=== PATIENT | female | born 1940 | race Caucasian/White ===

== ENCOUNTER 2018-01-18 12:41 | Inpatient (IN) | payer MEDICARE ==
[2018-01-18] MEDS ORDERED: ASPIRIN 81 MG TABLET, CHEWABLE PO ONE (13:02)
[2018-01-18] MEDS ORDERED: DILTIAZEM HCL/D5W 125 MG/125 ML RTUINJ IV PRN ×2 (13:19→15:35)
[2018-01-18] MEDS ORDERED: DILTIAZEM HCL INJ 25 MG/5 ML VIAL IV ONE (13:19)
[2018-01-18 13:27] LABS: ABSOLUTE BASOPHILS # (AUTO) 0.1 10^3/uL (0.0-0.2); ABSOLUTE LYMPHOCYTES (AUTO) 1.1 10^3/uL (0.5-4.7); ABSOLUTE MONOCYTES (AUTO) 0.9 10^3/uL (0.1-1.4); BASOPHILS % (AUTO) 0.6 % (0-2); EOSINOPHILS % (AUTO) 0.2 % (0-6); HEMATOCRIT 45.3 % (36.0-47.0); HEMOGLOBIN 15.2 g/dL (12.0-15.5); LYMPHOCYTES % (AUTO) 10.2 % (13-45); MEAN CORPUSCULAR HEMOGLOBIN 30.9 pg (27.0-33.4); MEAN CORPUSCULAR HGB CONC 33.4 g/dL (32.0-36.0); MEAN CORPUSCULAR VOLUME 93 fl (80-97); MONOCYTES % (AUTO) 7.9 % (3-13); PLATELET COUNT 303 10^3/uL (150-450); RED CELL DISTRIBUTION WIDTH 13.5 % (11.5-14.0); SEGMENTED NEUTROPHILS % (AUTO) 81.1 % (42-78); TOTAL CELLS COUNTED % (AUTO) 100 %; WHITE BLOOD COUNT 11.2 10^3/uL (4.0-10.5)
--- NOTE | 2018-01-18 13:43 | EKG REPORT ---
SEVERITY:- ABNORMAL ECG - A FLUTTER WITH RVR. MINIMAL ST DEPRESSION, INFERIOR LEADS NONSPECIFIC T ABNORMALITIES, LATERAL LEADS : Confirmed by: Wayne Herrera MD 18-Jan-2018 13:43:21
[2018-01-18 13:47] LABS: ALANINE AMINOTRANSFERASE 36 U/L (9-52); ALKALINE PHOSPHATASE 80 U/L (38-126); ANION GAP 9 (5-19); ASPARTATE AMINO TRANSFERASE 29 U/L (14-36); BILIRUBIN,DIRECT 0.2 mg/dL (0.0-0.4); BILIRUBIN,TOTAL 0.9 mg/dL (0.2-1.3); BLOOD UREA NITROGEN 24 mg/dL (7-20); CALCIUM 9.6 mg/dL (8.4-10.2); CARBON DIOXIDE 30 mmol/L (22-30); CHLORIDE 103 mmol/L (98-107); CREATINE KINASE 24 U/L (30-135); GLUCOSE 133 mg/dL (75-110); POTASSIUM 4.4 mmol/L (3.6-5.0); SODIUM 142.4 mmol/L (137-145); TOTAL PROTEIN 7.4 g/dL (6.3-8.2)
--- NOTE | 2018-01-18 13:56 | RADIOLOGY REPORT (SQ) ---
EXAM DESCRIPTION: CHEST SINGLE VIEW COMPLETED DATE/TIME: 01/18/2018 1:41 pm REASON FOR STUDY: afib new onset COMPARISON: None. EXAM PARAMETERS: NUMBER OF VIEWS: One view. TECHNIQUE: Single frontal radiographic view of the chest acquired. RADIATION DOSE: NA LIMITATIONS: None. FINDINGS: LUNGS AND PLEURA: The lungs are hyperexpanded. There is ill-defined opacification in the lung bases, possible chronic interstitial change. MEDIASTINUM AND HILAR STRUCTURES: No masses. Contour normal. HEART AND VASCULAR STRUCTURES: Cardiac silhouette is enlarged. Mild pulmonary vascular congestion. BONES: No acute findings. HARDWARE: None in the chest. OTHER: No other significant finding. IMPRESSION: 1. Borderline cardiomegaly with mild pulmonary vascular congestion but no mateo pulmona ry edema. 2. What appear to be chronic interstitial changes in the lung bases. Cannot entirely rule out a pne umonia in the left lower lobe or right lower lobe. TECHNICAL DOCUMENTATION: JOB ID: [id number] [employer]- All Rights Reserved Reading location - IP/workstation name: [email or web address]
[2018-01-18 13:58] LABS: CREATINE KINASE MB 0.92 ng/mL (<4.55); TROPONIN I 0.032 ng/mL
[2018-01-18 14:02] LABS: INTERNATIONAL RATION (INR) 1.02; PARTIAL THROMBOPLASTIN TIME 34.3 SEC (23.5-35.8); PROTHROMBIN TIME 14.1 SEC (11.4-15.4)
[2018-01-18] MEDS ORDERED: HEPARIN SOD (PORCINE) 1,000 UNIT/ML 10 ML VIAL IV ONE (14:09)
[2018-01-18] MEDS ORDERED: HEPARIN SODIUM,PORCINE/D5W 25,000 UNIT/250 ML RTUINJ IV PRN (14:09)
--- NOTE | 2018-01-18 14:45 | ER Document Report ---
ED General - General Chief Complaint: Shortness Of Breath Stated Complaint: SHORTNESS OF BREATH Time Seen by Provider: 01/18/18 13:17 TRAVEL OUTSIDE OF THE [place] IN LAST 30 DAYS: No - HPI Patient complains to provider of: Shortness of breath Notes: Patient coming in for shortness of breath was seen in local urgent care and was found to have tachycardia plus A. fib RVR therefore was referred to the ER for further evaluation. Patient upon my evaluation an EKG performed showing A. fib RVR with a heart rate between 150 on the monitor patient is mass between 150- 160. Patient denies any chest pain at this time. Patient states she has been short of breath for 1 week. Patient states her on past medical history significant for COPD due to smoking. Patient states she does continue to smoke. Patient denies any allergy denies any recent travel. Denies any fevers chills nausea vomiting diarrhea. - Related Data Allergies/Adverse Reactions: No Known Allergies Allergy (Unverified 01/18/18 12:50) Past Medical History - Social History Smoking Status: Current Every Day Smoker Family History: Reviewed & Not Pertinent Review of Systems - Review of Systems Constitutional: No symptoms reported EENT: No symptoms reported Cardiovascular: Dyspnea Respiratory: No symptoms reported Gastrointestinal: No symptoms reported Genitourinary: No symptoms reported Female Genitourinary: No symptoms reported Musculoskeletal: No symptoms reported Skin: No symptoms reported Hematologic/Lymphatic: No symptoms reported Neurological/Psychological: No symptoms reported -: Yes All other systems reviewed and negative Physical Exam - Vital signs Vitals: Temp Pulse Resp BP Pulse Ox 97.4 F 51 L 18 138/93 H 94 01/18/18 12:53 01/18/18 12:53 01/18/18 12:53 01/18/18 12:53 01/18/18 12:53 Interpretation: Tachycardic - General General appearance: Appears well, Alert - HEENT Head: Normocephalic, Atraumatic Eyes: Normal Pupils: PERRL - Respiratory Respiratory status: No respiratory distress Chest status: Nontender Breath sounds: Normal Chest palpation: Normal - Cardiovascular Rhythm: Irregularly irregular, Tachycardia Heart sounds: Normal auscultation Murmur: No - Abdominal Inspection: Normal Distension: No distension Bowel sounds: Normal Tenderness: Nontender Organomegaly: No organomegaly - Back Back: Normal, Nontender - Extremities General upper extremity: Normal inspection, Nontender, Normal color, Normal ROM , Normal temperature General lower extremity: Normal inspection, Nontender, Normal color, Normal ROM , Normal temperature, Normal weight bearing. No: Marla's sign - Neurological Neuro grossly intact: Yes Cognition: Normal Orientation: AAOx4 Viola Coma Scale Eye Opening: Spontaneous Viola Coma Scale Verbal: Oriented Zayda Coma Scale Motor: Obeys Commands Viola Coma Scale Total: 15 Speech: Normal Motor strength normal: LUE, RUE, LLE, RLE Sensory: Normal - Psychological Associated symptoms: Normal affect, Normal mood - Skin Skin Temperature: Warm Skin Moisture: Dry Skin Color: Normal Course - Re-evaluation Re-evalutation: 01/18/18 16:15 Patient coming in for evaluation of shortness of breath and tachycardia. Patient was found to be in A. fib RVR. Patient was given a dose of Cardizem and also started on heparin drip. Patient did obtain rate control. Laboratory studies that show signs of congestive heart failure. Patient otherwise feeling much better at the rate control. Chest x-ray shows fluid overload otherwise laboratory results not reveal any critical pathology. Discussed with hospitalist will admit the patient to IM for further evaluation if you are your new onset CHF. - Vital Signs Vital signs: Temp Pulse Resp BP Pulse Ox 97.4 F 51 L 22 H 128/98 H 91 L 01/18/18 12:53 01/18/18 12:53 01/18/18 16:01 01/18/18 16:01 01/18/18 16:01 - Laboratory Result Diagrams: 01/18/18 13:15 01/18/18 13:15 Laboratory results interpreted by me: 01/18/18 01/18/18 01/18/18 13:15 13:15 13:15 WBC 11.2 H Seg Neutrophils % 81.1 H Lymphocytes % 10.2 L Absolute Neutrophils 9.0 H BUN 24 H Glucose 133 H Creatine Kinase 24 L NT-Pro-B Natriuret Pep 9390 H Urine Protein Urine Ketones Urine Nitrite Urine Bilirubin Urine Urobilinogen Ur Leukocyte Esterase 01/18/18 14:30 WBC Seg Neutrophils % Lymphocytes % Absolute Neutrophils BUN Glucose Creatine Kinase NT-Pro-B Natriuret Pep Urine Protein 100 H Urine Ketones 25 H Urine Nitrite POSITIVE H Urine Bilirubin MODERATE H Urine Urobilinogen 2.0 H Ur Leukocyte Esterase LARGE H Critical Care Note - Critical Care Note Total time excluding time spent on procedures (mins): 35 Comments: Multiple evaluation for patient with A. fib RVR new-onset CHF new-onset A. fib Discharge - Discharge Clinical Impression: Atrial fibrillation with RVR Congestive heart failure Qualifiers: Heart failure type: unspecified Heart failure chronicity: unspecified Qualified Code(s): I50.9 - Heart failure, unspecified Condition: Good Disposition: ADMITTED INPATIENT Admitting Provider: Jermainist [facility] [place] [facility] Admitted: [facility]
[2018-01-18 15:06] LABS: APPEARANCE,URINE CLOUDY; BILIRUBIN,URINE MODERATE (NEGATIVE); COLOR,URINE DARK YELLOW; GLUCOSE, URINE NEGATIVE (NEGATIVE); KETONES,URINE 25 mg/dL (NEGATIVE); LEUKOCYTE ESTERASE,URINE LARGE (NEGATIVE); NITRITE,URINE POSITIVE (NEGATIVE); PROTEIN,URINE 100 mg/dL (NEGATIVE)
[2018-01-18 15:15] LABS: URINE AMPHETAMINES SCREEN NEGATIVE; URINE BARBITURATES SCREEN NEGATIVE; URINE BENZODIAZEPINES SCREEN NEGATIVE; URINE COCAINE SCREEN NEGATIVE; URINE MARIJUANA (THC) SCREEN NEGATIVE; URINE METHADONE SCREEN NEGATIVE; URINE PHENCYCLIDINE SCREEN NEGATIVE
[2018-01-18] MEDS ORDERED: ONDANSETRON HCL INJ/PF 4 MG/2 ML SDV IV PRN (15:16)
[2018-01-18] MEDS ORDERED: OXYCODONE-ACETAMINOPHEN 5-325 MG TABLET PO PRN (15:16)
[2018-01-18] MEDS ORDERED: LEVALBUTEROL HCL NEB 0.63 MG/3 ML AMPUL NEB PRN (15:16)
[2018-01-18] MEDS ORDERED: FUROSEMIDE 20 MG TABLET PO ONE (15:46)
[2018-01-18] MEDS ORDERED: HEPARIN SOD (PORCINE) 1,000 UNIT/ML 10 ML VIAL IV PRN (17:09)
[2018-01-18] MEDS: LEVOFLOXACIN 750 MG/D5W RTU 750 MG/150 ML RTUPB IV SCH (18:11)
[2018-01-18] MEDS: DILTIAZEM HCL 30 MG TABLET PO SCH ×2 (18:11→23:28)
--- NOTE | 2018-01-18 18:33 | PDOC CONSULTATION ---
Consultation Consult Date: 01/18/18 Attending physician:: KOMAL NAZARIO Consult reason:: Atrial flutter fibrillation History of Present Illness Admission Date/PCP: 01/18/18 15:48 Patient complains of: Shortness of breath and palpitations History of Present Illness: JAMES BRINK is a 77 year old female coming in for shortness of breath was seen in local urgent care and was found to have tachycardia plus A. fib RVR therefore was referred to the ER for further evaluation. Patient upon my evaluation an EKG performed showing A. fib RVR with a heart rate between 150 on the monitor patient is mass between 150-160. Patient denies any chest pain at this time. Patient states she has been short of breath for 1 week. Patient states her on past medical history significant for COPD due to smoking. Patient states she does continue to smoke. Patient denies any allergy denies any recent travel. Denies any fevers chills nausea vomiting diarrhea. This history obtained by the ER physician was reviewed and confirmed. In addition patient told me that she had noted cough and cold symptoms about 2 weeks ago. Since then she has also noted intermittent palpitations. The symptoms got worse today with increased shortness of breath and therefore see sought medical attention. Patient claims that prior to this episode of illness she was walking about 1-1 and half miles a day. She does however smokes on a regular basis. Patient denied any prior history of myocardial infarction, angina, congestive heart failure. Past Medical History Cardiac Medical History: Reports: Hyperlipidema Social History Information Source: Patient Smoking Status: Current Every Day Smoker - Advance Directive Resuscitation Status: Full Code Surrogate healthcare decision maker:: Patient's grandson with whom she lives with Family History Family History: Reviewed & Not Pertinent Parental Family History Reviewed: Yes Children Family History Reviewed: Yes Sibling(s) Family History Reviewed.: Yes - No significant family history Medication/Allergy Home Medications: Atorvastatin Calcium [Lipitor 20 mg Tablet] 20 mg PO QHS 01/18/18 Gabapentin [Neurontin 300 mg Capsule] 300 mg PO DAILY 01/18/18 Allergies/Adverse Reactions: No Known Allergies Allergy (Unverified 01/18/18 12:50) Review of Systems Review of Systems: Please see history of present illness and past medical history as wall. Constitutional: No fever or chills reported. Recent cough and cold symptoms reported Head : No recent chronic headaches, recent head injury. Eyes: No recent eye pain, diplopia, redness, discharge, acute visual changes. Ears: No recent chronic ear pain, acute hearing loss, ear discharge. Oral cavity: No recent ulcerations, bleeding, oral cavity discomfort. Neck: No recent acute neck pain reported. Hematologic: No recent easy bruising or bleeding or hematologic malignancy reported. Lymphatic: No recent lymphatic malignancy, chronic lymphadenopathy reported yet Cardiovascular system review: See history of present illness. Respiratory system review: No recent chronic cough, hemoptysis, blood clots in the lungs reported. Mild Shortness of breath on exertion Gastrointestinal system review: Negative for any recent acute or chronic abdominal pain, hematemesis, melena, recent change in bowel habits. Genitourinary system review: No recent acute or chronic hematuria, flank pain, UTI etc. reported. Skin system review: Negative for any recent abnormal bruising, no rash, no pruritus reported. Neurologic: No prior history of strokes, mini strokes, seizure disorder. Psychologic: No history of major psychosis or major depression reported. Musculoskeletal: Minor aches and pains reported. No acute joint swelling reported. Endocrine: No recent polyuria, polydipsia, recent heat or cold intolerance. Physical Exam Vital Signs: Temp Pulse Resp BP Pulse Ox 97.4 F 51 L 22 H 128/98 H 91 L 01/18/18 12:53 01/18/18 12:53 01/18/18 16:01 01/18/18 16:01 01/18/18 16:01 Exam: GENERAL: well-nourished and in no acute distress. Alert and oriented x3 HEAD: Atraumatic, normocephalic. EYES: Pupils equal round and reactive to light, extraocular movements intact, sclera anicteric, conjunctiva are normal. ENT: TMs normal, nares patent, oropharynx clear without exudates. Moist mucous membranes. No oral ulcerations or bleeding gums noted NECK: supple without lymphadenopathy. Trachea is central. No cervical or axillary lymphadenopathy noted. Carotids are 2+, JVD WNL LUNGS: Respiration seems mildly labored with significant scattered bilateral wheezes rales or rhonchi noted. No significant dullness noted on percussion. CHEST: Palpation of the chest wall shows no significant chest wall tenderness. No other significant abnormalities noted. HEART: [place] [employer], No PSH, 1/6 DAYANNA aortic area, 1/6 muir systolic murmur mitral area, no rubs, no gallops. ABDOMEN: Soft, no significant tenderness appreciated, normoactive bowel sounds. No guarding, no rebound. No rigidity noted . No masses appreciated. EXTREMITIES: Pedal pulses are 1-2+, no calf tenderness noted. No clubbing or cyanosis. Negative pedal edema noted NEUROLOGICAL: Focused neurological exam showed no significant neurologic deficit. Normal speech, no focal weakness appreciated. PSYCH: Normal mood, normal affect. Judgment and insight within normal limits. SKIN: No significant ecchymosis, skin is noted to be warm. MUSCULOSKELETAL EXAM: No significant acute joint swelling noted. Results Laboratory Results: 01/18/18 16:55 Troponin I 0.031 EKG Comments: Atrial flutter with variable conduction. No acute ST segment changes noted. Impressions: Chest X-Ray 01/18/18 13:02 IMPRESSION: 1. Borderline cardiomegaly with mild pulmonary vascular congestion but no mateo pulmonary edema. 2. What appear to be chronic interstitial changes in the lung bases. Cannot entirely rule out a pneumonia in the left lower lobe or right lower lobe. Assessment & Plan - Diagnosis (1) Atrial fibrillation with RVR Is this a current diagnosis for this admission?: Yes (2) Congestive heart failure Qualifiers: Heart failure type: unspecified Heart failure chronicity: unspecified Qualified Code(s): I50.9 - Heart failure, unspecified Is this a current diagnosis for this admission?: Yes (3) COPD exacerbation Is this a current diagnosis for this admission?: Yes (4) Tobacco abuse Is this a current diagnosis for this admission?: Yes (5) Dyslipidemia Is this a current diagnosis for this admission?: Yes - Notes Notes: Atrial fibrillation with rapid ventricular response: At this point recommend rate control and chronic anticoagulation. Agree with rate control attempts with IV diltiazem and drip. Exact duration not clear but could have been paroxysmal and ongoing for last 2 weeks. CHF: This is based on BNP level. Patient may have slight volume overload. Will recommend low-dose diuretics. COPD exacerbation: Recommend aggressive therapy with steroids, bronchodilator therapy. Recommend a Xopenex. Tobacco abuse: Patient has been advised to quit smoking. Dyslipidemia: Continue statin therapy. Have ordered a 2D echocardiogram. Agree with obtaining cardiac enzymes. - Time Time Spent: 30 to 50 Minutes - CODE STATUS was discussed, patient remains full code. Surrogate decision-maker patient's grandson. Multiple medical problems were addressed. More than 50% of the time spent coordinating care, discussing management plans with involved caregivers. Management plans discussed with involved personnels. Medical decision making was of moderate to high complexity , patient's has multiple comorbidities. Medications reviewed and adjusted accordingly: Yes
--- NOTE | 2018-01-18 18:38 | EKG REPORT ---
SEVERITY:- ABNORMAL ECG - ATRIAL FIBRILLATION, V-RATE 61-108 BORDERLINE T ABNORMALITIES, INFERIOR LEADS : Confirmed by: Wayne Herrera MD 18-Jan-2018 18:38:17
[2018-01-18] MEDS: APIXABAN 5 MG TABLET PO SCH (19:51)
--- NOTE | 2018-01-18 20:29 | PDOC H&P ---
History of Present Illness Admission Date/PCP: 01/18/18 15:48 Patient complains of: Feeling poorly with shortness of breath. History of Present Illness: 77-year-old female with a past medical history of hyperlipidemia and facial nerve pain described. Patient states that a couple weeks ago she did started feeling poorly with upper respiratory complaints. States that she may have had the flu, but was not tested. States that she has exposure to a grandchild in the home who was sick recently. Describes coughing up productive yellow sputum. Describes subjective fever and chills, unmeasured temperature. She described nausea without vomiting. Described 2 episodes of diarrhea. States that she does not have a primary care provider and attempted to receive care from an urgent care facility. On presentation to the emergency department patient has noted atrial flutter with RVR, new onset. She was placed on a diltiazem infusion improvement in her rate control. Patient denies a prior history of cardiac disease. Does describe a heart murmur at and a cardiac echo approximately 10 years ago in which she was told she had a leaky valve. Past Medical History Cardiac Medical History: Reports: Hyperlipidema, Heart Murmur - Story of heart murmur, told that she had a leaky valve. Neurological Medical History: Reports: Other - facial nerve pain described, unclear if this was trigeminal neuralgia Past Surgical History Past Surgical History: Reports: Hysterectomy Social History Smoking Status: Current Every Day Smoker - Advance Directive Resuscitation Status: Full Code Family History Family History: CVA, Hypertension, Malignancy - Colon cancer Parental Family History Reviewed: Yes Children Family History Reviewed: Yes Sibling(s) Family History Reviewed.: Yes Medication/Allergy Home Medications: Atorvastatin Calcium [Lipitor 20 mg Tablet] 20 mg PO QHS 01/18/18 Gabapentin [Neurontin 300 mg Capsule] 300 mg PO DAILY 01/18/18 Allergies/Adverse Reactions: No Known Allergies Allergy (Unverified 01/18/18 12:50) Review of Systems Constitutional: PRESENT: chills, fever(s) Eyes: PRESENT: as per HPI. ABSENT: visual disturbances Ears: PRESENT: as per HPI. ABSENT: hearing changes Nose, Mouth, and Throat: PRESENT: as per HPI. ABSENT: mouth pain Cardiovascular: PRESENT: chest pain Respiratory: PRESENT: dyspnea Gastrointestinal: PRESENT: diarrhea, nausea. ABSENT: abdominal pain, vomiting Genitourinary: ABSENT: dysuria, hematuria Musculoskeletal: ABSENT: deformity, joint swelling Neurological: ABSENT: abnormal speech, focal weakness, frequent falls Psychiatric: ABSENT: anxiety, depression, hallucinations Hematologic/Lymphatic: ABSENT: as per HPI, easy bruising Physical Exam Vital Signs: Temp Pulse Resp BP Pulse Ox 97.4 F 51 L 19 131/79 H 96 01/18/18 12:53 01/18/18 12:53 01/18/18 18:24 01/18/18 18:52 01/18/18 18:52 General appearance: PRESENT: no acute distress, cooperative, thin Head exam: PRESENT: atraumatic, normocephalic Eye exam: PRESENT: EOMI, PERRLA Ear exam: PRESENT: normal external ear exam. ABSENT: bleeding Mouth exam: PRESENT: moist, neck supple Neck exam: PRESENT: full ROM. ABSENT: JVD, tenderness Respiratory exam: PRESENT: crackles, wheezes. ABSENT: accessory muscle use, rhonchi Cardiovascular exam: PRESENT: +S1, +S2, tachycardia. ABSENT: bradycardia, diastolic murmur Pulses: PRESENT: normal radial pulses, normal dorsalis pedis pul Vascular exam: PRESENT: normal capillary refill. ABSENT: pallor GI/Abdominal exam: ABSENT: ascites, distended, mass Extremities exam: ABSENT: calf tenderness, joint swelling Musculoskeletal exam: PRESENT: ambulatory, full ROM Neurological exam: PRESENT: alert, oriented to person, oriented to place, oriented to time, oriented to situation, CN II-XII grossly intact Psychiatric exam: ABSENT: agitated, anxious Focused psych exam: ABSENT: catatonic, paranoid Skin exam: ABSENT: abrasion, cyanosis, mottled Results Laboratory Results: 01/18/18 16:55 Troponin I 0.031 EKG Comments: Atrial flutter with RVR with a rate of 104 Impressions: Chest X-Ray 01/18/18 13:02 IMPRESSION: 1. Borderline cardiomegaly with mild pulmonary vascular congestion but no mateo pulmonary edema. 2. What appear to be chronic interstitial changes in the lung bases. Cannot entirely rule out a pneumonia in the left lower lobe or right lower lobe. Assessment & Plan - Diagnosis (1) Atrial flutter with rapid ventricular response Is this a current diagnosis for this admission?: Yes Plan: EKG shows atrial flutter with RVR. We will continue IV diltiazem infusion. Will start 30 mg every 6 hours p.o. diltiazem. Attempt to transition off the IV drip, monitor patient on the [facility] floor. Cardiology is consulted given this is the patient's new onset of atrial flutter diagnosis. (2) COPD exacerbation Is this a current diagnosis for this admission?: Yes Plan: Shortness of breath with mild wheezing on examination. Possible COPD given patient's significant smoking history. Provide access to as needed napped medicines. Suspect an underlying respiratory infection. Will start Levaquin IV coverage. X-ray with pulmonary edema and the possibility of a lower lobe pneumonia (3) Dyslipidemia Is this a current diagnosis for this admission?: Yes Plan: Continue home medications. (4) Tobacco abuse Is this a current diagnosis for this admission?: Yes Plan: Nicotine patch. (5) Pneumonia Is this a current diagnosis for this admission?: Yes Plan: Possible gram-negative pneumonia, chest x-ray shows possible lower lobe pneumonia. Empiric Levaquin coverage. (6) Cardiomegaly Is this a current diagnosis for this admission?: Yes Plan: Check transthoracic echo Doing dose of Lasix now, given pulmonary congestion on exam.
[2018-01-18] MEDS ORDERED: NICOTINE 14 MG/24 HR PATCH.TD24 TD ONE (21:30)
[2018-01-18] MEDS: GABAPENTIN 300 MG CAPSULE PO SCH (21:36)
[2018-01-18] MEDS: ATORVASTATIN CALCIUM 20 MG TABLET PO SCH (21:38)
[2018-01-19] MEDS: DILTIAZEM HCL 30 MG TABLET PO SCH ×3 (05:32→19:22)
[2018-01-19 06:14] LABS: ABSOLUTE BASOPHILS # (AUTO) 0.1 10^3/uL (0.0-0.2); ABSOLUTE LYMPHOCYTES (AUTO) 0.9 10^3/uL (0.5-4.7); ABSOLUTE MONOCYTES (AUTO) 0.9 10^3/uL (0.1-1.4); ABSOLUTE NEUT (AUTO) 6.3 10^3/uL (1.7-8.2); BASOPHILS % (AUTO) 1.1 % (0-2); EOSINOPHILS % (AUTO) 0.5 % (0-6); HEMATOCRIT 40.3 % (36.0-47.0); HEMOGLOBIN 13.4 g/dL (12.0-15.5); LYMPHOCYTES % (AUTO) 11.4 % (13-45); MEAN CORPUSCULAR HEMOGLOBIN 30.8 pg (27.0-33.4); MEAN CORPUSCULAR HGB CONC 33.3 g/dL (32.0-36.0); MEAN CORPUSCULAR VOLUME 92 fl (80-97); MONOCYTES % (AUTO) 10.8 % (3-13); PLATELET COUNT 270 10^3/uL (150-450); RED BLOOD COUNT 4.36 10^6/uL (3.72-5.28); RED CELL DISTRIBUTION WIDTH 13.5 % (11.5-14.0); SEGMENTED NEUTROPHILS % (AUTO) 76.2 % (42-78); TOTAL CELLS COUNTED % (AUTO) 100 %; WHITE BLOOD COUNT 8.3 10^3/uL (4.0-10.5)
[2018-01-19 06:42] LABS: ANION GAP 8 (5-19); BLOOD UREA NITROGEN 22 mg/dL (7-20); CALCIUM 8.8 mg/dL (8.4-10.2); CARBON DIOXIDE 27 mmol/L (22-30); CHLORIDE 102 mmol/L (98-107); GLUCOSE 110 mg/dL (75-110); POTASSIUM 4.5 mmol/L (3.6-5.0); SODIUM 136.6 mmol/L (137-145); TRIGLYCERIDES 92 mg/dL (<150)
[2018-01-19 06:53] LABS: DIRECT LDL 75 mg/dL (<100)
[2018-01-19] MEDS ORDERED: GABAPENTIN 300 MG CAPSULE PO SCH (10:00)
[2018-01-19] MEDS: ASPIRIN 81 MG TABLET, CHEWABLE PO SCH (10:41)
[2018-01-19] MEDS: APIXABAN 5 MG TABLET PO SCH ×2 (10:41→19:20)
[2018-01-19] MEDS: NICOTINE 14 MG/24 HR PATCH.TD24 TD SCH (10:44)
[2018-01-19] MEDS ORDERED: FUROSEMIDE 20 MG TABLET PO ONE (11:00)
--- NOTE | 2018-01-19 13:32 | PDOC PROGRESS REPORT ---
Subjective Progress Note for:: 01/19/18 Subjective:: Patient seems to be doing significantly better with significant improvement. Pt is denying any chest arm or neck discomfort. Patient denying any PND, orthopnea. Patient denied any sustained palpitations, dizziness, syncope, near syncope. Patient denying any fever chills. Patient denying any other significant discomfort. Patient is maintaining sinus rhythm. Patient was noted to be earlier in atrial fibrillation on admission and subsequently had a run of paroxysmal atrial tachycardia. Review of systems: Rest review of systems negative. Medications: Medications have been reviewed. Reason For Visit: AFLUTTER WITH RVR Physical Exam Vital Signs: Temp Pulse Resp BP Pulse Ox 97.9 F 64 18 123/75 100 01/19/18 11:56 01/19/18 12:37 01/19/18 11:56 01/19/18 11:56 01/19/18 11:56 Intake & Output 01/18/18 01/19/18 01/20/18 06:59 06:59 06:59 Intake Total 882 475 Balance 882 475 Weight 52 kg Exam: GENERAL: well-nourished and in no acute distress. Alert and oriented x3 HEAD: Atraumatic, normocephalic. EYES: Pupils equal round and reactive to light, extraocular movements intact, sclera anicteric, conjunctiva are normal. ENT: TMs normal, nares patent, oropharynx clear without exudates. Moist mucous membranes. No oral ulcerations or bleeding gums noted NECK: supple without lymphadenopathy. Trachea is central. No cervical or axillary lymphadenopathy noted. Carotids are 2+, JVD WNL LUNGS: Respiration seems nonlabored, no significant accessory muscle action noted. Bilateral wheezes rales or rhonchi noted. No significant dullness noted on percussion. CHEST: Palpation of the chest wall shows no significant chest wall tenderness. No other significant abnormalities noted. HEART: [place] [employer], No PSH, 1/6 DAYANNA aortic area, 1/6 muir systolic murmur mitral area, no rubs, no gallops. ABDOMEN: Soft, no significant tenderness appreciated, normoactive bowel sounds. No guarding, no rebound. No rigidity noted . No masses appreciated. EXTREMITIES: Pedal pulses are 1-2+, no calf tenderness noted. No clubbing or cyanosis.trace pedal edema noted NEUROLOGICAL: Focused neurological exam showed no significant neurologic deficit. Normal speech, no focal weakness appreciated. PSYCH: Normal mood, normal affect. Judgment and insight within normal limits. SKIN: No significant ecchymosis, skin is noted to be warm. MUSCULOSKELETAL EXAM: No significant acute joint swelling noted. Results Laboratory Results: 01/19/18 05:54 01/19/18 05:54 01/19/18 01/19/18 05:54 05:54 WBC 8.3 RBC 4.36 Hgb 13.4 Hct 40.3 MCV 92 MCH 30.8 MCHC 33.3 RDW 13.5 Plt Count 270 Seg Neutrophils % 76.2 Lymphocytes % 11.4 L Monocytes % 10.8 Eosinophils % 0.5 Basophils % 1.1 Absolute Neutrophils 6.3 Absolute Lymphocytes 0.9 Absolute Monocytes 0.9 Absolute Eosinophils 0.0 Absolute Basophils 0.1 Sodium 136.6 L Potassium 4.5 Chloride 102 Carbon Dioxide 27 Anion Gap 8 BUN 22 H Creatinine 0.82 Est GFR ( Amer) > 60 Est GFR (Non-Af Amer) > 60 Glucose 110 Calcium 8.8 Magnesium 1.8 Triglycerides 92 Cholesterol 124.30 LDL Cholesterol Direct 75 VLDL Cholesterol 18.0 HDL Cholesterol 31 L 01/18/18 01/19/18 16:55 05:54 Troponin I 0.031 NT-Pro-B Natriuret Pep 5110 H EKG Comments: Twelve-lead EKG shows reviewed. Telemetry strips shows sinus rhythm. Patientnoted to have atrial fibrillation and short run of paroxysmal atrial tachycardia. Impressions: Chest X-Ray 01/18/18 13:02 IMPRESSION: 1. Borderline cardiomegaly with mild pulmonary vascular congestion but no mateo pulmonary edema. 2. What appear to be chronic interstitial changes in the lung bases. Cannot entirely rule out a pneumonia in the left lower lobe or right lower lobe. Assessment & Plan - Diagnosis (1) Atrial fibrillation with RVR Is this a current diagnosis for this admission?: Yes (2) Congestive heart failure Qualifiers: Heart failure type: unspecified Heart failure chronicity: unspecified Qualified Code(s): I50.9 - Heart failure, unspecified Is this a current diagnosis for this admission?: Yes (3) COPD exacerbation Is this a current diagnosis for this admission?: Yes (4) Tobacco abuse Is this a current diagnosis for this admission?: Yes (5) Dyslipidemia Is this a current diagnosis for this admission?: Yes - Notes Notes: Atrial fibrillation with rapid ventricular response: Currently today in sinus rhythm. At this point recommend rate control and chronic anticoagulation. Agree with rate control attempts with diltiazem. Exact duration not clear but could have been paroxysmal and ongoing for last 2 weeks. Paroxysmal atrial tachycardia: Possibly related to COPD and this is a common disorder associated with COPD. Cardizem is well-suited for this arrhythmia. CHF: This is based on BNP level. Patient may have slight volume overload. Will recommend low-dose diuretics. Possibly right-sided. 2D echo is pending. COPD exacerbation: Recommend aggressive therapy with steroids, bronchodilator therapy. Recommend a Xopenex. Tobacco abuse: Patient has been advised to quit smoking. Dyslipidemia: Continue statin therapy. Have ordered a 2D echocardiogram. - Time Time with patient: Greater than 35 minutes - CODE STATUS was discussed, patient remains full code. Surrogate decision-maker patient's grandson. Multiple medical problems were addressed. More than 50% of the time spent coordinating care, discussing management plans with involved caregivers. Management plans discussed with involved personnels. Medical decision making was of moderate to high complexity, patient's has multiple comorbidities. Medications reviewed and adjusted accordingly: Yes
[2018-01-19] MEDS: LEVOFLOXACIN 750 MG/D5W RTU 750 MG/150 ML RTUPB IV SCH (19:21)
--- NOTE | 2018-01-19 21:43 | PDOC PROGRESS REPORT ---
Subjective Progress Note for:: 01/19/18 Subjective:: 77-year-old presenting with COPD exacerbation, possible left-sided pneumonia, new onset atrial fibrillation with RVR. Was initially placed on IV diltiazem infusion and transition to p.o. diltiazem, this morning she converted to normal sinus rhythm. Cardiology is following the case. Continue her on Levaquin support for possible pneumonia, continue on nebulized medicines for COPD exacerbation. Patient's wheezing is improving on exam this morning. TTE test pending at present. Reason For Visit: AFLUTTER WITH RVR Physical Exam Vital Signs: Temp Pulse Resp BP Pulse Ox 97.8 F 63 22 H 116/56 L 100 01/19/18 15:39 01/19/18 15:39 01/19/18 15:39 01/19/18 15:39 01/19/18 15:39 Intake & Output 01/18/18 01/19/18 01/20/18 06:59 06:59 06:59 Intake Total 882 925 Balance 882 925 Weight 52 kg General appearance: PRESENT: no acute distress, cooperative, thin Head exam: PRESENT: atraumatic, normocephalic Eye exam: PRESENT: EOMI, PERRLA Ear exam: PRESENT: normal external ear exam. ABSENT: bleeding Mouth exam: PRESENT: moist, neck supple Neck exam: PRESENT: full ROM. ABSENT: JVD, tenderness Respiratory exam: PRESENT: improved crackles in lower lungs bilaterally, decreased wheezing. ABSENT: accessory muscle use, rhonchi Cardiovascular exam: PRESENT: +S1, +S2, tachycardia. ABSENT: bradycardia, diastolic murmur Pulses: PRESENT: normal radial pulses, normal dorsalis pedis pul Vascular exam: PRESENT: normal capillary refill. ABSENT: pallor GI/Abdominal exam: ABSENT: ascites, distended, mass Extremities exam: ABSENT: calf tenderness, joint swelling Musculoskeletal exam: PRESENT: ambulatory, full ROM Neurological exam: PRESENT: alert, oriented to person, oriented to place, oriented to time, oriented to situation, CN II-XII grossly intact Psychiatric exam: ABSENT: agitated, anxious Focused psych exam: ABSENT: catatonic, paranoid Skin exam: ABSENT: abrasion, cyanosis, mottled Results Laboratory Results: 01/19/18 05:54 01/19/18 05:54 01/19/18 01/19/18 05:54 05:54 WBC 8.3 RBC 4.36 Hgb 13.4 Hct 40.3 MCV 92 MCH 30.8 MCHC 33.3 RDW 13.5 Plt Count 270 Seg Neutrophils % 76.2 Lymphocytes % 11.4 L Monocytes % 10.8 Eosinophils % 0.5 Basophils % 1.1 Absolute Neutrophils 6.3 Absolute Lymphocytes 0.9 Absolute Monocytes 0.9 Absolute Eosinophils 0.0 Absolute Basophils 0.1 Sodium 136.6 L Potassium 4.5 Chloride 102 Carbon Dioxide 27 Anion Gap 8 BUN 22 H Creatinine 0.82 Est GFR ( Amer) > 60 Est GFR (Non-Af Amer) > 60 Glucose 110 Calcium 8.8 Magnesium 1.8 Triglycerides 92 Cholesterol 124.30 LDL Cholesterol Direct 75 VLDL Cholesterol 18.0 HDL Cholesterol 31 L 01/18/18 01/19/18 16:55 05:54 Troponin I 0.031 NT-Pro-B Natriuret Pep 5110 H Impressions: Chest X-Ray 01/18/18 13:02 IMPRESSION: 1. Borderline cardiomegaly with mild pulmonary vascular congestion but no mateo pulmonary edema. 2. What appear to be chronic interstitial changes in the lung bases. Cannot entirely rule out a pneumonia in the left lower lobe or right lower lobe. Assessment & Plan - Diagnosis (1) Atrial flutter with rapid ventricular response Is this a current diagnosis for this admission?: Yes (2) COPD exacerbation Is this a current diagnosis for this admission?: Yes (3) Dyslipidemia Is this a current diagnosis for this admission?: Yes (4) Tobacco abuse Is this a current diagnosis for this admission?: Yes (5) Pneumonia Is this a current diagnosis for this admission?: Yes (6) Cardiomegaly Is this a current diagnosis for this admission?: Yes - Plan Summary Plan Summary: (1) Atrial flutter with rapid ventricular response Is this a current diagnosis for this admission?: Yes Plan: Admission EKG shows atrial flutter with RVR. Now on PO Diltiazem, hold for HR <70. patient appears to have paroxysmal afib, and now back in NSR cardiology following (2) COPD exacerbation Is this a current diagnosis for this admission?: Yes Plan: Shortness of breath with mild wheezing on examination. Possible COPD given patient's significant smoking history. Provide access to as needed pulm medicines. continue Levaquin IV coverage for suspected underlying pulm infection. X-ray with pulmonary edema and the possibility of a lower lobe pneumonia continued on low dose lasix daily (3) Dyslipidemia Is this a current diagnosis for this admission?: Yes Plan: Continue home medications. (4) Tobacco abuse Is this a current diagnosis for this admission?: Yes Plan: Nicotine patch. (5) Pneumonia Is this a current diagnosis for this admission?: Yes Plan: Possible gram-negative pneumonia, chest x-ray shows possible lower lobe pneumonia. Empiric Levaquin coverage. (6) Cardiomegaly Is this a current diagnosis for this admission?: Yes Plan: Check transthoracic echo Doing dose of Lasix now, given pulmonary congestion on exam.
[2018-01-19] MEDS: ATORVASTATIN CALCIUM 20 MG TABLET PO SCH (22:53)
[2018-01-19] MEDS: GABAPENTIN 300 MG CAPSULE PO SCH (22:53)
[2018-01-20] MEDS: DILTIAZEM HCL 30 MG TABLET PO SCH ×4 (01:29→23:57)
[2018-01-20 07:30] LABS: HEMATOCRIT 40.7 % (36.0-47.0); HEMOGLOBIN 13.6 g/dL (12.0-15.5); MEAN CORPUSCULAR HEMOGLOBIN 30.7 pg (27.0-33.4); MEAN CORPUSCULAR HGB CONC 33.3 g/dL (32.0-36.0); MEAN CORPUSCULAR VOLUME 92 fl (80-97); PLATELET COUNT 321 10^3/uL (150-450); RED BLOOD COUNT 4.42 10^6/uL (3.72-5.28); RED CELL DISTRIBUTION WIDTH 13.3 % (11.5-14.0); WHITE BLOOD COUNT 7.3 10^3/uL (4.0-10.5)
[2018-01-20 08:05] LABS: ALBUMIN 3.1 g/dL (3.5-5.0); ANION GAP 8 (5-19); BLOOD UREA NITROGEN 20 mg/dL (7-20); CALCIUM 9.1 mg/dL (8.4-10.2); CARBON DIOXIDE 29 mmol/L (22-30); CHLORIDE 102 mmol/L (98-107); GLUCOSE 93 mg/dL (75-110); PHOSPHORUS 3.9 mg/dL (2.5-4.5); POTASSIUM 4.9 mmol/L (3.6-5.0); SODIUM 138.6 mmol/L (137-145)
[2018-01-20] MEDS ORDERED: METOPROLOL TARTRATE PF/INJ 5 MG/5 ML SDV IV ONE (08:49)
[2018-01-20] MEDS ORDERED: DRONEDARONE HYDROCHLORIDE 400 MG TABLET PO ONE (11:00)
[2018-01-20] MEDS: NICOTINE 14 MG/24 HR PATCH.TD24 TD SCH (11:04)
[2018-01-20] MEDS: FUROSEMIDE 20 MG TABLET PO SCH (11:05)
[2018-01-20] MEDS: APIXABAN 5 MG TABLET PO SCH ×2 (11:05→17:36)
[2018-01-20] MEDS ORDERED: ACETAMINOPHEN 325 MG TABLET ONE (11:05)
[2018-01-20] MEDS: ASPIRIN 81 MG TABLET, CHEWABLE PO SCH (11:06)
[2018-01-20] MEDS ORDERED: DILTIAZEM HCL 30 MG TABLET PO SCH (12:00)
[2018-01-20] MEDS ORDERED: TRAZODONE HCL 50 MG TABLET PO ONE (12:00)
--- NOTE | 2018-01-20 14:29 | PDOC PROGRESS REPORT ---
Subjective Progress Note for:: 01/20/18 Subjective:: Thinks she is doing better overall. Notes that she is having some difficulty with sleeping and feeling anxious at time. Heart rate was better controlled over last 24 hours however this AM was increased to 120-130s. Received 1 * dose of 5mg IV Lopressor with improvement in BPs. Denies chest pain, abdominal pain, NV. Admits that she is a daily smoker however has been refusing nicotene patch. Willing to try. No other complaints. Reason For Visit: AFLUTTER WITH RVR Physical Exam Vital Signs: Temp Pulse Resp BP Pulse Ox 97.6 F 132 H 18 89/67 L 96 01/20/18 12:27 01/20/18 12:27 01/20/18 12:27 01/20/18 12:27 01/20/18 12:27 Intake & Output 01/19/18 01/20/18 01/21/18 06:59 06:59 06:59 Intake Total 882 1543 Balance 882 1543 Weight 52 kg 51.1 kg General appearance: PRESENT: no acute distress, cooperative, thin Mouth exam: PRESENT: moist Respiratory exam: PRESENT: crackles, unlabored, wheezes - Scattered Cardiovascular exam: PRESENT: irregular rhythm, tachycardia GI/Abdominal exam: PRESENT: soft. ABSENT: tenderness Neurological exam: PRESENT: alert, awake, CN II-XII grossly intact Psychiatric exam: PRESENT: anxious Results Laboratory Results: 01/20/18 06:47 01/20/18 06:47 01/20/18 01/20/18 06:47 06:47 WBC 7.3 RBC 4.42 Hgb 13.6 Hct 40.7 MCV 92 MCH 30.7 MCHC 33.3 RDW 13.3 Plt Count 321 Sodium 138.6 Potassium 4.9 Chloride 102 Carbon Dioxide 29 Anion Gap 8 BUN 20 Creatinine 0.93 Est GFR ( Amer) > 60 Est GFR (Non-Af Amer) 58 L Glucose 93 Calcium 9.1 Phosphorus 3.9 Albumin 3.1 L 01/18/18 01/19/18 16:55 05:54 Troponin I 0.031 NT-Pro-B Natriuret Pep 5110 H Impressions: Chest X-Ray 01/18/18 13:02 IMPRESSION: 1. Borderline cardiomegaly with mild pulmonary vascular congestion but no mateo pulmonary edema. 2. What appear to be chronic interstitial changes in the lung bases. Cannot entirely rule out a pneumonia in the left lower lobe or right lower lobe. Assessment & Plan - Diagnosis (1) Atrial fibrillation with RVR Is this a current diagnosis for this admission?: Yes Plan: Admission EKG shows atrial flutter with RVR. - Has been on PO Diltiazem, with good HR control. This AM went back into RVR - Seen by cardiology who wrote from Multaq 400mg daily - Continue Cardizem 30mg q6 hour, hold for HR<60 or SBP<90 - Continue Eliquis 5mg BID daily - TTE ordered - Cardiology following, appreciate recs (2) COPD exacerbation Is this a current diagnosis for this admission?: Yes Plan: Presented with SOB with mild wheezing on examination. DD: Afib with RVR vs. concomitant COPD exacerbation - Has been on Levaquin IV coverage; consider stopping on 01/21 with continued improvement - Encouraged to use nicotene patches (3) Pneumonia Is this a current diagnosis for this admission?: Yes Plan: Unclear based on CXR - Has been on Levaquin, low threshold to dc on 01/21 if continues to improve clinically. (4) Tobacco abuse Is this a current diagnosis for this admission?: Yes Plan: Agreeable to use nicotene patches (5) Insomnia Qualifiers: Insomnia type: due to medical condition Qualified Code(s): G47.01 - Insomnia due to medical condition Is this a current diagnosis for this admission?: Yes Plan: Trial of Trazodone 25mg qhs PRN, ordered 01/20 - Time Time Spent with patient: 15-24 minutes Medications reviewed and adjusted accordingly: Yes Anticipated discharge: Home Within: within 48 hours
--- NOTE | 2018-01-20 16:40 | PDOC PROGRESS REPORT ---
Subjective Progress Note for:: 01/20/18 Subjective:: Patient seems to be doing significantly better this morning but had significant problems with heart rhythm overnight. Patient was noted to have paroxysmal atrial fibrillation and also bradycardia. Patient did receive some Cardizem but this was held because of relative bradycardia.. Pt is denying any chest arm or neck discomfort. Patient denying any PND, orthopnea. Patient denied any sustained palpitations, dizziness, syncope, near syncope. Patient denying any fever chills. Patient denying any other significant discomfort. Patient is maintaining sinus rhythm. Patient was noted to be earlier in atrial fibrillation on admission and subsequently had a run of paroxysmal atrial tachycardia. Patient previously also noted to be bradycardic. Review of systems: Rest review of systems negative. Medications: Medications have been reviewed. Reason For Visit: AFLUTTER WITH RVR Physical Exam Vital Signs: Temp Pulse Resp BP Pulse Ox 97.6 F 87 18 125/98 H 96 01/20/18 15:41 01/20/18 15:41 01/20/18 15:41 01/20/18 15:41 01/20/18 15:41 Intake & Output 01/19/18 01/20/18 01/21/18 06:59 06:59 06:59 Intake Total 882 1543 Balance 882 1543 Weight 52 kg 51.1 kg Exam: GENERAL: well-nourished and in no acute distress. Alert and oriented x3 HEAD: Atraumatic, normocephalic. EYES: Pupils equal round and reactive to light, extraocular movements intact, sclera anicteric, conjunctiva are normal. ENT: TMs normal, nares patent, oropharynx clear without exudates. Moist mucous membranes. No oral ulcerations or bleeding gums noted NECK: supple without lymphadenopathy. Trachea is central. No cervical or axillary lymphadenopathy noted. Carotids are 2+, JVD WNL LUNGS: Respiration seems nonlabored, no significant accessory muscle action noted. Mild bilateral wheezes rales or rhonchi noted. No significant dullness noted on percussion. Diminished breath sounds noted both lungs most likely related to emphysema CHEST: Palpation of the chest wall shows no significant chest wall tenderness. No other significant abnormalities noted. HEART: [place] [employer], No PSH, 1/6 DAYANNA aortic area, 1/6 muir systolic murmur mitral area, no rubs, no gallops. ABDOMEN: Soft, no significant tenderness appreciated, normoactive bowel sounds. No guarding, no rebound. No rigidity noted . No masses appreciated. EXTREMITIES: Pedal pulses are 1-2+, no calf tenderness noted. No clubbing or cyanosis.trace pedal edema noted NEUROLOGICAL: Focused neurological exam showed no significant neurologic deficit. Normal speech, no focal weakness appreciated. PSYCH: Normal mood, normal affect. Judgment and insight within normal limits. SKIN: No significant ecchymosis, skin is noted to be warm. MUSCULOSKELETAL EXAM: No significant acute joint swelling noted. Results Laboratory Results: 01/20/18 06:47 01/20/18 06:47 01/20/18 01/20/18 06:47 06:47 WBC 7.3 RBC 4.42 Hgb 13.6 Hct 40.7 MCV 92 MCH 30.7 MCHC 33.3 RDW 13.3 Plt Count 321 Sodium 138.6 Potassium 4.9 Chloride 102 Carbon Dioxide 29 Anion Gap 8 BUN 20 Creatinine 0.93 Est GFR ( Amer) > 60 Est GFR (Non-Af Amer) 58 L Glucose 93 Calcium 9.1 Phosphorus 3.9 Albumin 3.1 L 01/18/18 01/19/18 16:55 05:54 Troponin I 0.031 NT-Pro-B Natriuret Pep 5110 H EKG Comments: Telemetry strips were reviewed. Shows sinus bradycardia, paroxysmal atrial fibrillation, paroxysmal atrial tachycardia. Impressions: Chest X-Ray 01/18/18 13:02 IMPRESSION: 1. Borderline cardiomegaly with mild pulmonary vascular congestion but no mateo pulmonary edema. 2. What appear to be chronic interstitial changes in the lung bases. Cannot entirely rule out a pneumonia in the left lower lobe or right lower lobe. Assessment & Plan - Diagnosis (1) Atrial fibrillation with RVR Is this a current diagnosis for this admission?: Yes (2) Congestive heart failure Qualifiers: Heart failure type: unspecified Heart failure chronicity: unspecified Qualified Code(s): I50.9 - Heart failure, unspecified Is this a current diagnosis for this admission?: Yes (3) COPD exacerbation Is this a current diagnosis for this admission?: Yes (4) Tobacco abuse Is this a current diagnosis for this admission?: Yes (5) Dyslipidemia Is this a current diagnosis for this admission?: Yes (6) Bradycardia Is this a current diagnosis for this admission?: Yes - Notes Notes: Atrial fibrillation with rapid ventricular response: Started patient on multaq therapy at 400 p.o. twice daily to see if patient can be maintained in sinus rhythm. At this point recommend rate control and chronic anticoagulation. Agree with rate control attempts with diltiazem. Exact duration not clear but could have been paroxysmal and ongoing for last 2 weeks. Patient already on chronic anticoagulation started during this admission. Paroxysmal atrial tachycardia: Possibly related to COPD and this is a common disorder associated with COPD. Cardizem is well-suited for this arrhythmia. Recommend starting back Cardizem at 30 mg p.o. every 6 but hold if heart rate below 60 bpm CHF: This is based on BNP level. Patient may have slight volume overload. Will recommend low-dose diuretics. Possibly right-sided. 2D echo is pending. COPD exacerbation: Recommend aggressive therapy with steroids, bronchodilator therapy. Recommend a Xopenex. Tobacco abuse: Patient has been advised to quit smoking. Patient has symptoms indicative of tobacco withdrawal but does not want nicotine patch. Dyslipidemia: Continue statin therapy. Bradycardia: Patient noted to have mild sinus bradycardia. Possibly related to sinus node suppression secondary to atrial fibrillation. However if patient becomes symptomatic may need pacemaker placement. This was explained to the patient. Patient may end up needing prolonged monitoring as an outpatient. Have ordered a 2D echocardiogram. This is still pending. - Time Time with patient: Greater than 35 minutes - CODE STATUS was discussed, patient remains full code. Surrogate decision-maker unchanged. Multiple medical problems were addressed. More than 50% of the time spent coordinating care, discussing management plans with involved caregivers. Management plans discussed with involved personnels. Medical decision making was of moderate to high complexity, patient's has multiple comorbidities. Medications reviewed and adjusted accordingly: Yes
[2018-01-20] MEDS: LEVOFLOXACIN 750 MG/D5W RTU 750 MG/150 ML RTUPB IV SCH (17:36)
[2018-01-20] MEDS: METOPROLOL TARTRATE PF/INJ 5 MG/5 ML SDV IV PRN (17:37)
[2018-01-20] MEDS: ATORVASTATIN CALCIUM 20 MG TABLET PO SCH (21:38)
[2018-01-20] MEDS: DRONEDARONE HYDROCHLORIDE 400 MG TABLET PO SCH (21:38)
[2018-01-20] MEDS: GABAPENTIN 300 MG CAPSULE PO SCH (21:38)
[2018-01-21] MEDS: DILTIAZEM HCL 30 MG TABLET PO SCH ×3 (05:51→17:46)
[2018-01-21] MEDS: APIXABAN 5 MG TABLET PO SCH ×2 (09:20→17:46)
[2018-01-21] MEDS: ASPIRIN 81 MG TABLET, CHEWABLE PO SCH (09:20)
[2018-01-21] MEDS: NICOTINE 14 MG/24 HR PATCH.TD24 TD SCH (09:21)
[2018-01-21] MEDS: DRONEDARONE HYDROCHLORIDE 400 MG TABLET PO SCH ×2 (09:21→22:26)
[2018-01-21] MEDS: FUROSEMIDE 20 MG TABLET PO SCH (09:21)
--- NOTE | 2018-01-21 09:39 | EKG REPORT ---
SEVERITY:- ABNORMAL ECG - ATRIAL FIBRILLATION : Confirmed by: Melchor Moore 21-Jan-2018 09:38:57
--- NOTE | 2018-01-21 14:02 | XCELERA REPORT ---
[address] [address] Transthoracic Echocardiogram Report Name: JAMES BRINK Age: 77 yrs Gender: Female : 1940 Patient Status: Inpatient Patient Location: [address] [place] [address] Study Date: 01/21/2018 10:35 AM Height: 59 in Weight: 108 lb BSA: 1.4 m2 Procedure: A complete two-dimensional transthoracic echocardiogram was performed (2D, M-mode, spectral and color flow Doppler). The study was technically adequate with some images being suboptimal in quality. Reason For Study: heart failure, new onset aflutter rvr Ordering Physician: EMILY OROZCO Performed By: Laura Diaz Interpretation Summary The left ventricular ejection fraction is normal. The left ventricle is grossly normal size. There is borderline concentric left ventricular hypertrophy. LV diastolic function could not be adequately assessed due to significant valve regurgitation and/or stenosis. Wall motion cannot be accurately commented on, but no definite regional wall motion abnormalities noted. The right ventricle appears to be hypertrophied The right ventricle is normal in size, thickness and function The right ventricular systolic function is normal. The left atrium is moderately dilated. The right atrium is normal in size There is severe mitral annular calcification. There is severe mitral leaflet calcification. There is moderate mitral stenosis. However could not asses this properly. A severe MS can be missed. There is a mild to moderate amount of mitral regurgitation There is no aortic valve stenosis No aortic regurgitation is present. The pulmonic valve is not well visualized. The aortic root is not well visualized but is probably normal size. The inferior vena cava appeared normal and decreased > 50% with respiration (RAP 5-10 mmHg) There is no pericardial effusion. MMode/2D Measurements & Calculations RVDd: 2.5 cm LVIDd: 4.1 cm FS: 38.4 % Ao root diam: 3.2 cm IVSd: 0.91 cm LVIDs: 2.6 cm EDV(Teich): 76.3 ml LVPWd: 0.88 cmESV(Teich): 23.6 ml Ao root area: 8.0 cm2 EF(Teich): 69.1 % LA dimension: 4.6 cm LVOT diam: 1.9 cm LVOT area: 3.0 cm2 Doppler Measurements & Calculations MV E max daniel: MV V2 max: MV P1/2t max daniel: Ao V2 max: 258.6 cm/sec 244.3 cm/sec 257.7 cm/sec 99.9 cm/sec MV max PG: MV P1/2t: 127.6 msec Ao max P.9 mmHg MVA(P1/2t): 1.7 cm2 4.0 mmHg MV V2 mean: MV dec slope: Ao V2 mean: 143.7 cm/sec 591.3 cm/sec2 69.8 cm/sec MV mean PG: Ao mean P.9 mmHg 2.3 mmHg MV V2 VTI: Ao V2 VTI: 63.8 cm 17.5 cm MVA(VTI): JULIAN(I,D): 2.7 cm2 0.74 cm2 JULIAN(V,D): 2.6 cm2 LV V1 max PG: SV(LVOT): 47.3 mlPA V2 max: TR max daniel: 3.1 mmHg 58.2 cm/sec 331.2 cm/sec LV V1 mean PG: PA max P.4 mmHg TR max P.4 mmHg 43.9 mmHg LV V1 max: 87.5 cm/sec LV V1 mean: 53.2 cm/sec LV V1 VTI: 15.9 cm Left Ventricle The left ventricle is grossly normal size. There is borderline concentric left ventricular hypertrophy. The left ventricular ejection fraction is normal. LV diastolic function could not be adequately assessed due to significant valve regurgitation and/or stenosis. Wall motion cannot be accurately commented on, but no definite regional wall motion abnormalities noted. Right Ventricle The right ventricle is normal in size, thickness and function. The right ventricle appears to be hypertrophied. The right ventricular systolic function is normal. Atria The right atrium is normal in size. The left atrium is moderately dilated. Interarterial septum not well visualized and not well dopplered. Cannot comment on ASD/PFO presence. Mitral Valve There is severe mitral annular calcification. There is severe mitral leaflet calcification. There is moderate mitral stenosis. There is a mild to moderate amount of mitral regurgitation. Aortic Valve The aortic valve is grossly normal. There is no aortic valve stenosis. No aortic regurgitation is present. Tricuspid Valve The tricuspid valve is not well visualized, but is grossly normal. There is no tricuspid stenosis. There is a mild amount of tricuspid regurgitation. Right ventricular systolic pressure is estimated to be elevated at 40- 50mmHg. There is mild to moderate pulmonary hypertension by echo. Pulmonic Valve The pulmonic valve is not well visualized. Great Vessels The aortic root is not well visualized but is probably normal size. The inferior vena cava appeared normal and decreased > 50% with respiration (RAP 5-10 mmHg). Effusions There is no pericardial effusion. : EMILY OROZCO > Melchor Moore
[2018-01-21] MEDS: LEVOFLOXACIN 750 MG/D5W RTU 750 MG/150 ML RTUPB IV SCH (17:46)
--- NOTE | 2018-01-21 17:56 | PDOC PROGRESS REPORT ---
Subjective Progress Note for:: 01/21/18 Subjective:: No complaints Review of systems All organ systems evaluated and negative except as in subjective All significant laboratories and diagnostics have been reviewed Reason For Visit: AFLUTTER WITH RVR Physical Exam Vital Signs: Temp Pulse Resp BP Pulse Ox 97.6 F 89 20 102/71 95 01/21/18 03:42 01/21/18 07:00 01/21/18 03:42 01/21/18 03:42 01/21/18 03:42 Intake & Output 01/20/18 01/21/18 01/22/18 06:59 06:59 06:59 Intake Total 1543 990 Balance 1543 990 Weight 51.1 kg 52.9 kg General appearance: PRESENT: cooperative, thin Head exam: PRESENT: atraumatic, normocephalic Eye exam: PRESENT: EOMI, PERRLA Ear exam: PRESENT: normal external ear exam Neck exam: PRESENT: full ROM. ABSENT: JVD, lymphadenopathy, tenderness Respiratory exam: PRESENT: clear to auscultation tato Cardiovascular exam: PRESENT: irregular rhythm. ABSENT: diastolic murmur, systolic murmur Vascular exam: PRESENT: normal capillary refill GI/Abdominal exam: ABSENT: normal bowel sounds, soft, tenderness Extremities exam: PRESENT: full ROM Musculoskeletal exam: PRESENT: ambulatory Neurological exam: PRESENT: alert, awake, oriented to person, oriented to place , oriented to time, oriented to situation, CN II-XII grossly intact Psychiatric exam: PRESENT: appropriate affect, normal mood Skin exam: PRESENT: intact, normal color Results Laboratory Results: 01/20/18 06:47 01/20/18 06:47 01/20/18 06:47 Sodium 138.6 Potassium 4.9 Chloride 102 Carbon Dioxide 29 Anion Gap 8 BUN 20 Creatinine 0.93 Est GFR ( Amer) > 60 Est GFR (Non-Af Amer) 58 L Glucose 93 Calcium 9.1 Phosphorus 3.9 Albumin 3.1 L 01/18/18 01/19/18 16:55 05:54 Troponin I 0.031 NT-Pro-B Natriuret Pep 5110 H Impressions: Chest X-Ray 01/18/18 13:02 IMPRESSION: 1. Borderline cardiomegaly with mild pulmonary vascular congestion but no mateo pulmonary edema. 2. What appear to be chronic interstitial changes in the lung bases. Cannot entirely rule out a pneumonia in the left lower lobe or right lower lobe. Assessment & Plan - Diagnosis (1) Atrial flutter with rapid ventricular response Is this a current diagnosis for this admission?: Yes Plan: Continue current management. Awaiting echocardiogram - Time Time Spent with patient: 15-24 minutes Medications reviewed and adjusted accordingly: Yes Anticipated discharge: Home with Homehealth Within: within 24 hours - Inpatient Certification Based on my medical assessment, after consideration of the patient's comorbidities, presenting symptoms, or acuity I expect that the services needed warrant INPATIENT care.: Yes I certify that my determination is in accordance with my understanding of Medicare's requirements for reasonable and necessary INPATIENT services [42 CFR 412.3e].: Yes Medical Necessity: Need Close Monitoring Due to Risk of Patient Decompensation
[2018-01-21] MEDS: METOPROLOL TARTRATE PF/INJ 5 MG/5 ML SDV IV PRN (20:27)
[2018-01-21] MEDS ORDERED: FUROSEMIDE 40 MG TABLET PO SCH (20:30)
--- NOTE | 2018-01-21 20:32 | PDOC PROGRESS REPORT ---
Subjective Progress Note for:: 01/21/18 Subjective:: Patient seems to be doing significantly better this morning. Patient remains in atrial fibrillation but heart rate is better controlled. Pt is denying any chest arm or neck discomfort. Patient denying any PND, orthopnea. Patient denied any sustained palpitations, dizziness, syncope, near syncope. Patient denying any fever chills. Patient denying any other significant discomfort. Review of systems: Rest review of systems negative. Medications: Medications have been reviewed. Reason For Visit: AFLUTTER WITH RVR Physical Exam Vital Signs: Temp Pulse Resp BP Pulse Ox 97.9 F 62 18 95/69 L 95 01/21/18 19:35 01/21/18 19:35 01/21/18 19:35 01/21/18 19:35 01/21/18 19:35 Intake & Output 01/20/18 01/21/18 01/22/18 06:59 06:59 06:59 Intake Total 1543 990 700 Balance 1543 990 700 Weight 51.1 kg 52.9 kg Exam: GENERAL: well-nourished and in no acute distress. Alert and oriented x3 HEAD: Atraumatic, normocephalic. EYES: Pupils equal round and reactive to light, extraocular movements intact, sclera anicteric, conjunctiva are normal. ENT: TMs normal, nares patent, oropharynx clear without exudates. Moist mucous membranes. No oral ulcerations or bleeding gums noted NECK: supple without lymphadenopathy. Trachea is central. No cervical or axillary lymphadenopathy noted. Carotids are 2+, JVD WNL LUNGS: Respiration seems nonlabored, no significant accessory muscle action noted. Few a scattered wheezes rales or rhonchi noted. No significant dullness noted on percussion. CHEST: Palpation of the chest wall shows no significant chest wall tenderness. No other significant abnormalities noted. HEART: [place] [employer], No PSH, 1/6 DAYANNA aortic area, 1/6 muir systolic murmur mitral area, no rubs, no gallops. ABDOMEN: Soft, no significant tenderness appreciated, normoactive bowel sounds. No guarding, no rebound. No rigidity noted . No masses appreciated. EXTREMITIES: Pedal pulses are 1-2+, no calf tenderness noted. No clubbing or cyanosis.trace pedal edema noted NEUROLOGICAL: Focused neurological exam showed no significant neurologic deficit. Normal speech, no focal weakness appreciated. PSYCH: Normal mood, normal affect. Judgment and insight within normal limits. SKIN: No significant ecchymosis, skin is noted to be warm. MUSCULOSKELETAL EXAM: No significant acute joint swelling noted. Results Laboratory Results: 01/20/18 06:47 01/20/18 06:47 01/18/18 01/19/18 01/21/18 16:55 05:54 15:01 Troponin I 0.031 NT-Pro-B Natriuret Pep 5110 H 5230 H Impressions: Chest X-Ray 01/18/18 13:02 IMPRESSION: 1. Borderline cardiomegaly with mild pulmonary vascular congestion but no mateo pulmonary edema. 2. What appear to be chronic interstitial changes in the lung bases. Cannot entirely rule out a pneumonia in the left lower lobe or right lower lobe. Assessment & Plan - Diagnosis (1) Atrial fibrillation with RVR Is this a current diagnosis for this admission?: Yes (2) Congestive heart failure Qualifiers: Heart failure type: right-sided Heart failure chronicity: acute on chronic Qualified Code(s): I50.813 - Acute on chronic right heart failure Is this a current diagnosis for this admission?: Yes (3) COPD exacerbation Is this a current diagnosis for this admission?: Yes (4) Tobacco abuse Is this a current diagnosis for this admission?: Yes (5) Dyslipidemia Is this a current diagnosis for this admission?: Yes (6) Bradycardia Is this a current diagnosis for this admission?: Yes (7) Mitral stenosis Qualifiers: Cardiac valve disease etiology: etiology unspecified Qualified Code(s): I05.0 - Rheumatic mitral stenosis Is this a current diagnosis for this admission?: Yes (8) Mitral regurgitation Qualifiers: Cardiac valve disease etiology: etiology unspecified Qualified Code(s): I34.0 - Nonrheumatic mitral (valve) insufficiency Is this a current diagnosis for this admission?: Yes - Notes Notes: 2D echocardiogram was technically difficult but does suggest at least moderate mitral stenosis. Patient also noted to have moderate mitral regurgitation. BNP level came back still elevated. Have increased Lasix to 20 mg p.o. twice daily. Continue multaq therapy and Cardizem therapy. Currently patient receiving approximately total of 180 mg of Cardizem daily therefore could be placed on either Cardizem CD 180 mg p.o. daily or 120 mg p.o. twice daily on discharge. Patient will also benefit from a transesophageal echocardiogram or a cardiac MRI /CTA to evaluate mitral stenosis further. Patient will also benefit from a formal pulmonary function test to look at her lung function asked to decide adequacy of her candidacy to address any open heart surgery. Atrial fibrillation with rapid ventricular response: Started patient on multaq therapy at 400 p.o. twice daily to see if patient can be maintained in sinus rhythm. At this point recommend rate control and chronic anticoagulation. Agree with rate control attempts with diltiazem. Exact duration not clear but could have been paroxysmal and ongoing for last 2 weeks. Patient already on chronic anticoagulation started during this admission. Paroxysmal atrial tachycardia: Possibly related to COPD and this is a common disorder associated with COPD. Cardizem is well-suited for this arrhythmia. Recommend starting back Cardizem at 30 mg p.o. every 6 but hold if heart rate below 60 bpm CHF: This is based on BNP level. Patient may have slight volume overload. Will recommend low-dose diuretics. Possibly right-sided. Possibly also related to valvular heart disease. Mitral regurgitation: Overall felt to be moderate. Mitral stenosis: [place] to be clinically moderate. COPD exacerbation: Recommend aggressive therapy with steroids, bronchodilator therapy. Recommend a Xopenex. Tobacco abuse: Patient has been advised to quit smoking. Patient has symptoms indicative of tobacco withdrawal but does not want nicotine patch. Dyslipidemia: Continue statin therapy. Bradycardia: This was noted to be transient. Possibly related to sinus node suppression secondary to atrial fibrillation. However if patient becomes symptomatic may need pacemaker placement. This was explained to the patient. Patient may end up needing prolonged monitoring as an outpatient. 2D echocardiogram results reviewed.. - Time Time with patient: Greater than 35 minutes - CODE STATUS was discussed, patient remains full code. Surrogate decision-maker unchanged. Multiple medical problems were addressed. More than 50% of the time spent coordinating care, discussing management plans with involved caregivers. Management plans discussed with involved personnels. Medical decision making was of moderate to high complexity, patient's has multiple comorbidities. Medications reviewed and adjusted accordingly: Yes
[2018-01-21] MEDS ORDERED: FUROSEMIDE 20 MG TABLET PO ONE (21:30)
[2018-01-21] MEDS ORDERED: TRAZODONE HCL 50 MG TABLET PO SCH (22:00)
[2018-01-21] MEDS: ATORVASTATIN CALCIUM 20 MG TABLET PO SCH (22:26)
[2018-01-21] MEDS: GABAPENTIN 300 MG CAPSULE PO SCH (22:26)
[2018-01-22] MEDS: DILTIAZEM HCL 30 MG TABLET PO SCH ×2 (00:14→06:26)
[2018-01-22] MEDS: NICOTINE 14 MG/24 HR PATCH.TD24 TD SCH (09:11)
[2018-01-22] MEDS: ASPIRIN 81 MG TABLET, CHEWABLE PO SCH (09:11)
[2018-01-22] MEDS: APIXABAN 5 MG TABLET PO SCH ×2 (09:11→17:49)
[2018-01-22] MEDS: DRONEDARONE HYDROCHLORIDE 400 MG TABLET PO SCH ×2 (09:11→21:09)
[2018-01-22] MEDS: FUROSEMIDE 20 MG TABLET PO SCH ×2 (09:11→17:49)
--- NOTE | 2018-01-22 10:39 | EKG REPORT ---
SEVERITY:- ABNORMAL ECG - ATRIAL FIBRILLATION, V-RATE 52-82 : Confirmed by: Melchor Moore 22-Jan-2018 10:38:24
--- NOTE | 2018-01-22 13:13 | PDOC PROGRESS REPORT ---
Subjective Progress Note for:: 01/22/18 Subjective:: Patient seems to be doing better this morning. Patient was noted to convert to sinus rhythm yesterday afternoon but later on at night went back into atrial fibrillation with rapid ventricular response. It seems patient needed IV medication to help control heart rate. Pt is denying any chest arm or neck discomfort. Patient denying any PND, orthopnea. Patient denied any sustained palpitations, dizziness, syncope, near syncope. Patient denying any fever chills. Patient denying any other significant discomfort. 2D echocardiogram results were discussed in detail with the patient and also patient's grandson who is making medical decisions for the patient. Review of systems: Rest review of systems negative. Medications: Medications have been reviewed. Reason For Visit: AFLUTTER WITH RVR Physical Exam Vital Signs: Temp Pulse Resp BP Pulse Ox 97.6 F 36 L 17 120/73 98 01/22/18 11:56 01/22/18 11:56 01/22/18 11:56 01/22/18 11:56 01/22/18 11:56 Intake & Output 01/21/18 01/22/18 01/23/18 06:59 06:59 06:59 Intake Total 990 700 236 Balance 990 700 236 Weight 52.9 kg 52.8 kg Exam: GENERAL: well-nourished and in no acute distress. Alert and oriented x3 HEAD: Atraumatic, normocephalic. EYES: Pupils equal round and reactive to light, extraocular movements intact, sclera anicteric, conjunctiva are normal. ENT: TMs normal, nares patent, oropharynx clear without exudates. Moist mucous membranes. No oral ulcerations or bleeding gums noted NECK: supple without lymphadenopathy. Trachea is central. No cervical or axillary lymphadenopathy noted. Carotids are 2+, JVD WNL LUNGS: Respiration seems nonlabored, no significant accessory muscle action noted. Few a scattered wheezes rales or rhonchi noted. No significant dullness noted on percussion. CHEST: Palpation of the chest wall shows no significant chest wall tenderness. No other significant abnormalities noted. HEART: [place] [employer], No PSH, 1/6 DAYANNA aortic area, 1/6 muir systolic murmur mitral area, no rubs, no gallops. No significant diastolic murmur noted. ABDOMEN: Soft, no significant tenderness appreciated, normoactive bowel sounds. No guarding, no rebound. No rigidity noted . No masses appreciated. EXTREMITIES: Pedal pulses are 1-2+, no calf tenderness noted. No clubbing or cyanosis. negative pedal edema noted NEUROLOGICAL: Focused neurological exam showed no significant neurologic deficit. Normal speech, no focal weakness appreciated. PSYCH: Normal mood, normal affect. Judgment and insight within normal limits. SKIN: No significant ecchymosis, skin is noted to be warm. MUSCULOSKELETAL EXAM: No significant acute joint swelling noted. Results Laboratory Results: 01/20/18 06:47 01/20/18 06:47 01/18/18 01/19/18 01/21/18 16:55 05:54 15:01 Troponin I 0.031 NT-Pro-B Natriuret Pep 5110 H 5230 H EKG Comments: Shows atrial fibrillation with controlled ventricular response with intermittent high rates Impressions: Chest X-Ray 01/18/18 13:02 IMPRESSION: 1. Borderline cardiomegaly with mild pulmonary vascular congestion but no mateo pulmonary edema. 2. What appear to be chronic interstitial changes in the lung bases. Cannot entirely rule out a pneumonia in the left lower lobe or right lower lobe. Assessment & Plan - Diagnosis (1) Atrial fibrillation with RVR Is this a current diagnosis for this admission?: Yes (2) Congestive heart failure Qualifiers: Heart failure type: unspecified Heart failure chronicity: unspecified Qualified Code(s): I50.9 - Heart failure, unspecified Is this a current diagnosis for this admission?: Yes (3) COPD exacerbation Is this a current diagnosis for this admission?: Yes (4) Tobacco abuse Is this a current diagnosis for this admission?: Yes (5) Dyslipidemia Is this a current diagnosis for this admission?: Yes (6) Bradycardia Is this a current diagnosis for this admission?: Yes (7) Mitral stenosis Qualifiers: Cardiac valve disease etiology: etiology unspecified Qualified Code(s): I05.0 - Rheumatic mitral stenosis Is this a current diagnosis for this admission?: Yes (8) Mitral regurgitation Qualifiers: Cardiac valve disease etiology: etiology unspecified Qualified Code(s): I34.0 - Nonrheumatic mitral (valve) insufficiency Is this a current diagnosis for this admission?: Yes - Notes Notes: Atrial fibrillation with rapid ventricular response: Started patient on multaq therapy at 400 p.o. twice daily to see if patient can be maintained in sinus rhythm. However patient had reverted back to atrial fibrillation therefore have added Ranexa at 500 mg p.o. twice daily. There is good literature available that Ranexa along with multaq may actually maintains sinus rhythm more efficiently. Also recommend, at this point recommend rate control and chronic anticoagulation. Have also stopped Levaquin, since it does cause QTC prolongation and since patient is on antiarrhythmics. May consider switching to another antibiotic such as doxycycline or penicillins as they do not seem to interfere with QTC. Also agree with rate control attempts with diltiazem. Exact duration of atrial fibrillation not clear but could have been paroxysmal and ongoing for last 2 weeks. Patient already on chronic anticoagulation started during this admission. Paroxysmal atrial tachycardia: Possibly related to COPD and this is a common disorder associated with COPD. Cardizem is well-suited for this arrhythmia. Could switch to Cardizem CD 120 mg p.o. daily. Patient will benefit from a event monitor as an outpatient. CHF: This is based on BNP level. Patient may have slight volume overload. Will recommend low-dose diuretics. Possibly right-sided. 2D echo results reviewed. COPD exacerbation: Recommend aggressive therapy with steroids, bronchodilator therapy. Recommend a Xopenex. Tobacco abuse: Patient has been advised to quit smoking. Patient has symptoms indicative of tobacco withdrawal but does not want nicotine patch. Dyslipidemia: Continue statin therapy. Bradycardia: This was noted to be transient. Possibly related to sinus node suppression secondary to atrial fibrillation. However if patient becomes symptomatic may need pacemaker placement. This was explained to the patient. Patient may end up needing prolonged monitoring as an outpatient. 2D echocardiogram results reviewed. - Time Time with patient: Greater than 35 minutes - Significant time spent discussing management plans with patient and her grandson. Also discussed with hospitalist. Also wrote orders for patient to be evaluated at tertiary care center especially CT surgery department at either [facility] or [facility] for follow-up appointment. In the meantime, patient can follow-up with me. I will be happy to arrange a event monitor/ mobile cardiac telemetry monitoring and also other evaluations as an outpatient. Any further evaluation such as transesophageal echocardiogram, possible cardiac cath etc. could be scheduled by the tertiary care center when they see the patient in follow-up. Medications reviewed and adjusted accordingly: Yes
[2018-01-22] MEDS ORDERED: ZOLPIDEM TARTRATE 5 MG TABLET PO PRN (13:40)
--- NOTE | 2018-01-22 14:50 | RADIOLOGY REPORT (SQ) ---
EXAM DESCRIPTION: CHEST 2 VIEWS COMPLETED DATE/TIME: 01/22/2018 2:29 pm REASON FOR STUDY: follow up infiltrate COMPARISON: 01/18/2018 EXAM PARAMETERS: NUMBER OF VIEWS: two views TECHNIQUE: Digital Frontal and Lateral radiographic views of the chest acquired. RADIATION DOSE: NA LIMITATIONS: none FINDINGS: LUNGS AND PLEURA: The lungs are hyperexpanded. No acute infiltrate or effusion. No mass. MEDIASTINUM AND HILAR STRUCTURES: No masses or contour abnormalities. HEART AND VASCULAR STRUCTURES: Heart size is borderline. There is no failure. BONES: No acute findings. HARDWARE: None in the chest. OTHER: No other significant finding. IMPRESSION: Borderline cardiomegaly without failure. Chronic lung changes with no acute pulmonary d isease. TECHNICAL DOCUMENTATION: JOB ID: [id number] [employer]- All Rights Reserved Reading location - IP/workstation name: [email or web address]
[2018-01-22] MEDS: RANOLAZINE 500 MG TAB.SR.12H PO SCH (17:49)
[2018-01-22] MEDS: GABAPENTIN 300 MG CAPSULE PO SCH (21:09)
[2018-01-22] MEDS: ATORVASTATIN CALCIUM 20 MG TABLET PO SCH (21:10)
[2018-01-22] MEDS ORDERED: DILTIAZEM HCL 120 MG CAP.SR.24H PO SCH (22:00)
--- NOTE | 2018-01-23 02:21 | PDOC PROGRESS REPORT ---
Subjective Progress Note for:: 01/22/18 Subjective:: No complaints. Ugo had multiple concerns when was told that had been advised by supervisor [employer] to discahrge patient with follow up with him and cardiothoracic surgeon. Patient had an uneventful episode over night when she reverted to atrial fibrillation with rapid ventricular response. Ugo became increasingly disrespectful and was not allowing for the author to step out of the room to talk both the nurse and supervisor [employer]. He followed up the author to the nurse's station. Nurse was advised to contact patient advocate to talk with ugo but was not immediately available. Talked to Dr Moore at length regarding patient's current regimen and adjustment was made on cardiazem dosing. Patient wasmade aware that she was to stay overnight to follow up response. Review of systems All organ systems evaluated and negative except as in subjective All significant laboratories and diagnostics have been reviewed Reason For Visit: AFLUTTER WITH RVR Physical Exam Vital Signs: Temp Pulse Resp BP Pulse Ox 97.6 F 101 H 15 92/53 L 93 01/23/18 00:02 01/23/18 00:02 01/23/18 00:02 01/23/18 00:02 01/23/18 00:02 Intake & Output 01/21/18 01/22/18 01/23/18 06:59 06:59 06:59 Intake Total 990 700 858 Balance 990 700 858 Weight 52.9 kg 52.8 kg General appearance: PRESENT: cooperative, thin Head exam: PRESENT: atraumatic, normocephalic Eye exam: PRESENT: conjunctiva pink, EOMI, PERRLA Mouth exam: PRESENT: neck supple Neck exam: PRESENT: full ROM. ABSENT: JVD, lymphadenopathy, tenderness Respiratory exam: PRESENT: clear to auscultation tato Cardiovascular exam: PRESENT: irregular rhythm. ABSENT: diastolic murmur, systolic murmur GI/Abdominal exam: PRESENT: normal bowel sounds, soft. ABSENT: tenderness Neurological exam: PRESENT: alert, awake, oriented to person, oriented to place , oriented to time, oriented to situation, CN II-XII grossly intact Psychiatric exam: PRESENT: appropriate affect, normal mood Skin exam: PRESENT: intact, normal color Results Laboratory Results: 01/20/18 06:47 01/20/18 06:47 01/18/18 01/19/18 01/21/18 16:55 05:54 15:01 Troponin I 0.031 NT-Pro-B Natriuret Pep 5110 H 5230 H Impressions: Chest X-Ray 01/22/18 00:00 IMPRESSION: Borderline cardiomegaly without failure. Chronic lung changes with no acute pulmonary disease. Assessment & Plan - Diagnosis (1) Atrial flutter with rapid ventricular response Is this a current diagnosis for this admission?: Yes Plan: To change to longacting cardiazem as per cardiology advise. Also to continue ranexa and to continue multaq. Patient to follow up with [facility] on discharge (2) COPD exacerbation Is this a current diagnosis for this admission?: Yes (3) Congestive heart failure Qualifiers: Heart failure type: right-sided Heart failure chronicity: acute on chronic Qualified Code(s): I50.813 - Acute on chronic right heart failure Is this a current diagnosis for this admission?: Yes Plan: Continue current management (4) Mitral stenosis Qualifiers: Cardiac valve disease etiology: etiology unspecified Qualified Code(s): I05.0 - Rheumatic mitral stenosis Is this a current diagnosis for this admission?: Yes Plan: To be followe d up by cardiothoracic surgeon on discharge (5) Tobacco abuse Is this a current diagnosis for this admission?: Yes Plan: Educated about quitting (6) Pneumonia Is this a current diagnosis for this admission?: No Plan: Consistant with chronic changes (7) Bradycardia Is this a current diagnosis for this admission?: Yes Plan: Will require close follow up by supervisor [employer] - Time Time Spent with patient: 25-34 minutes Anticipated discharge: Home with Homehealth Within: within 24 hours - Inpatient Certification Based on my medical assessment, after consideration of the patient's comorbidities, presenting symptoms, or acuity I expect that the services needed warrant INPATIENT care.: Yes I certify that my determination is in accordance with my understanding of Medicare's requirements for reasonable and necessary INPATIENT services [42 CFR 412.3e].: Yes Medical Necessity: Need Close Monitoring Due to Risk of Patient Decompensation, Need For Continuous Telemetry Monitoring
[2018-01-23] MEDS: RANOLAZINE 500 MG TAB.SR.12H PO SCH ×2 (05:04→17:33)
[2018-01-23] MEDS ORDERED: FLUTICASONE/SALMETEROL DISKUS 500-50 MCG/DOSE IH SCH (10:00)
[2018-01-23] MEDS: DRONEDARONE HYDROCHLORIDE 400 MG TABLET PO SCH (10:08)
[2018-01-23] MEDS: NICOTINE 14 MG/24 HR PATCH.TD24 TD SCH (10:08)
[2018-01-23] MEDS: APIXABAN 5 MG TABLET PO SCH ×2 (10:08→17:32)
[2018-01-23] MEDS: FUROSEMIDE 20 MG TABLET PO SCH ×2 (10:09→17:33)
[2018-01-23] MEDS: ASPIRIN 81 MG TABLET, CHEWABLE PO SCH (10:09)
[2018-01-23 16:40] VITALS: BP 116/68
--- NOTE | 2018-01-23 20:05 | PDOC PROGRESS REPORT ---
Subjective Progress Note for:: 01/23/18 Subjective:: Patient seems to be doing significantly better this morning. Patient noted to be in sinus rhythm. Pt is denying any chest arm or neck discomfort. Patient denying any PND, orthopnea. Patient denied any sustained palpitations, dizziness, syncope, near syncope. Patient denying any fever chills. Patient denying any other significant discomfort. Review of systems: Rest review of systems negative. Telemetry strips reviewed shows intermittent paroxysmal atrial flutter fibrillation. Medications: Medications have been reviewed. Reason For Visit: AFLUTTER WITH RVR Physical Exam Vital Signs: Temp Pulse Resp BP Pulse Ox 97.8 F 71 12 116/68 95 01/23/18 16:37 01/23/18 16:37 01/23/18 16:37 01/23/18 16:37 01/23/18 16:37 Intake & Output 01/22/18 01/23/18 01/24/18 06:59 06:59 06:59 Intake Total 700 1088 118 Balance 700 1088 118 Weight 52.8 kg 52.4 kg Exam: GENERAL: well-nourished and in no acute distress. Alert and oriented x3 HEAD: Atraumatic, normocephalic. EYES: Pupils equal round and reactive to light, extraocular movements intact, sclera anicteric, conjunctiva are normal. ENT: TMs normal, nares patent, oropharynx clear without exudates. Moist mucous membranes. No oral ulcerations or bleeding gums noted NECK: supple without lymphadenopathy. Trachea is central. No cervical or axillary lymphadenopathy noted. Carotids are 2+, JVD WNL LUNGS: Respiration seems nonlabored, no significant accessory muscle action noted. Breath sounds clear to auscultation bilaterally and equal noted. Few scattered wheezes rales or rhonchi noted. No significant dullness noted on percussion. CHEST: Palpation of the chest wall shows no significant chest wall tenderness. No other significant abnormalities noted. HEART: [place] [employer], No PSH, 1/6 DAYANNA aortic area, 1/6 muir systolic murmur mitral area, no rubs, no gallops. ABDOMEN: Soft, no significant tenderness appreciated, normoactive bowel sounds. No guarding, no rebound. No rigidity noted . No masses appreciated. EXTREMITIES: Pedal pulses are 1-2+, no calf tenderness noted. No clubbing or cyanosis. negative pedal edema noted NEUROLOGICAL: Focused neurological exam showed no significant neurologic deficit. Normal speech, no focal weakness appreciated. PSYCH: Normal mood, normal affect. Judgment and insight within normal limits. SKIN: No significant ecchymosis, skin is noted to be warm. MUSCULOSKELETAL EXAM: No significant acute joint swelling noted. Results Laboratory Results: 01/20/18 06:47 01/20/18 06:47 01/18/18 01/19/18 01/21/18 16:55 05:54 15:01 Troponin I 0.031 NT-Pro-B Natriuret Pep 5110 H 5230 H EKG Comments: EKG this morning showed sinus rhythm, normal QTC. Impressions: Chest X-Ray 01/22/18 00:00 IMPRESSION: Borderline cardiomegaly without failure. Chronic lung changes with no acute pulmonary disease. Assessment & Plan - Diagnosis (1) Atrial fibrillation with RVR Is this a current diagnosis for this admission?: Yes (2) Congestive heart failure Qualifiers: Heart failure type: right-sided Heart failure chronicity: acute on chronic Qualified Code(s): I50.813 - Acute on chronic right heart failure Is this a current diagnosis for this admission?: Yes (3) COPD exacerbation Is this a current diagnosis for this admission?: Yes (4) Tobacco abuse Is this a current diagnosis for this admission?: Yes (5) Dyslipidemia Is this a current diagnosis for this admission?: Yes - Notes Notes: Atrial fibrillation with rapid ventricular response: This morning in sinus rhythm. Continue patient on multaq therapy at 400 p.o. twice daily no aily. There is good literature available that Ranexa along with multaq may actually maintains sinus rhythm more efficiently. Also recommend, at this point recommend rate control and chronic anticoagulation. Also continue Ranexa and Cardizem CD at 120 mg p.o. daily. This may need to be increased as tolerated. Paroxysmal atrial tachycardia: Possibly related to COPD and this is a common disorder associated with COPD. Cardizem is well-suited for this arrhythmia. Continue Cardizem CD 120 mg p.o. daily. Patient will benefit from a event monitor as an outpatient. CHF: This is based on BNP level. Continue Lasix at 20 mg p.o. twice daily. COPD exacerbation: Recommend aggressive therapy with steroids, bronchodilator therapy. Recommend a Xopenex. Tobacco abuse: Patient has been advised to quit smoking. Patient has symptoms indicative of tobacco withdrawal but does not want nicotine patch. Dyslipidemia: Continue statin therapy. Bradycardia: This was noted to be transient. Possibly related to sinus node suppression secondary to atrial fibrillation. However if patient becomes symptomatic may need pacemaker placement. This was explained to the patient. Patient patient advised prolonged monitoring as an outpatient. 2D echocardiogram results reviewed. Patient to keep appointment with CT surgery department at [facility]. Will attempt to get electrophysiology consultation at the same time at [facility]. Patient can follow-up with me for general cardiology. - Time Critical Time spent with patient: Greater than 35 minutes - CODE STATUS was discussed, patient remains full code. Surrogate decision-maker unchanged. Multiple medical problems were addressed. More than 50% of the time spent coordinating care, discussing management plans with involved caregivers. Management plans discussed with involved personnels. Medical decision making was of moderate to high complexity, patient's has multiple comorbidities. Medications reviewed and adjusted accordingly: Yes
--- NOTE | 2018-01-23 23:01 | EKG REPORT ---
SEVERITY:- ABNORMAL ECG - SINUS RHYTHM LEFT ATRIAL ABNORMALITY : Confirmed by: Melchor Moore 23-Jan-2018 23:01:10
--- NOTE | 2018-02-18 18:13 | PDOC DISCHARGE SUMMARY ---
General - Admit/Disc Date/PCP Admission Date/Primary Care Provider: 01/18/18 15:48 Discharge Date: 01/24/18 - Discharge Diagnosis (1) Atrial flutter with rapid ventricular response Is this a current diagnosis for this admission?: Yes Summary: Long-acting cardiazem as per cardiology, will need to continue post-discharge. Continue ranexa and to continue multaq post discharge. Patient to follow up with Dr. Moore within 24 hrs of discharge from [facility] (2) Mitral stenosis Is this a current diagnosis for this admission?: Yes Summary: 2D echocardiogram was technically difficult but does suggest at least moderate mitral stenosis. Patient also noted to have moderate mitral regurgitation. The patient will require follow up with a cardiothoracic surgeon post discharge (3) Bradycardia Is this a current diagnosis for this admission?: Yes Summary: Plan to follow up with Dr. Moore post-discharge for continuous heart monitor (4) COPD (chronic obstructive pulmonary disease) Is this a current diagnosis for this admission?: Yes Summary: Patient has a long history of smoking She was educated on the importance of quitting Declined nicotine patch Discharged with a prescription for Advair (5) Congestive heart failure Is this a current diagnosis for this admission?: Yes Summary: As evidence by elevated BNP Continue Lasix 20mg PO BID post discharge (6) Dyslipidemia Is this a current diagnosis for this admission?: Yes Summary: Placed on statin therapy, will continue post discharge (7) Tobacco abuse Is this a current diagnosis for this admission?: Yes Summary: Educated about the importance of quitting. Declined nictoine patch - Additional Information Resuscitation Status: Full Code Discharge Diet: Cardiac Discharge Activity: Activity As Tolerated, Balance Activity w/Rest, Weigh Daily Prescriptions: Apixaban [Eliquis 5 mg Tablet] 5 mg PO BID #60 tablet Aspirin [Aspirin 81 mg Chewable Tablet] 81 mg PO DAILY #30 tab.chew Diltiazem HCl [Cardizem Cd 120 mg Capsule] 120 mg PO QHS #30 cap.sr.24h Dronedarone Hydrochloride [Multaq 400 mg Tablet] 400 mg PO Q12 #60 tablet Fluticasone/Salmeterol [Advair 500-50 Diskus 28 Dose] 1 inh IH Q12H #1 inhaler Home Medications: Atorvastatin Calcium [Lipitor 20 mg Tablet] 20 mg PO QHS 01/18/18 Gabapentin [Neurontin 300 mg Capsule] 300 mg PO DAILY 01/18/18 Apixaban [Eliquis 5 mg Tablet] 5 mg PO BID #60 tablet 01/23/18 Aspirin [Aspirin 81 mg Chewable Tablet] 81 mg PO DAILY #30 tab.chew 01/23/18 Diltiazem HCl [Cardizem Cd 120 mg Capsule] 120 mg PO QHS #30 cap.sr.24h Dronedarone Hydrochloride [Multaq 400 mg Tablet] 400 mg PO Q12 #60 tablet Fluticasone/Salmeterol [Advair 500-50 Diskus 28 Dose] 1 inh IH Q12H #1 inhaler 01/23/18 Furosemide [Lasix 20 mg Tablet] 20 mg PO BID tablet 01/23/18 Ranolazine [Ranexa 500 mg Tab.sr] 500 mg PO Q12 01/31/18 History of Present Illness History of Present Illness: 77-year-old female with a past medical history of hyperlipidemia and facial nerve pain described. Patient states that a couple weeks ago she did started feeling poorly with upper respiratory complaints. States that she may have had the flu, but was not tested. States that she has exposure to a grandchild in the home who was sick recently. Describes coughing up productive yellow sputum. Describes subjective fever and chills, unmeasured temperature. She described nausea without vomiting. Described 2 episodes of diarrhea. States that she does not have a primary care provider and attempted to receive care from an urgent care facility. On presentation to the emergency department patient has noted atrial flutter with RVR, new onset. She was placed on a diltiazem infusion improvement in her rate control. Patient denies a prior history of cardiac disease. Does describe a heart murmur at and a cardiac echo approximately 10 years ago in which she was told she had a leaky valve. Hospital Course Hospital Course: The patient was discharged home with Elinaheed, Meghantaq, ASA, and Gilma. She was instructed to f/u with Dr. Moore for a continuous heart monitor, additionally, she was scheduled to see a cardiothorasic surgeon Physical Exam Vital Signs: Temp Pulse Resp BP Pulse Ox 97.8 F 71 12 116/68 95 01/23/18 16:37 01/23/18 16:37 01/23/18 16:37 01/23/18 16:37 01/23/18 16:37 Results Laboratory Results: 01/20/18 06:47 01/20/18 06:47 01/18/18 01/19/18 01/21/18 16:55 05:54 15:01 Troponin I 0.031 NT-Pro-B Natriuret Pep 5110 H 5230 H Impressions: Chest X-Ray 01/22/18 00:00 IMPRESSION: Borderline cardiomegaly without failure. Chronic lung changes with no acute pulmonary disease. Status: Imported from PACS Qualifiers - * PATIENT BEING DISCHARGED WITH ANY OF THE FOLLOWING DIAGNOSIS: No, Heart Failure HF Pt being discharged on ACEI for LVEF less than 40%?: No Reason(s) for not prescribing ACEI:: Not indicated - per cardiology HF Pt being discharged on ARBS for LVEF less than 40%?: No Reason(s) for not prescribing ARBS:: Not indicated - per cardiology. LVEF > 40% HF Pt with Afib discharged with Warfarin?: No Reason(s) for not prescribing Warfarin:: Not indicated - discharged home on eliquis HF Pt discharged on evidence-based Beta Yair:: No Reason(s) for not prescribing evidence-based Beta Yair:: Medical Contraindication - Patient has history of bradycardia, not recommended per cardiology Plan Time Spent: Less than 30 Minutes
== END 2018-01-23 17:48 | disposition home or self-care (01) | DRG 308 ==
LOC: ER 12:41 → EH 15:48 → 3S 18:39
PROVIDERS: ADMIT Internal Medicine; ATTEND Internal Medicine
PROC: 3E0F73Z Introduction of Anti-inflammatory into Respiratory Tract, Via Natural or Artificial Opening (ICD-10-PCS; principal; 2018-01-19)
DX: I48.0 Paroxysmal atrial fibrillation (principal); J15.6 Pneumonia due to other Gram-negative bacteria; J44.1 Chronic obstructive pulmonary disease with (acute) exacerbation; J44.0 Chronic obstructive pulmonary disease with (acute) lower respiratory infection; I50.813 Acute on chronic right heart failure; I05.0 Rheumatic mitral stenosis; F17.210 Nicotine dependence, cigarettes, uncomplicated; J44.9 Chronic obstructive pulmonary disease, unspecified; E78.5 Hyperlipidemia, unspecified; I51.7 Cardiomegaly; G47.01 Insomnia due to medical condition; R00.1 Bradycardia, unspecified; I34.0 Nonrheumatic mitral (valve) insufficiency; Z90.710 Acquired absence of both cervix and uterus; Z82.3 Family history of stroke; Z82.49 Family history of ischemic heart disease and other diseases of the circulatory system; Z80.0 Family history of malignant neoplasm of digestive organs; Z79.02 Long term (current) use of antithrombotics/antiplatelets
CPT/HCPCS: 36415; 71045; 71046; 80048; 80053; 80061; 80069; 80307; 81001; 82550; 82553; 83036; 83690; 83735; 83880; 84443; 84484; 85025; 85027; 85610; 85730; 93005; 93010; 93306; 96365; 96366; 96375; 96376; 99291; J1644; J1956; J3490

== ENCOUNTER 2018-01-31 08:36 | Inpatient (IN) | payer MEDICARE ==
[2018-01-31] MEDS ORDERED: ASPIRIN 81 MG TABLET, CHEWABLE PO ONE (09:26)
[2018-01-31 09:48] LABS: ABSOLUTE BASOPHILS # (AUTO) 0.1 10^3/uL (0.0-0.2); ABSOLUTE LYMPHOCYTES (AUTO) 0.6 10^3/uL (0.5-4.7); ABSOLUTE MONOCYTES (AUTO) 0.7 10^3/uL (0.1-1.4); ABSOLUTE NEUT (AUTO) 7.1 10^3/uL (1.7-8.2); BASOPHILS % (AUTO) 0.8 % (0-2); EOSINOPHILS % (AUTO) 0.2 % (0-6); HEMOGLOBIN 12.1 g/dL (12.0-15.5); LYMPHOCYTES % (AUTO) 7.1 % (13-45); MEAN CORPUSCULAR HEMOGLOBIN 31.1 pg (27.0-33.4); MEAN CORPUSCULAR HGB CONC 33.6 g/dL (32.0-36.0); MEAN CORPUSCULAR VOLUME 92 fl (80-97); MONOCYTES % (AUTO) 8.7 % (3-13); PLATELET COUNT 265 10^3/uL (150-450); SEGMENTED NEUTROPHILS % (AUTO) 83.2 % (42-78); TOTAL CELLS COUNTED % (AUTO) 100 %; WHITE BLOOD COUNT 8.5 10^3/uL (4.0-10.5)
--- NOTE | 2018-01-31 10:02 | ER Document Report ---
ED General - General Chief Complaint: High Blood Pressure Stated Complaint: HIGH BLOOD PRESSURE ISSUE Time Seen by Provider: 01/31/18 09:23 Mode of Arrival: Ambulatory Information source: [facility], [facility] Records Notes: 77-year-old female recent diagnosis of atrial fibrillation on Eliquis and Cardizem presents with complaints of shortness of breath high blood pressure. Patient notes that her blood pressure was elevated 160s over 110 yesterday, when she presented patient also noted that she was having some chest tightness associated with it. Patient admits to shortness of breath upon ambulation, she was recently admitted to the hospital for 5 days and discharged. Patient did follow-up with Dr. Moore and had heart monitor performed TRAVEL OUTSIDE OF THE [place] IN LAST 30 DAYS: No - HPI Onset: Last week Onset/Duration: Persistent, Waxing and waning Quality of pain: Achy Severity: Mild Pain Level: 1 Associated symptoms: Chest pain, Shortness of breath Exacerbated by: Walking Relieved by: Denies Similar symptoms previously: Yes Recently seen / treated by doctor: Yes - Related Data Allergies/Adverse Reactions: No Known Allergies Allergy (Unverified 01/18/18 12:50) Past Medical History - Social History Smoking Status: Former Smoker Cigarette use (# per day): No Chew tobacco use (# tins/day): No Smoking Education Provided: No Frequency of alcohol use: None Drug Abuse: None Family History: Reviewed & Not Pertinent Patient has suicidal ideation: No Patient has homicidal ideation: No - Past Medical History Cardiac Medical History: Reports: Hx Hypercholesterolemia, Hx Hypertension, Hx Heart Murmur - Story of heart murmur, told that she had a leaky valve. Renal/ Medical History: Denies: Hx Peritoneal Dialysis Past Surgical History: Reports: Hx Hysterectomy Review of Systems - Review of Systems Notes: REVIEW OF SYSTEMS: CONSTITUTIONAL : Denies fever, chills, or sweats. Denies recent illness. Admits to high blood pressure EENT: Denies eye, ear, throat, or mouth pain or symptoms. Denies nasal or sinus congestion or discharge. Denies throat, tongue, or mouth swelling or difficulty swallowing. CARDIOVASCULAR: Denies chest pain. Denies palpitations or racing or irregular heart beat. Denies ankle edema. RESPIRATORY: Admits to shortness of breath GASTROINTESTINAL: Denies abdominal pain or distention. Denies nausea, vomiting , or diarrhea. Denies blood in vomitus, stools, or per rectum. Denies black, tarry stools. Denies constipation. GENITOURINARY: Denies difficulty urinating, painful urination, burning, frequency, blood in urine, or discharge. FEMALE GENITOURINARY: Denies vaginal bleeding, heavy or abnormal periods, irregular periods. Denies vaginal discharge or odor. MUSCULOSKELETAL: Denies back or neck pain or stiffness. Denies joint pain or swelling. SKIN: Denies rash, lesions or sores. HEMATOLOGIC : Denies easy bruising or bleeding. LYMPHATIC: Denies swollen, enlarged glands. NEUROLOGICAL: Denies confusion or altered mental status. Denies passing out or loss of consciousness. Denies dizziness or lightheadedness. Denies headache. Denies weakness or paralysis or loss of use of either side. Denies problems with gait or speech. Denies sensory loss, numbness, or tingling. Denies seizures. PSYCHIATRIC: Denies anxiety or stress. Denies depression, suicidal ideation, or homicidal ideation. ALL OTHER SYSTEMS REVIEWED AND NEGATIVE. PHYSICAL EXAMINATION: GENERAL: Elderly female no distress at rest however becomes hypoxic upon ambulation HEAD: Atraumatic, normocephalic. EYES: Pupils equal round and reactive to light, extraocular movements intact, conjunctiva are normal. ENT: Nares patent, oropharynx clear without exudates. Moist mucous membranes. NECK: Normal range of motion, supple without lymphadenopathy LUNGS: Crackles at the left base HEART: Regular rate and rhythm without murmurs ABDOMEN: Soft, nontender, nondistended abdomen. No guarding, no rebound. No masses appreciated. Female : deferred Musculoskeletal: Normal range of motion, no pitting or edema. No cyanosis. NEUROLOGICAL: Cranial nerves grossly intact. Normal speech, normal gait. Normal sensory, motor exams PSYCH: Normal mood, normal affect. SKIN: Warm, Dry, normal turgor, no rashes or lesions noted. Dictation was performed using [employer] voice recognition software Physical Exam - Vital signs Vitals: Pulse Resp BP Pulse Ox 55 L 20 142/55 H 98 01/31/18 08:56 01/31/18 08:56 01/31/18 08:56 01/31/18 08:56 Course - Re-evaluation Re-evalutation: 01/31/18 10:22 Patient's evaluation and concerns initially were for high blood pressure however when I evaluate the patient myself I note that she is having respiratory distress, she is at base not on any oxygen, was discharged from the hospital without oxygen, when I ambulated her around the emergency department she immediately desatted to 83% walking around just wants. Patient was extremely short of breath became tachycardic tachypneic. She was placed on 3 L nasal cannula and O2 sats improved to 96% at rest. Chest x-ray is concerning for small effusion otherwise no significant abnormality, I will readmit the patient to the hospitalist service due to the significant hypoxemia - Vital Signs Vital signs: Temp Pulse Resp BP Pulse Ox 55 L 20 142/55 H 94 01/31/18 08:56 01/31/18 08:56 01/31/18 08:56 01/31/18 09:30 - Laboratory Result Diagrams: 01/31/18 09:33 01/31/18 09:33 Laboratory results interpreted by me: 01/31/18 01/31/18 09:33 09:33 Seg Neutrophils % 83.2 H Lymphocytes % 7.1 L Carbon Dioxide 32 H Est GFR ( Amer) 58 L Est GFR (Non-Af Amer) 48 L Glucose 158 H Creatine Kinase 26 L Total Protein 6.1 L Albumin 3.3 L - Diagnostic Test Radiology reviewed: Image reviewed - chest xray 2 view notes small effusion, Reports reviewed Critical Care Note - Critical Care Note Total time excluding time spent on procedures (mins): 33 Comments: 33 minutes of critical care time spent in direct contact evaluating and reevaluating the patient, treating symptoms, reviewing labs and studies and speaking with family and consultants excluding any procedures Discharge - Discharge Clinical Impression: COPD exacerbation, Hypoxemia Afib Qualifiers: Atrial fibrillation type: unspecified Qualified Code(s): I48.91 - Unspecified atrial fibrillation Congestive heart failure Qualifiers: Heart failure type: systolic Heart failure chronicity: acute Qualified Code(s) : I50.21 - Acute systolic (congestive) heart failure Condition: Fair Disposition: ADMITTED INPATIENT Admitting Provider: Hospitalist Unit Admitted: Telemetry Referrals: JOMAR CLEMONS FNP-C [Primary Care Provider] - Follow up as needed
--- NOTE | 2018-01-31 10:02 | RADIOLOGY REPORT (SQ) ---
EXAM DESCRIPTION: CHEST SINGLE VIEW COMPLETED DATE/TIME: 01/31/2018 9:46 am REASON FOR STUDY: chest pain COMPARISON: Chest films 01/22/2018, 01/18/2018 EXAM PARAMETERS: NUMBER OF VIEWS: One view. TECHNIQUE: Single frontal radiographic view of the chest acquired. RADIATION DOSE: NA LIMITATIONS: None. FINDINGS: LUNGS AND PLEURA: Trace bilateral pleural effusions. There are Nga lines at both bases likely indicating mild interstitial edema. In the left retrocardiac region, there are air bronchograms from consolidation atelectasis versus pne umonia. No pneumothorax. MEDIASTINUM AND HILAR STRUCTURES: No masses. Contour normal. HEART AND VASCULAR STRUCTURES: Moderate cardiomegaly BONES: Osteoporotic HARDWARE: None in the chest. OTHER: No other significant finding. IMPRESSION: Moderate cardiomegaly with trace pleural effusions and Nga lines. Findings likely in dicate fluid overload or congestive failure. There retrocardiac air bronchograms at the left posterior lung base, atelectasis versus pneumonia. TECHNICAL DOCUMENTATION: JOB ID: [id number] [employer]- All Rights Reserved Reading location - IP/workstation name: [facility]-RR
[2018-01-31 10:04] LABS: ALANINE AMINOTRANSFERASE 37 U/L (9-52); ALBUMIN 3.3 g/dL (3.5-5.0); ALKALINE PHOSPHATASE 50 U/L (38-126); ANION GAP 10 (5-19); ASPARTATE AMINO TRANSFERASE 28 U/L (14-36); BILIRUBIN,DIRECT 0.4 mg/dL (0.0-0.4); BILIRUBIN,TOTAL 0.7 mg/dL (0.2-1.3); BLOOD UREA NITROGEN 18 mg/dL (7-20); CALCIUM 8.9 mg/dL (8.4-10.2); CARBON DIOXIDE 32 mmol/L (22-30); CHLORIDE 99 mmol/L (98-107); CREATINE KINASE 26 U/L (30-135); GLUCOSE 158 mg/dL (75-110); SODIUM 140.8 mmol/L (137-145); TOTAL PROTEIN 6.1 g/dL (6.3-8.2)
[2018-01-31 10:14] LABS: CREATINE KINASE MB 0.53 ng/mL (<4.55); TROPONIN I < 0.012 ng/mL
--- NOTE | 2018-01-31 11:34 | RADIOLOGY REPORT (SQ) ---
EXAM DESCRIPTION: CTA CHEST COMPLETED DATE/TIME: 01/31/2018 10:55 am REASON FOR STUDY: hypoxemia afib COMPARISON: Chest x-ray dated 01/31/2018 TECHNIQUE: CT scan of the chest performed using helical scanning technique with dynamic intravenous contrast injection. Images reviewed with lung, soft tissue and bone windows. Reconstructed coronal and sagittal MPR images reviewed. Additional 3 dimensional post-processing performed to develop Maximal Intensity Projection images (AR P). All images stored on PACS. All CT scanners at this facility use dose modulation, iterative reconstruction, and/or weight based d osing when appropriate to reduce radiation dose to as low as reasonably achievable (ALARA). [facility]: Dose Right [facility]: CareDose [facility]: Dose Right [facility]: Teradose 4D [facility]: Smart Job App Plus CONTRAST TYPE AND DOSE: contrast/concentration: Isovue 370.00 mg/ml; Total Contrast Delivered: 62.0 ml; Total Saline Delivered: 110.0 ml Contrast bolus optimized for the pulmonary arteries. Not diagnostic for the aorta. RENAL FUNCTION: Creatinine 1.1 RADIATION DOSE: CT Rad equipment meets quality standard of care and radiation dose reduction techniq ues were employed. CTDIvol: 13.2 - 14.3 mGy. DLP: 501 mGy-cm. . LIMITATIONS: None. FINDINGS: LUNGS AND PLEURA: Moderate size bilateral pleural effusions are identified right greater t madrigal left. There is some minimal associated airspace consolidation in the lung bases most consistent with atelectatic changes. Prominent interstitial changes are identified most consistent with interst itial edema. Underlying emphysematous changes are identified. AORTA AND GREAT VESSELS: No aneurysm. Contrast bolus not optimized for the aorta. HEART: No pericardial effusion. No significant coronary artery calcifications. PULMONARY ARTERIES: No emboli visualized in the main pulmonary arteries or the segmental branches. HILAR AND MEDIASTINAL STRUCTURES: No identified masses or abnormal nodes. HARDWARE: None in the chest. UPPER ABDOMEN: No significant findings. Limited exam. THYROID AND OTHER SOFT TISSUES: No masses. No adenopathy. BONES: Thoracic scoliosis convex to the right is identified. 3D MIPS: Confirm above findings. OTHER: No other significant finding. IMPRESSION: No evidence for pulmonary embolic disease. Moderate size bilateral pleural effusions ar e identified right greater than left. Minimal associated airspace consolidation is identified in the lung bases most consistent with atelectatic changes. Prominent interstitial changes are identified most consistent with interstitial edema. Underlying emphysematous changes are identified. Other fin dings as noted above COMMENT: Quality ID # [id number]: Final reports with documentation of one or more dose reduction techniques (e.g., Automated exposure control, adjustment of the mA and/or kV according to patient size, use of iterative reconstruction technique) TECHNICAL DOCUMENTATION: JOB ID: [id number] [employer]- All Rights Reserved Reading location - IP/workstation name: [email or web address]
--- NOTE | 2018-01-31 13:56 | EKG REPORT ---
SEVERITY:- ABNORMAL ECG - SINUS RHYTHM LEFT ATRIAL ABNORMALITY NONSPECIFIC T ABNORMALITIES, ANT-LAT LEADS : Confirmed by: Wayne Herrera MD 31-Jan-2018 13:56:23
--- NOTE | 2018-01-31 19:50 | PDOC H&P ---
History of Present Illness Admission Date/PCP: 01/31/18 10:41 JANA GOMEZ-Anette Patient complains of: Dyspnea on exertion, shortness of breath History of Present Illness: JAMES BRINK is a 77 year old female history of COPD, recently diagnosed A. fib treated with Cardizem and Multaq, sees Dr. Moore in clinic. She was last diagnosed about a week ago. Echo at that time (01/21/18) revealed moderate mitral stenosis, but severe MS could not be ruled out. Patient also discharged with Lasix and Ranexa. She had event monitoring done with Dr. Moore as outpatient and is awaiting result. She now presents with complaint of shortness of breath and dyspnea on exertion. She feels weak sometimes dizzy with minimal exertion. She has intermittent lower extremity swelling. Evaluation in the ED significant for chest CT revealing no pulmonary embolism, however there is moderate bilateral pleural effusions worse on the right. Patient referred for admission for further evaluation and management. Past Medical History Cardiac Medical History: Reports: Hyperlipidema, Hypertension, Heart Murmur - Story of heart murmur, told that she had a leaky valve. Psychiatric Medical History: Denies: Depression Past Surgical History Past Surgical History: Reports: Hysterectomy Social History Smoking Status: Former Smoker Number of Years Smokin Frequency of Alcohol Use: None Hx Recreational Drug Use: No Drugs: None Hx Prescription Drug Abuse: No - Advance Directive Resuscitation Status: Full Code Family History Family History: Reviewed & Not Pertinent Parental Family History Reviewed: Yes Children Family History Reviewed: Yes Sibling(s) Family History Reviewed.: Yes Medication/Allergy Home Medications: Atorvastatin Calcium [Lipitor 20 mg Tablet] 20 mg PO QHS 01/18/18 Gabapentin [Neurontin 300 mg Capsule] 300 mg PO DAILY 01/18/18 Apixaban [Eliquis 5 mg Tablet] 5 mg PO BID #60 tablet 01/23/18 Aspirin [Aspirin 81 mg Chewable Tablet] 81 mg PO DAILY #30 tab.chew 01/23/18 Diltiazem HCl [Cardizem Cd 120 mg Capsule] 120 mg PO QHS #30 cap.sr.24h Dronedarone Hydrochloride [Multaq 400 mg Tablet] 400 mg PO Q12 #60 tablet Fluticasone/Salmeterol [Advair 500-50 Diskus 28 Dose] 1 inh IH Q12H #1 inhaler 01/23/18 Furosemide [Lasix 20 mg Tablet] 20 mg PO BID tablet 01/23/18 Ranolazine [Ranexa 500 mg Tab.sr] 500 mg PO Q12 01/31/18 Allergies/Adverse Reactions: No Known Allergies Allergy (Unverified 01/18/18 12:50) Review of Systems Review of Systems: CONSTITUTIONAL : Fever, chills -- No; unexpalined fatigue -- No EENT: Denies eye, ear, throat, or mouth pain or symptoms. Denies nasal or sinus congestion or discharge. Denies throat, tongue, or mouth swelling or difficulty swallowing. CARDIOVASCULAR: Denies chest pain. RESPIRATORY: Has dry cough, has shortness of breath. GASTROINTESTINAL: Denies abdominal pain or distention. Denies nausea, vomiting , or diarrhea. No rectal bleeding. GENITOURINARY: Urinary symptoms -- no. MUSCULOSKELETAL: No acute weakness SKIN: Denies rash, lesions or sores. HEMATOLOGIC : Denies easy bruising or bleeding. LYMPHATIC: Denies swollen, enlarged glands. NEUROLOGICAL: New weakness, headaches, slured speach - No PSYCHIATRIC: Changes anxiety or stress, depression, suicidal ideation, or homicidal ideation -- No ALL OTHER SYSTEMS REVIEWED AND NEGATIVE except as in HPI. Physical Exam Vital Signs: Temp Pulse Resp BP Pulse Ox 97.4 F 55 L 20 130/63 H 94 01/31/18 15:01 01/31/18 15:45 01/31/18 15:01 01/31/18 15:01 01/31/18 15:01 Intake & Output 01/30/18 01/31/18 02/01/18 06:59 06:59 06:59 Intake Total 203 Balance 203 Weight 53 kg GENERAL: Well-developed, no acute distress HEENT: Normocephalic/atraumatic NECK supple, no JVD CARDIOVASCULAR: Irregularly irregular, 1/6 systolic murmur, no gallop or rub LUNGS: Decreased breath sounds with crackles bases bilaterally, occasional wheezing bilaterally ABDOMEN: Soft, NT, NL bowel sounds EXTREMITIES: 1+ lower extremity edema, no clubbing, cyanosis NEUROLOGICAL: Alert, oriented x 3, nonfocal Results Laboratory Results: 01/31/18 01/31/18 09:33 09:33 Seg Neutrophils % 83.2 H Lymphocytes % 7.1 L Carbon Dioxide 32 H Est GFR ( Amer) 58 L Est GFR (Non-Af Amer) 48 L Glucose 158 H Creatine Kinase 26 L Total Protein 6.1 L Albumin 3.3 L Impressions: Chest X-Ray 01/31/18 09:26 IMPRESSION: Moderate cardiomegaly with trace pleural effusions and Nga lines. Findings likely indicate fluid overload or congestive failure. There retrocardiac air bronchograms at the left posterior lung base, atelectasis versus pneumonia. Chest/Abdomen CTA 01/31/18 10:23 IMPRESSION: No evidence for pulmonary embolic disease. Moderate size bilateral pleural effusions are identified right greater than left. Minimal associated airspace consolidation is identified in the lung bases most consistent with atelectatic changes. Prominent interstitial changes are identified most consistent with interstitial edema. Underlying emphysematous changes are identified. Other findings as noted above Assessment & Plan - Diagnosis (1) Pleural effusion Is this a current diagnosis for this admission?: Yes Plan: This is likely secondary to CHF as bilateral. Discussed with Dr. Moore of cardiology who will evaluate patient. -Patient on Lasix 20 g p.o. twice daily as outpatient. Will treat with Lasix 40 mg IV twice daily for now. (2) Afib Qualifiers: Atrial fibrillation type: unspecified Qualified Code(s): I48.91 - Unspecified atrial fibrillation Is this a current diagnosis for this admission?: Yes Plan: Currently rate controlled. Continue apixaban anticoagulation. Also continue Cardizem, Multaq. (3) COPD exacerbation Is this a current diagnosis for this admission?: Yes Plan: This may be contributory to her dyspnea. Will treat with prednisone 40 mg daily for now. Nebulizers as needed. (4) Congestive heart failure Qualifiers: Heart failure type: diastolic Heart failure chronicity: acute Qualified Code(s): I50.31 - Acute diastolic (congestive) heart failure Is this a current diagnosis for this admission?: Yes Plan: This may be diastolic secondary to valvular heart disease. Dr. Moore of cardiology to see. Lasix as in pleural effusion. (5) Mitral stenosis Qualifiers: Cardiac valve disease etiology: etiology unspecified Qualified Code(s): I05.0 - Rheumatic mitral stenosis Is this a current diagnosis for this admission?: Yes Plan: Cardiology follow-up. This is being worked up as outpatient for possible surgery. (6) History of tobacco use disorder Is this a current diagnosis for this admission?: Yes Plan: Patient states stopped smoking after last admission about a week ago. Encouraged to stay quit.
[2018-01-31] MEDS ORDERED: IPRATROPIUM/ALBUTEROL 0.5-2.5 MG/3 ML AMPUL NEB PRN (19:58)
--- NOTE | 2018-01-31 20:02 | PDOC TRANSFER SUMMARY ---
General Admission Date/PCP: 01/31/18 10:41 IDA GOMEZ Resuscitation Status: Full Code - Transfer Diagnosis (1) Pleural effusion Is this a current diagnosis for this admission?: Yes (2) Afib Is this a current diagnosis for this admission?: Yes (3) COPD exacerbation Is this a current diagnosis for this admission?: Yes (4) Congestive heart failure Is this a current diagnosis for this admission?: Yes (5) Mitral stenosis Is this a current diagnosis for this admission?: Yes (6) History of tobacco use disorder Is this a current diagnosis for this admission?: Yes - Transfer Medications Home Medications: Atorvastatin Calcium [Lipitor 20 mg Tablet] 20 mg PO QHS 01/18/18 Gabapentin [Neurontin 300 mg Capsule] 300 mg PO DAILY 01/18/18 Ranolazine [Ranexa 500 mg Tab.sr] 500 mg PO Q12 01/31/18 Transfer Medications: Current Medications Apixaban (Eliquis 5 Mg Tablet) 5 mg PO Q12 ALISSA Stop: 03/02/18 21:59 Aspirin (Aspirin 81 Mg Chewable Tablet) 81 mg PO DAILY ALISSA Stop: 03/03/18 09:59 Atorvastatin Calcium (Lipitor 20 Mg Tablet) 20 mg PO QHS ALISSA Stop: 03/02/18 21:59 Diltiazem HCl (Cardizem Cd 120 Mg Capsule) 120 mg PO QHS ALISSA Stop: 03/02/18 21:59 Dronedarone (Multaq 400 Mg Tablet) 400 mg PO Q12 ALISSA Stop: 03/02/18 21:59 Furosemide (Lasix Inj/Pf 40 Mg/4 Ml Sdv) 40 mg IV Q12 ALISSA Stop: 03/02/18 21:59 Gabapentin (Neurontin 300 Mg Capsule) 300 mg PO DAILY ALISSA Stop: 03/03/18 09:59 Ranolazine (Ranexa 500 Mg Tab.Sr) 500 mg PO Q12 ALISSA Stop: 03/02/18 21:59 Fluticasone/Salmeterol (Advair 500-50 Diskus 14 Dose/Diskus) 1 inh IH Q12 ALISSA Stop: 03/02/18 21:59 - Allergies Allergies/Adverse Reactions: No Known Allergies Allergy (Unverified 01/18/18 12:50) Hospital Course Hospital Course: JAMES BRINK is a 77 year old female history of COPD, recently diagnosed A. fib treated with Cardizem and Multaq, sees Dr. Moore in clinic. She was last diagnosed about a week ago. Echo at that time (01/21/18) revealed moderate mitral stenosis, but severe MS could not be ruled out. Patient also discharged with Lasix and Ranexa. She had event monitoring done with Dr. Moore as outpatient and is awaiting result. She now presents with complaint of shortness of breath and dyspnea on exertion. She feels weak sometimes dizzy with minimal exertion. She has intermittent lower extremity swelling. Evaluation in the ED significant for chest CT revealing no pulmonary embolism, however there is moderate bilateral pleural effusions worse on the right. Patient referred for admission for further evaluation and management. Patient was admitted and started on Lasix diuresis. Her cardiac medications were continued. She was also treated with O2 as needed. She was evaluated by Dr. Moore of cardiology who recommended transfer to a tertiary center for further evaluation. He stated CHF likely from mitral stenosis. He stated patient will need EVELYN, possible cardiac cath and/or pacemaker. Patient agreeable to transfer. Physical Exam Vital Signs: Temp Pulse Resp BP Pulse Ox 97.4 F 55 L 20 130/63 H 94 01/31/18 15:01 01/31/18 15:45 01/31/18 15:01 01/31/18 15:01 01/31/18 15:01 Intake & Output 01/30/18 01/31/18 02/01/18 06:59 06:59 06:59 Intake Total 203 Balance 203 Weight 53 kg GENERAL: Well-developed, no acute distress HEENT: Normocephalic/atraumatic NECK supple, no JVD CARDIOVASCULAR: Irregularly irregular, 1/6 systolic murmur, no gallop or rub LUNGS: Decreased breath sounds with crackles bases bilaterally, occasional wheezing bilaterally ABDOMEN: Soft, NT, NL bowel sounds EXTREMITIES: 1+ lower extremity edema, no clubbing, cyanosis NEUROLOGICAL: Alert, oriented x 3, nonfocal Results Impressions: Chest X-Ray 01/31/18 09:26 IMPRESSION: Moderate cardiomegaly with trace pleural effusions and Nga lines. Findings likely indicate fluid overload or congestive failure. There retrocardiac air bronchograms at the left posterior lung base, atelectasis versus pneumonia. Chest/Abdomen CTA 04/12/18 10:23 IMPRESSION: No evidence for pulmonary embolic disease. Moderate size bilateral pleural effusions are identified right greater than left. Minimal associated airspace consolidation is identified in the lung bases most consistent with atelectatic changes. Prominent interstitial changes are identified most consistent with interstitial edema. Underlying emphysematous changes are identified. Other findings as noted above
--- NOTE | 2018-01-31 20:25 | PDOC CONSULTATION ---
Consultation Consult Date: 01/31/18 Attending physician:: KOMAL NAZARIO Consult reason:: CHF History of Present Illness Admission Date/PCP: 01/31/18 10:41 IDA GOMEZ Patient complains of: Shortness of breath History of Present Illness: JAMES BRINK is a 77 year old female Past Medical History Cardiac Medical History: Reports: Hyperlipidema, Hypertension, Heart Murmur - Story of heart murmur, told that she had a leaky valve. Psychiatric Medical History: Denies: Depression Past Surgical History Past Surgical History: Reports: Hysterectomy Social History Information Source: Patient Smoking Status: Former Smoker Number of Years Smokin Frequency of Alcohol Use: None Hx Recreational Drug Use: No Drugs: None Hx Prescription Drug Abuse: No - Advance Directive Resuscitation Status: Full Code Family History Family History: Reviewed & Not Pertinent Parental Family History Reviewed: Yes Children Family History Reviewed: Yes Sibling(s) Family History Reviewed.: Yes Medication/Allergy Home Medications: Atorvastatin Calcium [Lipitor 20 mg Tablet] 20 mg PO QHS 01/18/18 Gabapentin [Neurontin 300 mg Capsule] 300 mg PO DAILY 01/18/18 Apixaban [Eliquis 5 mg Tablet] 5 mg PO BID #60 tablet 01/23/18 Aspirin [Aspirin 81 mg Chewable Tablet] 81 mg PO DAILY #30 tab.chew 01/23/18 Diltiazem HCl [Cardizem Cd 120 mg Capsule] 120 mg PO QHS #30 cap.sr.24h Dronedarone Hydrochloride [Multaq 400 mg Tablet] 400 mg PO Q12 #60 tablet Fluticasone/Salmeterol [Advair 500-50 Diskus 28 Dose] 1 inh IH Q12H #1 inhaler 01/23/18 Furosemide [Lasix 20 mg Tablet] 20 mg PO BID tablet 01/23/18 Ranolazine [Ranexa 500 mg Tab.sr] 500 mg PO Q12 01/31/18 Allergies/Adverse Reactions: No Known Allergies Allergy (Unverified 01/18/18 12:50) Review of Systems Review of Systems: Please see history of present illness and past medical history as wall. Constitutional: No fever or chills reported. Head : No recent chronic headaches, recent head injury. Eyes: No recent eye pain, diplopia, redness, discharge, acute visual changes. Ears: No recent chronic ear pain, acute hearing loss, ear discharge. Oral cavity: No recent ulcerations, bleeding, oral cavity discomfort. Neck: No recent acute neck pain reported. Hematologic: No recent easy bruising or bleeding or hematologic malignancy reported. Lymphatic: No recent lymphatic malignancy, chronic lymphadenopathy reported yet Cardiovascular system review: See history of present illness. Respiratory system review: Mild cough but no hemoptysis, blood clots in the lungs reported. Progressive worsening shortness of breath on exertion Gastrointestinal system review: Negative for any recent acute or chronic abdominal pain, hematemesis, melena, recent change in bowel habits. Genitourinary system review: No recent acute or chronic hematuria, flank pain, UTI etc. reported. Skin system review: Negative for any recent abnormal bruising, no rash, no pruritus reported. Neurologic: No prior history of strokes, mini strokes, seizure disorder. Psychologic: No history of major psychosis or major depression reported. Musculoskeletal: Minor aches and pains reported. No acute joint swelling reported. Endocrine: No recent polyuria, polydipsia, recent heat or cold intolerance. Physical Exam Vital Signs: Temp Pulse Resp BP Pulse Ox 97.7 F 45 L 16 148/66 H 98 01/31/18 19:31 01/31/18 19:31 01/31/18 19:31 01/31/18 19:31 01/31/18 19:31 Intake & Output 01/30/18 01/31/18 02/01/18 06:59 06:59 06:59 Intake Total 203 Balance 203 Weight 53 kg Exam: GENERAL: well-nourished and in no acute distress. Alert and oriented x3 HEAD: Atraumatic, normocephalic. EYES: Pupils equal round and reactive to light, extraocular movements intact, sclera anicteric, conjunctiva are normal. ENT: TMs normal, nares patent, oropharynx clear without exudates. Moist mucous membranes. No oral ulcerations or bleeding gums noted NECK: supple without lymphadenopathy. Trachea is central. No cervical or axillary lymphadenopathy noted. Carotids are 2+, JVD WNL LUNGS: Respiration seems nonlabored, no significant accessory muscle action noted. Bibasilar fine crackles and mild dullness noted. CHEST: Palpation of the chest wall shows no significant chest wall tenderness. No other significant abnormalities noted. 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 1/6 early diastolic murmur noted mitral area. ABDOMEN: Soft, no significant tenderness appreciated, normoactive bowel sounds. No guarding, no rebound. No rigidity noted . No masses appreciated. EXTREMITIES: Pedal pulses are 1-2+, no calf tenderness noted. No clubbing or cyanosis. negative pedal edema noted NEUROLOGICAL: Focused neurological exam showed no significant neurologic deficit. Normal speech, no focal weakness appreciated. PSYCH: Normal mood, normal affect. Judgment and insight within normal limits. SKIN: No significant ecchymosis, skin is noted to be warm. MUSCULOSKELETAL EXAM: No significant acute joint swelling noted. Results EKG Comments: Sinus rhythm, with mild sinus bradycardia, no acute ST-T wave changes are noted. Impressions: Chest X-Ray 01/31/18 09:26 IMPRESSION: Moderate cardiomegaly with trace pleural effusions and Nga lines. Findings likely indicate fluid overload or congestive failure. There retrocardiac air bronchograms at the left posterior lung base, atelectasis versus pneumonia. Chest/Abdomen CTA 01/31/18 10:23 IMPRESSION: No evidence for pulmonary embolic disease. Moderate size bilateral pleural effusions are identified right greater than left. Minimal associated airspace consolidation is identified in the lung bases most consistent with atelectatic changes. Prominent interstitial changes are identified most consistent with interstitial edema. Underlying emphysematous changes are identified. Other findings as noted above Assessment & Plan - Diagnosis (1) Congestive heart failure Qualifiers: Heart failure type: diastolic Heart failure chronicity: acute Qualified Code(s): I50.31 - Acute diastolic (congestive) heart failure Is this a current diagnosis for this admission?: Yes (2) COPD (chronic obstructive pulmonary disease) Qualifiers: Emphysema type: unspecified Is this a current diagnosis for this admission?: Yes (3) Bradycardia Is this a current diagnosis for this admission?: Yes (4) Dyslipidemia Is this a current diagnosis for this admission?: Yes (5) Mitral regurgitation Qualifiers: Cardiac valve disease etiology: etiology unspecified Qualified Code(s): I34.0 - Nonrheumatic mitral (valve) insufficiency Is this a current diagnosis for this admission?: Yes (6) Mitral stenosis Qualifiers: Cardiac valve disease etiology: etiology unspecified Qualified Code(s): I05.0 - Rheumatic mitral stenosis Is this a current diagnosis for this admission?: Yes - Notes Notes: Patient noted to be in CHF. Agree with IV Lasix at 40 mg p.o. twice daily. Patient has recurrent CHF most likely related to his severe mitral stenosis. In addition patient also noted to have some tachycardia, bradycardia episode based on previous telemetry monitoring. At this point, patient and her grandson who is making medical decision for the patient, prefers transfer to tertiary care which is not unreasonable since I feel that patient will need transesophageal echocardiogram, electrophysiological consultation, possible CT surgery consultation etc. Patient may also need pulmonary evaluation. Overall prognosis is guarded. Case discussed with Dr. Coleman, hospitalist at [facility]. He will be discussing this with beer cooler and the beer cooler will give me a call. 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 [id number] - Time Time Spent: 30 to 50 Minutes - CODE STATUS was discussed, patient remains full code. Surrogate decision-maker patient's grandson. Multiple medical problems were addressed. More than 50% of the time spent coordinating care, discussing management plans with involved caregivers. Management plans discussed with involved personnels. Medical decision making was of moderate to high complexity , patient's has multiple comorbidities. Medications reviewed and adjusted accordingly: Yes
[2018-01-31] MEDS ORDERED: PREDNISONE 20 MG TABLET PO ONE (21:00)
[2018-01-31] MEDS: FUROSEMIDE INJ/PF 40 MG/4 ML SDV IV SCH (21:29)
[2018-01-31] MEDS: RANOLAZINE 500 MG TAB.SR.12H PO SCH (21:30)
[2018-01-31] MEDS: FLUTICASONE/SALMETEROL DISKUS 500-50 MCG/DOSE IH SCH (21:30)
[2018-01-31] MEDS: APIXABAN 5 MG TABLET PO SCH (21:30)
[2018-01-31] MEDS: DRONEDARONE HYDROCHLORIDE 400 MG TABLET PO SCH (21:39)
[2018-01-31] MEDS ORDERED: DILTIAZEM HCL 120 MG CAP.SR.24H PO SCH (22:00)
[2018-01-31] MEDS ORDERED: ATORVASTATIN CALCIUM 20 MG TABLET PO SCH (22:00)
[2018-02-01 07:36] LABS: ABSOLUTE LYMPHOCYTES (AUTO) 0.3 10^3/uL (0.5-4.7); ABSOLUTE MONOCYTES (AUTO) 0.1 10^3/uL (0.1-1.4); ABSOLUTE NEUT (AUTO) 5.7 10^3/uL (1.7-8.2); BASOPHILS % (AUTO) 0.4 % (0-2); HEMATOCRIT 37.5 % (36.0-47.0); HEMOGLOBIN 12.6 g/dL (12.0-15.5); LYMPHOCYTES % (AUTO) 5.3 % (13-45); MEAN CORPUSCULAR HGB CONC 33.5 g/dL (32.0-36.0); MEAN CORPUSCULAR VOLUME 92 fl (80-97); MONOCYTES % (AUTO) 2.3 % (3-13); PLATELET COUNT 283 10^3/uL (150-450); RED BLOOD COUNT 4.06 10^6/uL (3.72-5.28); RED CELL DISTRIBUTION WIDTH 14.2 % (11.5-14.0); TOTAL CELLS COUNTED % (AUTO) 100 %; WHITE BLOOD COUNT 6.2 10^3/uL (4.0-10.5)
[2018-02-01 07:48] LABS: ALANINE AMINOTRANSFERASE 42 U/L (9-52); ALBUMIN 3.6 g/dL (3.5-5.0); ALKALINE PHOSPHATASE 65 U/L (38-126); ANION GAP 9 (5-19); ASPARTATE AMINO TRANSFERASE 25 U/L (14-36); BILIRUBIN,DIRECT 0.2 mg/dL (0.0-0.4); BILIRUBIN,TOTAL 0.7 mg/dL (0.2-1.3); BLOOD UREA NITROGEN 18 mg/dL (7-20); CALCIUM 9.2 mg/dL (8.4-10.2); CARBON DIOXIDE 33 mmol/L (22-30); CHLORIDE 99 mmol/L (98-107); GLUCOSE 145 mg/dL (75-110); SODIUM 141.3 mmol/L (137-145); TOTAL PROTEIN 6.3 g/dL (6.3-8.2)
[2018-02-01] MEDS ORDERED: GABAPENTIN 300 MG CAPSULE PO SCH (10:00)
[2018-02-01] MEDS ORDERED: ASPIRIN 81 MG TABLET, CHEWABLE PO SCH (10:00)
[2018-02-01] MEDS ORDERED: PREDNISONE 20 MG TABLET PO SCH (10:00)
[2018-02-01] MEDS: APIXABAN 5 MG TABLET PO SCH (10:24)
[2018-02-01] MEDS: FLUTICASONE/SALMETEROL DISKUS 500-50 MCG/DOSE IH SCH (10:32)
[2018-02-01] MEDS: DRONEDARONE HYDROCHLORIDE 400 MG TABLET PO SCH (10:32)
[2018-02-01] MEDS: RANOLAZINE 500 MG TAB.SR.12H PO SCH (10:32)
[2018-02-01] MEDS: FUROSEMIDE INJ/PF 40 MG/4 ML SDV IV SCH (10:32)
[2018-02-01 12:56] VITALS: BP 130/56
--- NOTE | 2018-02-01 17:44 | PDOC TRANSFER SUMMARY ---
General Admission Date/PCP: 02/01/18 15:02 IDA GOMEZ Resuscitation Status: Full Code - Transfer Diagnosis (1) Pleural effusion Is this a current diagnosis for this admission?: Yes (2) Afib Is this a current diagnosis for this admission?: Yes (3) COPD exacerbation Is this a current diagnosis for this admission?: Yes (4) Congestive heart failure Is this a current diagnosis for this admission?: Yes (5) Mitral stenosis Is this a current diagnosis for this admission?: Yes (6) History of tobacco use disorder Is this a current diagnosis for this admission?: Yes - Transfer Medications Home Medications: Atorvastatin Calcium [Lipitor 20 mg Tablet] 20 mg PO QHS 01/18/18 Gabapentin [Neurontin 300 mg Capsule] 300 mg PO DAILY 01/18/18 Ranolazine [Ranexa 500 mg Tab.sr] 500 mg PO Q12 01/31/18 - Allergies Allergies/Adverse Reactions: No Known Allergies Allergy (Unverified 01/18/18 12:50) - Diet/Activity Discharge Diet: Cardiac Hospital Course Hospital Course: JAMES BRINK is a 77 year old female history of COPD, recently diagnosed A. fib treated with Cardizem and Multaq, sees Dr. Moore in clinic. She was last diagnosed about a week ago. Echo at that time (01/21/18) revealed moderate mitral stenosis, but severe MS could not be ruled out. Patient also discharged with Lasix and Ranexa. She had event monitoring done with Dr. Moore as outpatient and is awaiting result. She now presents with complaint of shortness of breath and dyspnea on exertion. She feels weak sometimes dizzy with minimal exertion. She has intermittent lower extremity swelling. Evaluation in the ED significant for chest CT revealing no pulmonary embolism, however there is moderate bilateral pleural effusions worse on the right. Patient referred for admission for further evaluation and management. Patient was admitted and started on Lasix diuresis. Her cardiac medications were continued. She was also treated with O2 as needed. She was evaluated by Dr. Moore of cardiology who recommended transfer to a tertiary center for further evaluation. He stated CHF likely from mitral stenosis. He stated patient will need EVELYN, possible cardiac cath and/or pacemaker. Patient agreeable to transfer. Grandson at bedside who is also agreeable to transfer. Overnight patient did well, breathing improving with diuresis, O2, and steroids. Physical Exam Vital Signs: Temp Pulse Resp BP Pulse Ox 97.4 F 53 L 17 130/56 H 98 02/01/18 11:26 02/01/18 14:00 02/01/18 11:26 02/01/18 11:26 02/01/18 11:26 GENERAL: Well-developed, no acute distress HEENT: Normocephalic/atraumatic NECK supple, no JVD CARDIOVASCULAR: Irregularly irregular, 1/6 systolic murmur, no gallop or rub LUNGS: Decreased breath sounds with crackles bases bilaterally with slight improvement, no wheezing bilaterally ABDOMEN: Soft, NT, NL bowel sounds EXTREMITIES: 1+ lower extremity edema, no clubbing, cyanosis NEUROLOGICAL: Alert, oriented x 3, nonfocal Results Impressions: Chest X-Ray 01/31/18 09:26 IMPRESSION: Moderate cardiomegaly with trace pleural effusions and Nga lines. Findings likely indicate fluid overload or congestive failure. There retrocardiac air bronchograms at the left posterior lung base, atelectasis versus pneumonia. Chest/Abdomen CTA 01/31/18 10:23 IMPRESSION: No evidence for pulmonary embolic disease. Moderate size bilateral pleural effusions are identified right greater than left. Minimal associated airspace consolidation is identified in the lung bases most consistent with atelectatic changes. Prominent interstitial changes are identified most consistent with interstitial edema. Underlying emphysematous changes are identified. Other findings as noted above Plan Time Spent: Less than 30 Minutes
--- NOTE | 2018-02-01 20:24 | PDOC PROGRESS REPORT ---
Subjective Progress Note for:: 02/01/18 Subjective:: Patient seems to be doing better with gradual improvement. Patient claims to be less short of breath. Pt is denying any chest arm or neck discomfort. Patient denying any PND, orthopnea. Patient denied any sustained palpitations, dizziness, syncope, near syncope. Patient denying any fever chills. Patient denying any other significant discomfort. Patient is maintaining sinus rhythm with mild sinus bradycardia and was noted to be asymptomatic. Review of systems: Rest review of systems negative. Medications: Medications have been reviewed. Reason For Visit: PLEURAL EFFUSION, CHF Physical Exam Vital Signs: Temp Pulse Resp BP Pulse Ox 97.4 F 53 L 17 130/56 H 98 02/01/18 11:26 02/01/18 14:00 02/01/18 11:26 02/01/18 11:26 02/01/18 11:26 Exam: GENERAL: well-nourished and in no acute distress. Alert and oriented x3 HEAD: Atraumatic, normocephalic. EYES: Pupils equal round and reactive to light, extraocular movements intact, sclera anicteric, conjunctiva are normal. ENT: TMs normal, nares patent, oropharynx clear without exudates. Moist mucous membranes. No oral ulcerations or bleeding gums noted NECK: supple without lymphadenopathy. Trachea is central. No cervical or axillary lymphadenopathy noted. Carotids are 2+, JVD WNL LUNGS: Respiration seems nonlabored, no significant accessory muscle action noted. Few bibasilar fine crackles noted with mild dullness both bases. CHEST: Palpation of the chest wall shows no significant chest wall tenderness. No other significant abnormalities noted. 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 1/6 early diastolic murmur noted in the mitral area. ABDOMEN: Soft, no significant tenderness appreciated, normoactive bowel sounds. No guarding, no rebound. No rigidity noted . No masses appreciated. EXTREMITIES: Pedal pulses are 1-2+, no calf tenderness noted. No clubbing or cyanosis. negative pedal edema noted NEUROLOGICAL: Focused neurological exam showed no significant neurologic deficit. Normal speech, no focal weakness appreciated. PSYCH: Normal mood, normal affect. Judgment and insight within normal limits. SKIN: No significant ecchymosis, skin is noted to be warm. MUSCULOSKELETAL EXAM: No significant acute joint swelling noted. Results EKG Comments: Telemetry shows sinus rhythm with bradycardia. No acute ST-T wave changes were noted. Impressions: Chest X-Ray 01/31/18 09:26 IMPRESSION: Moderate cardiomegaly with trace pleural effusions and Nga lines. Findings likely indicate fluid overload or congestive failure. There retrocardiac air bronchograms at the left posterior lung base, atelectasis versus pneumonia. Chest/Abdomen CTA 01/31/18 10:23 IMPRESSION: No evidence for pulmonary embolic disease. Moderate size bilateral pleural effusions are identified right greater than left. Minimal associated airspace consolidation is identified in the lung bases most consistent with atelectatic changes. Prominent interstitial changes are identified most consistent with interstitial edema. Underlying emphysematous changes are identified. Other findings as noted above Assessment & Plan - Diagnosis (1) Congestive heart failure Qualifiers: Heart failure type: diastolic Heart failure chronicity: acute Qualified Code(s): I50.31 - Acute diastolic (congestive) heart failure Is this a current diagnosis for this admission?: Yes (2) COPD (chronic obstructive pulmonary disease) Qualifiers: Emphysema type: unspecified Is this a current diagnosis for this admission?: Yes (3) Bradycardia Is this a current diagnosis for this admission?: Yes (4) Dyslipidemia Is this a current diagnosis for this admission?: Yes (5) Mitral regurgitation Qualifiers: Cardiac valve disease etiology: etiology unspecified Qualified Code(s): I34.0 - Nonrheumatic mitral (valve) insufficiency Is this a current diagnosis for this admission?: Yes (6) Mitral stenosis Qualifiers: Cardiac valve disease etiology: etiology unspecified Qualified Code(s): I05.0 - Rheumatic mitral stenosis Is this a current diagnosis for this admission?: Yes - Notes Notes: Congestive heart failure: Improved after IV Lasix. Most likely secondary to severe mitral stenosis. Patient also has some diastolic dysfunction. COPD: Continue prednisone and other supportive care. Bradycardia: This is mild. However in the past patient also had tachycardia episode with paroxysmal atrial fibrillation. Feel that management will be much easier with a backup dual-chamber pacemaker in place. Feel that patient may benefit from such a procedure. Dyslipidemia: Continue statin therapy. Mitral regurgitation and mitral stenosis: Due to recurrent CHF, further evaluation and management is indicated with at least a transesophageal echocardiogram will need to be performed. Patient may need a heart catheterization. These were all related to the patient and her grandson. Transfers was arranged yesterday for patient to go to hospitalist service to be followed by dba developer as well at [facility]. Currently awaiting a bed to be available there. - Time Time with patient: Greater than 35 minutes - CODE STATUS was discussed, patient remains full code. Surrogate decision-maker unchanged. Multiple medical problems were addressed. More than 50% of the time spent coordinating care, discussing management plans with involved caregivers. Management plans discussed with involved personnels. Medical decision making was of moderate to high complexity, patient's has multiple comorbidities. Medications reviewed and adjusted accordingly: Yes
== END 2018-02-01 15:17 | disposition short-term general hospital (02) | DRG 292 ==
LOC: ER 08:36 → INTOOBSV 10:41 → EH 10:41 → 4W 14:55 → OBSVTOIN 02-01 15:02
PROVIDERS: ADMIT Internal Medicine; ATTEND Internal Medicine
DX: I11.0 Hypertensive heart disease with heart failure (principal); J90 Pleural effusion, not elsewhere classified; J44.1 Chronic obstructive pulmonary disease with (acute) exacerbation; I50.31 Acute diastolic (congestive) heart failure; I48.91 Unspecified atrial fibrillation; I05.2 Rheumatic mitral stenosis with insufficiency; E78.00 Pure hypercholesterolemia, unspecified; Z79.01 Long term (current) use of anticoagulants; Z87.891 Personal history of nicotine dependence; Z79.82 Long term (current) use of aspirin; Z79.51 Long term (current) use of inhaled steroids; Z79.899 Other long term (current) drug therapy
CPT/HCPCS: 36415; 71045; 71275; 80053; 82550; 82553; 83880; 84484; 85025; 93005; 93010; 99291; G0378; J1940; J3490; J7512

== ENCOUNTER → 2019-01-06 | Outpatient (CLI) | payer MEDICARE ==
--- NOTE | 2019-01-06 13:53 | WOMENS IMAGING REPORT ---
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 TECHNIQUE: Dual-Energy X-ray Absorptiometry (DEXA) of the AP Spine and Hip. LIMITATIONS: None. FINDINGS: LUMBAR SPINE: The bone mineral density (BMD) measured from L1-L4 in the AP projection correlates with a T-score of -1.8, which is osteopenia as defined by the World Health Organization. HIP: The bone mineral density (BMD) measured in the left hip correlates with a T-score of -2.2 in the femo ral neck, which is osteopenia as defined by the World Health Organization. IMPRESSION: 1. LUMBAR SPINE: Osteopenia 2. HIP: Osteopenia COMMENT: The patient has a 29% 10 year risk of major osteoporotic fracture. Her 10 year risk of hip fracture is 19%. The World Health Organization defines low BMD as follows: T-score: Normal: Greater than -1.0 Osteopenia: Between -1.0 and -2.5 Osteoporosis: Less than -2.5 without fractures Established osteoporosis: Less than -2.5 with fractures In general, you may wish to consider: Diagnosis Treatment Follow-up DEXA Normal BMD Prevention 2-3 years Osteopenia Prevention/Therapy 1-2 years Osteoporosis Therapy Yearly TECHNICAL DOCUMENTATION: JOB ID: [id number] [employer]- All Rights Reserved Reading location - IP/workstation name: [email or web address]
== END ==
LOC: WI 13:18
PROVIDERS: ATTEND Nurse Practitioner Family
DX: M81.0 Age-related osteoporosis without current pathological fracture (principal)
CPT/HCPCS: 77080

== ENCOUNTER 2020-04-15 17:28 | Inpatient (IN) | payer MEDICARE ==
[2020-04-15] MEDS ORDERED: NORMAL SALINE 1000 ML 1,000 ML IV PRN (17:46)
[2020-04-15] MEDS ORDERED: PANTOPRAZOLE SODIUM 40 MG VIAL IV ONE (17:47)
--- NOTE | 2020-04-15 17:48 | ER Document Report ---
ED Medical Screen (RME) - General Chief Complaint: Bloody Stools Stated Complaint: BLOOD IN STOOL Time Seen by Provider: 04/15/20 17:44 Primary Care Provider: JOMAR CLEMONS FNP-C [Primary Care Provider] - Follow up as needed Notes: This an 79-year-old female with a history of a pacemaker and a valve replacement she takes Coumadin she presented today because she had very dark tarry like stools about 4 times in a turned to bright red bleeding per rectum she has had 5 bowel movements over the last hour. TRAVEL OUTSIDE OF THE [place] IN LAST 30 DAYS: No - Related Data Allergies/Adverse Reactions: No Known Allergies Allergy (Verified 04/15/20 17:44) Past Medical History - Past Medical History Cardiac Medical History: Reports: Hx Hypercholesterolemia, Hx Hypertension, Hx Heart Murmur - Story of heart murmur, told that she had a leaky valve. Renal/ Medical History: Denies: Hx Peritoneal Dialysis Psychiatric Medical History: Denies: Hx Depression Past Surgical History: Reports: Hx Cardiac Surgery - Mitral valve replacement, Hx Hysterectomy Physical Exam - Vital signs Vitals: Temp Pulse Resp BP Pulse Ox 98.4 F 101 H 18 147/93 H 94 04/15/20 17:38 04/15/20 17:38 04/15/20 17:38 04/15/20 17:38 04/15/20 17:38 Course - Vital Signs Vital signs: Temp Pulse Resp BP Pulse Ox 98.4 F 101 H 18 147/93 H 94 04/15/20 17:38 04/15/20 17:38 04/15/20 17:38 04/15/20 17:38 04/15/20 17:38 Doctor's Discharge - Discharge Referrals: JOMAR CLEMONS FNP-C [Primary Care Provider] - Follow up as needed
[2020-04-15 18:44] LABS: ABSOLUTE BASOPHILS # (AUTO) 0.1 10^3/uL (0.0-0.2); ABSOLUTE EOSINOPHILS # (AUTO) 0.2 10^3/uL (0.0-0.6); ABSOLUTE LYMPHOCYTES (AUTO) 1.1 10^3/uL (0.5-4.7); ABSOLUTE NEUT (AUTO) 6.9 10^3/uL (1.7-8.2); EOSINOPHILS % (AUTO) 1.7 % (0-6); HEMATOCRIT 41.5 % (36.0-47.0); HEMOGLOBIN 13.9 g/dL (12.0-15.5); LYMPHOCYTES % (AUTO) 11.6 % (13-45); MEAN CORPUSCULAR HEMOGLOBIN 30.8 pg (27.0-33.4); MEAN CORPUSCULAR HGB CONC 33.4 g/dL (32.0-36.0); MEAN CORPUSCULAR VOLUME 92 fl (80-97); MONOCYTES % (AUTO) 10.4 % (3-13); PLATELET COUNT 275 10^3/uL (150-450); RED CELL DISTRIBUTION WIDTH 15.1 % (11.5-14.0); SEGMENTED NEUTROPHILS % (AUTO) 75.3 % (42-78); TOTAL CELLS COUNTED % (AUTO) 100 %; WHITE BLOOD COUNT 9.2 10^3/uL (4.0-10.5)
[2020-04-15 18:52] LABS: APPEARANCE,URINE SLIGHTLY-CLOUDY; BILIRUBIN,URINE NEGATIVE (NEGATIVE); COLOR,URINE YELLOW; GLUCOSE, URINE NEGATIVE (NEGATIVE); INTERNATIONAL RATION (INR) 3.42; KETONES,URINE NEGATIVE (NEGATIVE); LEUKOCYTE ESTERASE,URINE NEGATIVE (NEGATIVE); NITRITE,URINE NEGATIVE (NEGATIVE); PROTEIN,URINE NEGATIVE (NEGATIVE); PROTHROMBIN TIME 35.3 SEC (11.4-15.4); URINE SPECIFIC GRAVITY 1.012; UROBILINOGEN,URINE NEGATIVE mg/dL (<2.0)
[2020-04-15 19:01] LABS: ALBUMIN 3.9 g/dL (3.5-5.0); ALKALINE PHOSPHATASE 103 U/L (38-126); ANION GAP 6 (5-19); ASPARTATE AMINO TRANSFERASE 39 U/L (14-36); BILIRUBIN,TOTAL 0.6 mg/dL (0.2-1.3); BLOOD UREA NITROGEN 26 mg/dL (7-20); CALCIUM 8.9 mg/dL (8.4-10.2); CARBON DIOXIDE 28 mmol/L (22-30); CHLORIDE 103 mmol/L (98-107); GLUCOSE 115 mg/dL (75-110); POTASSIUM 4.1 mmol/L (3.6-5.0); TOTAL PROTEIN 7.5 g/dL (6.3-8.2)
[2020-04-16] MEDS ORDERED: PHYTONADIONE 5 MG TABLET PO ONE (00:44)
[2020-04-16] MEDS ORDERED: PANTOPRAZOLE SODIUM 40 MG VIAL IV ONE (01:33)
--- NOTE | 2020-04-16 01:36 | ER Document Report ---
ED General - General Chief Complaint: Bloody Stools Stated Complaint: BLOOD IN STOOL Time Seen by Provider: 04/15/20 17:44 Primary Care Provider: JOMAR CLEMONS FNP-C [Primary Care Provider] - Follow up as needed TRAVEL OUTSIDE OF THE [place] IN LAST 30 DAYS: No - HPI Notes: Patient is a very pleasant 79-year-old female, with a history of atrial fibrillation and bovine bioprosthetic mitral valve replacement, who presents to the emergency department for evaluation of bloody bowel movements. She states she went to go for a walk, but shortly into her walk when she believes she had some diarrhea. She walked back of the house, found a large dark, mostly bloody bowel movement. She states she has had a total of approximately 9 or 10 of these episodes since 3 PM. Her last one was approximately 90 minutes ago. She states she really did not have any pain. She is currently on Coumadin. She states her INR was last checked a few weeks ago. She denies any current pain. Said no fevers or chills. No nausea or vomiting. Normal appetite. She has been taking her medications as prescribed. She states she has had a colonoscopy, but it has been "several years ago." - Related Data Allergies/Adverse Reactions: No Known Allergies Allergy (Verified 04/15/20 17:44) Home Medications: Neurontin 300 mg daily, Coumadin, except Sunday and , where she takes 1 mg daily, Lasix 40 mg twice daily, potassium 20 mEq daily, diltiazem 30 mg twice daily, atorvastatin 40 mg daily, vitamin D 50,000 units we ekly Past Medical History - General Information source: Patient, Relative - Social History Smoking Status: Current Some Day Smoker Frequency of alcohol use: None Drug Abuse: None Family History: CVA - Father, Malignancy Patient has homicidal ideation: No - Past Medical History Cardiac Medical History: Reports: Hx Atrial Fibrillation, Hx Hypercholesterole severiano, Hx Hypertension, Hx Heart Murmur - Story of heart murmur, told that she had a leaky valve. Renal/ Medical History: Denies: Hx Peritoneal Dialysis Psychiatric Medical History: Denies: Hx Depression Past Surgical History: Reports: Hx Cardiac Surgery - Mitral valve replacement, Hx Hysterectomy Review of Systems - Review of Systems Gastrointestinal: See HPI -: Yes All other systems reviewed and negative Physical Exam - Vital signs Vitals: Temp Pulse Resp BP Pulse Ox 98.4 F 101 H 18 147/93 H 94 04/15/20 17:38 04/15/20 17:38 04/15/20 17:38 04/15/20 17:38 04/15/20 17:38 - Notes Notes: This is a very pleasant 79-year-old female who appears younger than her stated age, no acute distress. Vital signs reviewed, please refer to chart. Head is normocephalic, atraumatic. Pupils equal round, reactive to light. Neck is supple without meningismus. Heart is irregularly irregular. Lungs are clear to auscultation bilaterally. Abdomen is soft, moderately tender in the right upper quadrant without rebound or guarding, normoactive bowel sounds throughout. Extremities without cyanosis, clubbing. Posterior calves are nontender. Peripheral pulses are equal. Skin is warm and dry. Patient is awake, alert, neurological exam is nonfocal. Course - Re-evaluation Re-evalutation: 04/16/20 01:41 Patient presents to the emergency department for evaluation. She was initially seen through triage. She did in fact have heme positive stool, but her hemoglobin is stable. Her vitals signs are stable. On exam she does have some significant tenderness, so CT scan of the abdomen pelvis is ordered. Her INR is moderately elevated. I wanted to be sure there was no indication for anticoagulation and just a bioprosthetic valve. She does have a history of atrial fibrillation, which of course is a good indication for anticoagulation. I spoke with Dr. Luna, on-call cobol engineer, who verifies the anticoagulation should be for atrial fibrillation only. Given this as well as her bleeding, I am inclined to give her at least low-dose vitamin K. She is given 2.5 mg of vitamin K. I will recheck her hemoglobin. She is currently stable, we will continue to monitor. 04/16/20 01:49 Patient's second hemoglobin has shown a good drop of 2 g. She was given vitamin K. Awaiting CT scan. Otherwise she remains stable, current blood pressure 135/69. 04/16/20 02:33 CT scan shows extensive diverticulosis without diverticulitis. Her vitals have been stable. She did have a significant hemoglobin drop. Dr. Mulligan will admit the patient. - Vital Signs Vital signs: Temp Pulse Resp BP Pulse Ox 98.4 F 101 H 18 140/75 H 97 04/15/20 17:44 04/15/20 17:38 04/15/20 17:38 04/16/20 02:01 04/16/20 02:01 - Laboratory Result Diagrams: 04/16/20 01:28 04/15/20 15:10 Laboratory results interpreted by me: 04/15/20 04/15/20 04/15/20 15:10 15:10 15:10 Hgb Hct RDW 15.1 H Lymph % (Auto) 11.6 L PT 35.3 H BUN 26 H Creatinine 1.35 H Est GFR ( Amer) 46 L Est GFR (MDRD) Non-Af 38 L Glucose 115 H AST 39 H Urine Blood Urine Ascorbic Acid 04/15/20 04/16/20 15:10 01:28 Hgb 11.7 L D Hct 34.4 L RDW 14.8 H Lymph % (Auto) PT BUN Creatinine Est GFR ( Amer) Est GFR (MDRD) Non-Af Glucose AST Urine Blood SMALL H Urine Ascorbic Acid 20 H - Diagnostic Test Radiology reviewed: Reports reviewed Radiology results interpreted by me: 04/16/20 02:33 Abdomen/Pelvis CT 04/16/20 01:16 IMPRESSION: 1. Extensive colonic diverticulosis. No CT evidence for acute diverticulitis. 2. No bowel obstruction or perforation. 3. Possible cholelithiasis 4. Atherosclerosis and other chronic findings as described Discharge - Discharge Clinical Impression: Afib Qualifiers: Atrial fibrillation type: paroxysmal Qualified Code(s): I48.0 - Paroxysmal atrial fibrillation GI bleeding Qualifiers: GI bleed type/associated pathology: unspecified gastrointestinal hemorrhage type Qualified Code(s): K92.2 - Gastrointestinal hemorrhage, unspecified Condition: Stable Disposition: ADMITTED INPATIENT Admitting Provider: Ese (Hospitalist) Unit Admitted: Medical Floor Referrals: JOMAR CLEMONS FNP-C [Primary Care Provider] - Follow up as needed
[2020-04-16 01:41] LABS: HEMATOCRIT 34.4 % (36.0-47.0); MEAN CORPUSCULAR HEMOGLOBIN 31.3 pg (27.0-33.4); MEAN CORPUSCULAR VOLUME 92 fl (80-97); PLATELET COUNT 218 10^3/uL (150-450); RED BLOOD COUNT 3.73 10^6/uL (3.72-5.28); RED CELL DISTRIBUTION WIDTH 14.8 % (11.5-14.0); WHITE BLOOD COUNT 10.1 10^3/uL (4.0-10.5)
[2020-04-16 01:42] LABS: HEMOGLOBIN 11.7 g/dL (12.0-15.5)
--- NOTE | 2020-04-16 02:19 | RADIOLOGY REPORT (SQ) ---
EXAM DESCRIPTION: RadLex: CT ABDOMEN PELVIS WITHOUT IV CONTRAST CLINICAL HISTORY: 79 years Female; abdominal pain, GI bleeding; TECHNIQUE: CT of the abdomen and pelvis without contrast. All CT scans at this facility use dose modulation, iterative reconstruction, and/or weight based dosing when appropriate to reduce radiation dose to as low as reasonably achievable. COMPARISON: None. FINDINGS: Pacemaker wires and mitral valve replacement are noted. Chronic interstitial fibrosis is partially visualized in the lower lobes. Abdomen: Stomach: Moderately sized hiatal hernia. No adjacent edema. Liver: No focal lesions. Gallbladder: Hyperdense material in the dependent portion. No adjacent edema. Pancreas:Within normal limits Spleen:Within normal limits Right kidney:No hydronephrosis. No renal or ureteral calculi. Left kidney:No hydronephrosis. No renal or ureteral calculi. Adrenal glands:Within normal limits Vascular structures: Extensive aortic and branch calcifications. No aortic aneurysm. Pelvis: Small bowel: Nondistended. There are a few air-fluid levels. No mesenteric edema. Appendix:Within normal limits Colon: Extensive diverticulosis, mostly involving the sigmoid colon. No acute pericolonic edema. No free intraperitoneal fluid or air. Bones: Chronic degenerative changes of the lumbar spine, with a levocurvature due to asymmetric disc space narrowing. No acute bone findings. Bladder: Unremarkable. No pelvic mass or adenopathy. Note that evaluation of the bowel and solid organs is somewhat limited due to lack of intravenous and oral contrast. IMPRESSION: 1. Extensive colonic diverticulosis. No CT evidence for acute diverticulitis. 2. No bowel obstruction or perforation. 3. Possible cholelithiasis 4. Atherosclerosis and other chronic findings as described
[2020-04-16] MEDS ORDERED: MAG HYDROX/AL HYDROX/SIMETH SUSP 30 ML UDCUP PO PRN (02:57)
[2020-04-16] MEDS ORDERED: LORAZEPAM INJ 2 MG/1 ML VIAL IV PRN (02:57)
[2020-04-16] MEDS ORDERED: LEVALBUTEROL HCL NEB 0.63 MG/3 ML AMPUL NEB PRN (02:57)
[2020-04-16] MEDS ORDERED: MELATONIN 5 MG TABLET PO PRN (02:57)
[2020-04-16] MEDS ORDERED: NICOTINE 21 MG/24 HR PATCH.TD24 TD PRN (02:57)
[2020-04-16] MEDS ORDERED: GUAIFENESIN SYRP 200 MG/10 ML UDC PO PRN (02:57)
[2020-04-16] MEDS ORDERED: HYDRALAZINE HCL INJ/PF 20 MG/1 ML SDV IV PRN (02:57)
[2020-04-16] MEDS ORDERED: ONDANSETRON HCL INJ/PF 4 MG/2 ML SDV IV PRN (02:59)
[2020-04-16 04:00] LABS: INTERNATIONAL RATION (INR) 3.22; PROTHROMBIN TIME 33.6 SEC (11.4-15.4)
--- NOTE | 2020-04-16 05:37 | PDOC H&P ---
History of Present Illness Admission Date/PCP: 04/16/2020 02:36 IDA GOMEZ Patient complains of: Rectal bleeding History of Present Illness: JAMES BRINK is a 79 year old female emergency room with acute rectal bleeding. She admits the sudden onset acute dark bloody diarrhea with a total of 10 stools from over the 2 hours prior to her ER presentation. Her diarrhea has been painless and she denies any associated or accompanying signs and symptoms. She denies prior similar episodes. She admits chronic anticoagulation with Coumadin for chronic atrial fibrillation. She denies identification of any aggravating or ameliorating factors for her rectal bleeding. In the emergency room she was found to have an initial hemoglobin which fell from 13.9-11.7. Her INR was 3.4. She was subsequently admitted to the hospital for further evaluation and treatment. Past Medical History Cardiac Medical History: Reports: Atrial Fibrillation, Coronary Artery Disease, Myocardial Infarction, Hyperlipidema, Hypertension, Heart Murmur - Mitral valve disease Pulmonary Medical History: Reports: Chronic Obstructive Pulmonary Disease (COPD), Pneumonia Denies: Asthma EENT Medical History: Denies: Cataracts, Ears - Hearing aids Neurological Medical History: Denies: Hemorrhagic CVA, Ischemic CVA Endocrine Medical History: Denies: Diabetes Mellitus Type 1, Diabetes Mellitus Type 2, Hyperthyroidism, Hypothyroidism, Obesity Renal/ Medical History: Reports: Chronic Kidney Disease Denies: Nephrolithiasis Malignancy Medical History: Reports: None GI Medical History: Reports: Other - Diverticulosis Denies: Cirrhosis, Crohn's Disease, Gastroesophageal Reflux Disease, Hepatitis, Peptic Ulcer Disease, Ulcerative Colitis Musculoskeltal Medical History: Denies: Arthritis, Fibromyalgia Skin Medical History: Denies: Eczema, Psoriasis Psychiatric Medical History: Reports: Tobacco Dependency Denies: Alcohol Dependency, Depression, Substance Abuse Traumatic Medical History: Reports: None Hematology: Reports: Bleeding Tendencies - On warfarin Denies: Anemia Infectious Medical History: Reports: None Past Surgical History Past Surgical History: Reports: Cardiac Catheterization, Hysterectomy, Internal Defibrillator - AICD/pacer, Valve Replacement - Bioprosthetic mitral valve replacement Social History Information Source: Patient Lives with: Family Smoking Status: Current Every Day Smoker Electronic Cigarette use?: No Frequency of Alcohol Use: None Hx Recreational Drug Use: No Drugs: None Hx Prescription Drug Abuse: No - Advance Directive Resuscitation Status: Full Code Surrogate healthcare decision maker:: Buddy Terrazas Family History Family History: CVA - Father, Malignancy Parental Family History Reviewed: Yes Children Family History Reviewed: No Sibling(s) Family History Reviewed.: Yes Medication/Allergy Allergies/Adverse Reactions: No Known Allergies Allergy (Verified 04/15/20 17:44) Review of Systems Constitutional: ABSENT: chills, fever(s) Eyes: ABSENT: visual disturbances, other - Eye pain Ears: ABSENT: hearing changes, other - Ear pain Nose, Mouth, and Throat: ABSENT: headache(s), sore throat Cardiovascular: ABSENT: chest pain, palpitations Respiratory: ABSENT: cough, dyspnea Gastrointestinal: PRESENT: as per HPI, diarrhea, hematochezia, melena. ABSENT: abdominal pain, constipation, nausea, vomiting Genitourinary: ABSENT: dysuria, hematuria Musculoskeletal: ABSENT: back pain, joint swelling Integumentary: ABSENT: pruritus, rash Neurological: ABSENT: confusion, convulsions, focal weakness, memory loss, syncope Psychiatric: ABSENT: anxiety, depression Endocrine: ABSENT: cold intolerance, heat intolerance Hematologic/Lymphatic: ABSENT: easy bleeding, easy bruising Allergic/Immunologic: ABSENT: seasonal rhinorrhea Physical Exam Vital Signs: Temp Pulse Resp BP Pulse Ox 98.4 F 101 H 18 140/75 H 97 04/15/20 17:44 04/15/20 17:38 04/15/20 17:38 04/16/20 02:01 04/16/20 02:01 Intake & Output 04/14/20 04/15/20 04/16/20 23:59 23:59 23:59 Intake Total 1000 Balance 1000 Weight 54.8 kg General appearance: PRESENT: no acute distress, cooperative Head exam: PRESENT: atraumatic, normocephalic Eye exam: PRESENT: conjunctiva pink. ABSENT: conjunctival injection, scleral icterus Ear exam: PRESENT: normal external ear exam. ABSENT: bleeding, drainage Mouth exam: PRESENT: dry mucosa, neck supple Neck exam: ABSENT: thyromegaly, tracheal deviation Respiratory exam: PRESENT: prolonged expiratory phas - Minimally prolonged expiratory phase in all nogueira, symmetrical, unlabored Cardiovascular exam: PRESENT: irregular rhythm - Irregularly irregular rate and rhythm. ABSENT: clicks, gallop, rubs Pulses: PRESENT: normal radial pulses, normal dorsalis pedis pul Vascular exam: PRESENT: normal capillary refill. ABSENT: pallor GI/Abdominal exam: PRESENT: normal bowel sounds, soft. ABSENT: tenderness Rectal exam: PRESENT: deferred Extremities exam: ABSENT: joint swelling, pedal edema Musculoskeletal exam: ABSENT: deformity, dislocation Neurological exam: PRESENT: alert, oriented to person, oriented to place, o riented to time, oriented to situation, CN II-XII grossly intact. ABSENT: motor sensory deficit Psychiatric exam: PRESENT: appropriate affect, normal mood Skin exam: PRESENT: dry, intact, warm. ABSENT: jaundice, rash, urticaria Results Laboratory Results: 04/16/20 01:28 04/15/20 15:10 04/15/20 04/15/20 04/15/20 15:10 15:10 15:10 WBC 9.2 RBC 4.50 Hgb 13.9 Hct 41.5 MCV 92 MCH 30.8 MCHC 33.4 RDW 15.1 H Plt Count 275 Seg Neutrophils % 75.3 Sodium 137.2 Potassium 4.1 Chloride 103 Carbon Dioxide 28 Anion Gap 6 BUN 26 H Creatinine 1.35 H Est GFR ( Amer) 46 L Glucose 115 H Calcium 8.9 Total Bilirubin 0.6 AST 39 H Alkaline Phosphatase 103 Total Protein 7.5 Albumin 3.9 Urine Color YELLOW Urine Appearance SLIGHTLY-CLOUDY Urine pH 8.0 Ur Specific [place] 1.012 Urine Protein NEGATIVE Urine Glucose (UA) NEGATIVE Urine Ketones NEGATIVE Urine Blood SMALL H Urine Nitrite NEGATIVE Ur Leukocyte Esterase NEGATIVE Urine WBC (Auto) 1 04/16/20 01:28 WBC 10.1 RBC 3.73 Hgb 11.7 L D Hct 34.4 L MCV 92 MCH 31.3 MCHC 34.0 RDW 14.8 H Plt Count 218 Seg Neutrophils % Sodium Potassium Chloride Carbon Dioxide Anion Gap BUN Creatinine Est GFR ( Amer) Glucose Calcium Total Bilirubin AST Alkaline Phosphatase Total Protein Albumin Urine Color Urine Appearance Urine pH Ur Specific [place] Urine Protein Urine Glucose (UA) Urine Ketones Urine Blood Urine Nitrite Ur Leukocyte Esterase Urine WBC (Auto) Impressions: Abdomen/Pelvis CT 04/16/20 01:16 IMPRESSION: 1. Extensive colonic diverticulosis. No CT evidence for acute diverticulitis. 2. No bowel obstruction or perforation. 3. Possible cholelithiasis 4. Atherosclerosis and other chronic findings as described Assessment and Plan - Diagnosis (1) Rectal bleeding Is this a current diagnosis for this admission?: Yes (2) Chronic anticoagulation Is this a current diagnosis for this admission?: Yes (3) Afib Qualifiers: Atrial fibrillation type: unspecified Qualified Code(s): I48.91 - Unspecified atrial fibrillation Is this a current diagnosis for this admission?: Yes (4) COPD (chronic obstructive pulmonary disease) Qualifiers: Emphysema type: unspecified Is this a current diagnosis for this admission?: Yes (5) Dyslipidemia Is this a current diagnosis for this admission?: Yes (6) Tobacco abuse Is this a current diagnosis for this admission?: Yes - Plan Summary Summary: The patient will be admitted to the medical floor where she will receive routine supportive and symptomatic cares. Serial hemoglobin and hematocrit measurements will be obtained. A gastroenterology or surgical consultation will be obtained to arrange for a colonoscopy evaluation after the patient's bleeding has resolved. She will receive Ativan 1 mg IV every 4 hours as needed for anxiety or restlessness. Her usual medications will be continued, as appropriate, once her medication list has been reconciled and verified. Serial INRs will be obtained. Patient will be on a cardiac diet. Smoking cessation is advised and counseled briefly at the bedside. A nicotine replacement patch is available for the patient's use, if desired. - Time Time Spent with patient: 15-24 minutes Smoking Cessation Education: 3 to 10 minutes Medications reviewed and adjusted accordingly: Yes Anticipated discharge: Home - Inpatient Certification Based on my medical assessment, after consideration of the patient's comorbidities, presenting symptoms, or acuity I expect that the services needed warrant INPATIENT care.: Yes I certify that my determination is in accordance with my understanding of Medicare's requirements for reasonable and necessary INPATIENT services [42 CFR 412.3e].: Yes Medical Necessity: Need Close Monitoring Due to Risk of Patient Decompensation, Risk of Complication if Not Cared For in Hospital, Risk of Diagnosis Which Will Require Inpatient Eval/Care/Monitoring
[2020-04-16] MEDS: PANTOPRAZOLE SODIUM 40 MG VIAL IV SCH ×2 (10:09→21:28)
--- NOTE | 2020-04-16 15:28 | Progress Note ---
Provider Note Provider Note: She is not having any more bleeding. She describes the blood that she saw is bright red. She denies any abdominal pain. Her warfarin is on hold. She had diverticulosis on abdominal CT without any evidence of any mass or diverticulitis. We will watch her to see if she continues to bleed. If not, we may be able to get her colonoscopy as an outpatient.
[2020-04-16 20:23] LABS: HEMOGLOBIN 10.2 g/dL (12.0-15.5); MEAN CORPUSCULAR HEMOGLOBIN 32.2 pg (27.0-33.4); MEAN CORPUSCULAR HGB CONC 35.3 g/dL (32.0-36.0); MEAN CORPUSCULAR VOLUME 91 fl (80-97); PLATELET COUNT 214 10^3/uL (150-450); RED BLOOD COUNT 3.17 10^6/uL (3.72-5.28); WHITE BLOOD COUNT 7.8 10^3/uL (4.0-10.5)
[2020-04-16] MEDS: DILTIAZEM HCL 30 MG TABLET PO SCH (21:28)
[2020-04-17 05:05] LABS: HEMATOCRIT 27.3 % (36.0-47.0); HEMOGLOBIN 9.3 g/dL (12.0-15.5); MEAN CORPUSCULAR HEMOGLOBIN 31.4 pg (27.0-33.4); MEAN CORPUSCULAR HGB CONC 34.2 g/dL (32.0-36.0); MEAN CORPUSCULAR VOLUME 92 fl (80-97); PLATELET COUNT 202 10^3/uL (150-450); RED BLOOD COUNT 2.96 10^6/uL (3.72-5.28); RED CELL DISTRIBUTION WIDTH 15.1 % (11.5-14.0); WHITE BLOOD COUNT 7.6 10^3/uL (4.0-10.5)
[2020-04-17 05:10] LABS: INTERNATIONAL RATION (INR) 2.47; PROTHROMBIN TIME 27.2 SEC (11.4-15.4)
[2020-04-17 05:28] LABS: BLOOD UREA NITROGEN 29 mg/dL (7-20); CALCIUM 8.2 mg/dL (8.4-10.2); CARBON DIOXIDE 25 mmol/L (22-30); CHLORIDE 109 mmol/L (98-107); GLUCOSE 99 mg/dL (75-110); POTASSIUM 3.9 mmol/L (3.6-5.0)
[2020-04-17 05:40] LABS: ANION GAP 4 (5-19)
[2020-04-17] MEDS: POTASSIUM CHLORIDE 10 MEQ TABLET.ER PO SCH (09:11)
[2020-04-17] MEDS: AMIODARONE HCL 200 MG TABLET PO SCH (09:11)
[2020-04-17] MEDS: GABAPENTIN 300 MG CAPSULE PO SCH ×2 (09:11→18:25)
[2020-04-17] MEDS: DILTIAZEM HCL 30 MG TABLET PO SCH ×2 (09:12→21:24)
[2020-04-17] MEDS: ATORVASTATIN CALCIUM 40 MG TABLET PO SCH (09:12)
[2020-04-17] MEDS: FUROSEMIDE 40 MG TABLET PO SCH ×2 (09:12→18:25)
[2020-04-17] MEDS: PANTOPRAZOLE SODIUM 40 MG VIAL IV SCH ×2 (09:13→21:24)
[2020-04-17] MEDS ORDERED: PEG 3350/NA SULF,BICARB,CL/KCL 4000 ML PO ONE (11:30)
[2020-04-17] MEDS ORDERED: PHYTONADIONE 5 MG TABLET PO ONE (11:30)
--- NOTE | 2020-04-17 14:31 | PDOC PROGRESS REPORT ---
Subjective Progress Note for:: 04/17/20 Subjective:: No adverse events overnight. She still passing some blood in her stool. This time she says it is clots that are pretty large. Her hemoglobin is down a little bit. No abdominal pain or nausea. Reason For Visit: ACUTE RECTAL BLEEDING,CHRONIC ANTICOAGULATION Physical Exam Vital Signs: Temp Pulse Resp BP Pulse Ox 97.2 F 70 16 102/54 L 93 04/17/20 11:08 04/17/20 11:29 04/17/20 11:29 04/17/20 11:08 04/17/20 11:29 Intake & Output 04/16/20 04/17/20 04/18/20 06:59 06:59 06:59 Intake Total 1100 Balance 1100 Weight 54.8 kg 56.5 kg General appearance: PRESENT: no acute distress, cooperative, disheveled Cardiovascular exam: PRESENT: RRR, +S1, +S2 Pulses: PRESENT: normal carotid pulses Vascular exam: PRESENT: normal capillary refill GI/Abdominal exam: PRESENT: normal bowel sounds, soft. ABSENT: distended, guarding, rebound, tenderness Extremities exam: ABSENT: clubbing, pedal edema Musculoskeletal exam: PRESENT: ambulatory, normal inspection. ABSENT: deformity Neurological exam: PRESENT: alert, awake, oriented to person, oriented to place, oriented to situation Psychiatric exam: PRESENT: appropriate affect, normal mood Skin exam: PRESENT: dry, warm Results Laboratory Results: 04/17/20 03:44 04/17/20 03:44 04/16/20 04/17/20 04/17/20 20:00 03:44 03:44 WBC 7.8 7.6 RBC 3.17 L 2.96 L Hgb 10.2 L 9.3 L Hct 29.0 L 27.3 L MCV 91 92 MCH 32.2 31.4 MCHC 35.3 34.2 RDW 15.0 H 15.1 H Plt Count 214 202 Sodium 138.2 Potassium 3.9 Chloride 109 H Carbon Dioxide 25 Anion Gap 4 L BUN 29 H Creatinine 1.25 Est GFR ( Amer) 50 L Glucose 99 Calcium 8.2 L Magnesium 2.4 H Impressions: Abdomen/Pelvis CT 04/16/20 01:16 IMPRESSION: 1. Extensive colonic diverticulosis. No CT evidence for acute diverticulitis. 2. No bowel obstruction or perforation. 3. Possible cholelithiasis 4. Atherosclerosis and other chronic findings as described Assessment and Plan - Diagnosis (1) GI bleeding Qualifiers: GI bleed type/associated pathology: unspecified gastrointestinal hemorrhage type Qualified Code(s): K92.2 - Gastrointestinal hemorrhage, unspecified Is this a current diagnosis for this admission?: Yes Plan: I was hoping that her bleeding would stop and we can keep her off of her blood thinner and let her have endoscopic evaluation as an outpatient, but her hemoglobin is continued to drop and she still passing some blood. I have given her another dose of vitamin K and have consulted Dr. Lopez. The plan is for endoscopic evaluation in the morning. She is being bowel prep tonight. (2) Afib Qualifiers: Atrial fibrillation type: unspecified Qualified Code(s): I48.91 - Unspecified atrial fibrillation Is this a current diagnosis for this admission?: Yes Plan: Warfarin is held. She continues on diltiazem and amiodarone. Currently in a sinus rhythm. (3) Chronic anticoagulation Is this a current diagnosis for this admission?: Yes Plan: Warfarin held as previously noted (4) COPD (chronic obstructive pulmonary disease) Qualifiers: COPD type: emphysema Emphysema type: centrilobular Qualified Code(s): J4 3.2 - Centrilobular emphysema Is this a current diagnosis for this admission?: Yes Plan: Not acutely exacerbated - Plan Summary Summary: The patient will be admitted to the medical floor where she will receive routine supportive and symptomatic cares. Serial hemoglobin and hematocrit measurements will be obtained. A gastroenterology or surgical consultation will be obtained to arrange for a colonoscopy evaluation after the patient's bleeding has resolved. She will receive Ativan 1 mg IV every 4 hours as needed for anxiety or restlessness. Her usual medications will be continued, as appropriate, once her medication list has been reconciled and verified. Serial INRs will be obtained. Patient will be on a cardiac diet. Smoking cessation is advised and counseled briefly at the bedside. A nicotine replacement patch is available for the patient's use, if desired. - Time Time Spent with patient: 25-34 minutes
--- NOTE | 2020-04-17 16:34 | PDOC CONSULTATION ---
Consultation Consult Date: 04/17/20 Attending physician:: MADDY GONSALES Provider Consulted: CONSTANCE LOPEZ Consult reason:: GI bleeding History of Present Illness Admission Date/PCP: 04/16/20 02:56 IDA GOMEZ History of Present Illness: JAMES BRINK is a 79 year old female Presents to the emergency department with a several day history of dark tarry s tools. She has had over 10 bowel movements with blood. Patient is on Coumadin for atrial fibrillation. She denies previous GI bleeds. She had a colonoscopy more than 10 years ago with unclear findings. She denies family history of colorectal cancer. She is a smoker, with a strong cardiac history and is a DNR. She has been hospitalized for 2 days with persisting rectal bleeding, and drop in hemoglobin from 13.9-9.3. Endoscopy has been requested. Patient's Coumadin has been held for 2 days. Past Medical History Past Medical History: There are disease, dysrhythmia, history of myocardial infarction, COPD, smoking history, pharmacologically anticoagulated Cardiac Medical History: Reports: Atrial Fibrillation, Congestive Heart Failure, Coronary Artery Disease, Myocardial Infarction, Hyperlipidema, Hypertension, Heart Murmur - Mitral valve disease Pulmonary Medical History: Reports: Chronic Obstructive Pulmonary Disease (COPD), Pneumonia Denies: Asthma EENT Medical History: Denies: Cataracts, Ears - Hearing aids Neurological Medical History: Denies: Hemorrhagic CVA, Ischemic CVA Endocrine Medical History: Denies: Diabetes Mellitus Type 1, Diabetes Mellitus Type 2, Hyperthyroidism, Hypothyroidism, Obesity Renal/ Medical History: Reports: Chronic Kidney Disease Denies: Nephrolithiasis Malignancy Medical History: Reports: None GI Medical History: Reports: Other - Diverticulosis Denies: Cirrhosis, Crohn's Disease, Gastroesophageal Reflux Disease, Hepatitis, Peptic Ulcer Disease, Ulcerative Colitis Musculoskeltal Medical History: Denies: Arthritis, Fibromyalgia Skin Medical History: Denies: Eczema, Psoriasis Psychiatric Medical History: Reports: Tobacco Dependency Denies: Alcohol Dependency, Depression, Substance Abuse Traumatic Medical History: Reports: None Hematology: Reports: Bleeding Tendencies - On warfarin Denies: Anemia Infectious Medical History: Reports: None Past Surgical History Past Surgical History: Both the mitral valve replaced 2017, ; con current a defibrillator pacer left subclavian position [facility] Past Surgical History: Reports: Cardiac Catheterization, Hysterectomy, Internal Defibrillator - AICD/pacer, Valve Replacement - Bioprosthetic mitral valve repl acement Social History Lives with: Family Smoking Status: Current Every Day Smoker Electronic Cigarette use?: No Frequency of Alcohol Use: None Hx Recreational Drug Use: No Drugs: None Hx Prescription Drug Abuse: No - Advance Directive Resuscitation Status: Full Code Family History Family History: None, CVA - Father, Malignancy Parental Family History Reviewed: No Children Family History Reviewed: No Sibling(s) Family History Reviewed.: No Medication/Allergy Home Medications: Amiodarone HCl [Cordarone 200 mg Tablet] 1 tab PO QAM 04/16/20 Atorvastatin Calcium [Lipitor 40 mg Tablet] 40 mg PO QAM 04/16/20 Diltiazem HCl [Cardizem 30 mg Tablet] 1 tab PO Q12 04/16/20 Ergocalciferol (Vitamin D2) [Drisdol 50,000 unit (1.25MG) Capsule] 1 cap PO [id number]/16/20 Furosemide [Lasix 40 mg Tablet] 40 mg PO BID 04/16/20 Gabapentin 1 tab PO BID 04/16/20 Potassium Chloride 20 meq PO QAM 04/16/20 Warfarin Sodium 1 mg PO MOTH@0 04/16/20 Warfarin Sodium [Coumadin 2 mg Tablet] 2 mg PO SUTUWEFRSA@1700 04/16/20 Allergies/Adverse Reactions: No Known Allergies Allergy (Verified 04/15/20 17:44) Review of Systems Constitutional: PRESENT: other - Denies constitutional symptoms Eyes: ABSENT: visual disturbances Ears: ABSENT: hearing changes Cardiovascular: PRESENT: other - History of coronary artery disease, myocardial infarction, CABG Respiratory: PRESENT: cough, dyspnea Gastrointestinal: PRESENT: other - As per HPI Neurological: ABSENT: abnormal gait, abnormal speech, confusion, dizziness, focal weakness, syncope Psychiatric: ABSENT: anxiety, depression, homidical ideation, suicidal ideation Physical Exam Vital Signs: Temp Pulse Resp BP Pulse Ox 97.3 F 65 17 131/53 H 98 04/17/20 15:05 04/17/20 15:05 04/17/20 15:05 04/17/20 15:05 04/17/20 15:05 Intake & Output 04/16/20 04/17/20 04/18/20 06:59 06:59 06:59 Intake Total 1100 Balance 1100 Weight 54.8 kg 56.5 kg General appearance: PRESENT: no acute distress Head exam: PRESENT: normocephalic Eye exam: PRESENT: EOMI Mouth exam: PRESENT: dry mucosa Neck exam: PRESENT: full ROM Respiratory exam: PRESENT: rhonchi, other - Median sternotomy incision well- healed; left subclavian defibrillator site intact Cardiovascular exam: PRESENT: other - Rhythm regular Pulses: PRESENT: normal carotid pulses, normal radial pulses GI/Abdominal exam: PRESENT: other - Abdomen is soft but tender right quadrant, with mild guarding; may be related to a bowel prep Rectal exam: PRESENT: deferred Extremities exam: PRESENT: full ROM Musculoskeletal exam: PRESENT: full ROM Neurological exam: PRESENT: oriented to person, oriented to place, oriented to time, oriented to situation Psychiatric exam: PRESENT: appropriate affect Skin exam: PRESENT: dry Results Laboratory Results: 04/17/20 03:44 04/17/20 03:44 04/16/20 04/17/20 04/17/20 20:00 03:44 03:44 WBC 7.8 7.6 RBC 3.17 L 2.96 L Hgb 10.2 L 9.3 L Hct 29.0 L 27.3 L MCV 91 92 MCH 32.2 31.4 MCHC 35.3 34.2 RDW 15.0 H 15.1 H Plt Count 214 202 Sodium 138.2 Potassium 3.9 Chloride 109 H Carbon Dioxide 25 Anion Gap 4 L BUN 29 H Creatinine 1.25 Est GFR ( Amer) 50 L Glucose 99 Calcium 8.2 L Magnesium 2.4 H Impressions: Abdomen/Pelvis CT 04/16/20 01:16 IMPRESSION: 1. Extensive colonic diverticulosis. No CT evidence for acute diverticulitis. 2. No bowel obstruction or perforation. 3. Possible cholelithiasis 4. Atherosclerosis and other chronic findings as described Assessment & Plan - Diagnosis (1) GI bleeding Qualifiers: GI bleed type/associated pathology: unspecified gastrointestinal hemorrhage type Qualified Code(s): K92.2 - Gastrointestinal hemorrhage, unspecified Is this a current diagnosis for this admission?: Yes Plan: Impression: Acute gastrointestinal bleed in 79-year-old DNR, functional white female with multiple back issues including atrial fibrillation, CAD, pharmacologically anticoagulated. Hemodynamically stable. Last colonoscopy greater than 10 years ago. Recommendations: 1. Keep on clear liquid; continue to hold Coumadin; give 10 mg of AquaMEPHYTON intramuscularly 2. Will initiate bowel prep 3. We will set patient up for upper and lower endoscopy by Dr. Lopez, tomorrow, April 18. The mechanics of the procedure, as well as an explanation of the risk benefits and alternatives were explained to the patient. She expressed her understanding and agreed to proceed. (2) Status post mitral valve replacement with bioprosthetic valve Is this a current diagnosis for this admission?: Yes (3) Chronic anticoagulation Is this a current diagnosis for this admission?: Yes (4) Tobacco abuse Is this a current diagnosis for this admission?: Yes - Time Time Spent: 50 to 70 Minutes Smoking Cessation Education: over 10 minutes Medications reviewed and adjusted accordingly: Yes Anticipated discharge: Home - Inpatient Certification Based on my medical assessment, after consideration of the patient's comorbidities, presenting symptoms, or acuity I expect that the services needed warrant INPATIENT care.: Yes I certify that my determination is in accordance with my understanding of Medicare's requirements for reasonable and necessary INPATIENT services [42 CFR 412.3e].: Yes Medical Necessity: Need For IV Fluids, Need for Pain Control, Need for IV Antibiotics, Need for Surgery
[2020-04-18 03:39] LABS: HEMATOCRIT 24.9 % (36.0-47.0); HEMOGLOBIN 8.6 g/dL (12.0-15.5); MEAN CORPUSCULAR HEMOGLOBIN 31.6 pg (27.0-33.4); MEAN CORPUSCULAR HGB CONC 34.5 g/dL (32.0-36.0); MEAN CORPUSCULAR VOLUME 92 fl (80-97); PLATELET COUNT 195 10^3/uL (150-450); RED BLOOD COUNT 2.72 10^6/uL (3.72-5.28); RED CELL DISTRIBUTION WIDTH 15.4 % (11.5-14.0); WHITE BLOOD COUNT 8.4 10^3/uL (4.0-10.5)
[2020-04-18 03:44] LABS: INTERNATIONAL RATION (INR) 2.19; PROTHROMBIN TIME 24.7 SEC (11.4-15.4)
[2020-04-18 04:16] LABS: ANION GAP 6 (5-19); BLOOD UREA NITROGEN 19 mg/dL (7-20); CALCIUM 7.7 mg/dL (8.4-10.2); CARBON DIOXIDE 26 mmol/L (22-30); CHLORIDE 104 mmol/L (98-107); GLUCOSE 89 mg/dL (75-110); POTASSIUM 3.5 mmol/L (3.6-5.0)
[2020-04-18] MEDS ORDERED: EPINEPHRINE INJ 1 MG/10 ML DISP.SYRIN ONE (07:11)
[2020-04-18] MEDS ORDERED: LIDOCAINE 2% INJ-PF (20 MG/ML) 10 ML AMPUL ONE (07:56)
[2020-04-18] MEDS ORDERED: PROPOFOL INJ 200 MG/20 ML VIAL IV ONE (07:56)
[2020-04-18] MEDS ORDERED: MIDAZOLAM 2 MG/2 ML INJ ONE (07:56)
[2020-04-18] MEDS ORDERED: FENTANYL CITRATE INJ/PF 100 MCG/2 ML AMPUL IV PRN ×2 (08:01)
[2020-04-18] MEDS ORDERED: DIPHENHYDRAMINE HCL 50 MG/ML VIAL IV PRN (08:01)
[2020-04-18] MEDS ORDERED: MEPERIDINE HCL/PF INJ 25 MG/1 ML DISP.SYRIN IV PRN (08:01)
[2020-04-18] MEDS ORDERED: PROMETHAZINE HCL INJ 25 MG/1 ML VIAL IV PRN (08:01)
--- NOTE | 2020-04-18 09:21 | Operative Report ---
Operative Report DATE OF SURGERY: 04/18/20 PREOPERATIVE DIAGNOSIS: 1. Gastrointestinal bleed. 2. Pharmacologic anticoag ulation. 3. COPD POSTOPERATIVE DIAGNOSIS: Same with. 1. External/internal hemorrhoids. 2. Extensive sigmoid diverticulosis with tortuosity. 3. Multiple sigmoid colon a nd rectal polyps. 4. Fundic polyp of the stomach. 5. Hiatal hernia OPERATION: 1. Esophagogastroduodenoscopy. 2. Incomplete colonoscopy to approximately 45 cm from the anal verge SURGEON: CONSTANCE LOPEZ ANESTHESIA: LMAC TISSUE REMOVED OR ALTERED: None COMPLICATIONS: None ESTIMATED BLOOD LOSS: Scant INTRAOPERATIVE FINDINGS: See below PROCEDURE: The patient was taken to the preop holding area to the main operating room where LMAC anesthesia was induced. She was placed in the left lateral decubitus position, oral mouthpiece inserted and appropriate level of LMAC anesthesia induced. Surgical plan and surgical timeout were conducted. The upper endoscopy was performed first. Using a flexible adult upper endoscope,, the scope was advanced to the oropharynx, down the esophagus through the stomach and into the first and second portion of the duodenum. The patient tolerated this well. There was no evidence of tumor, stricture, or bleeding. There was a small gastric polyp in the distal antrum. It was not biopsied. There was a small hiatal hernia identified on antegrade and retrograde advancement of the scope. There was no evidence of esophageal pathology. Again no clots or active bleeding seen. The scope was withdrawn to the patient's oropharynx. She tolerated this portion of procedure well. Of note when patient first arrived in the operating room, her saturations were in the upper 70s on room air. She improved to the low 90s with supplemental oxygen support. The patient was placed in the left lateral cubitus position. Instrumentation set up for colonoscopy. Flexible pediatric colonoscope was utilized for the procedure. A rectal exam was performed by Dr. Lopez. There were internal/external hemorrhoids, collapsed and not thrombosed. The flexible colonoscope was advanced to the anal rectal canal up to approximately 45 cm. There were extensive sigmoid diverticulosis with tortuosity of the colon. Unfortunately despite manipulating the patient in multiple positions, and transabdominal pressure, I was not able to safely advance the scope to this area. During the procedure the patient had an episode of emesis but no aspiration. Given the fact that she was 79, DNR, now having difficulty rating the procedure, I felt that further efforts to advance the scope were unwise. Therefore the procedure was aborted. We did identify multiple small rectal polyps, and a sigmoid colon polyp that may have been close to a centimeter in diameter. There were scattered flakes of old blood throughout the examined portion of the colon. the findings were most consistent with recent bleeding from diverticulosis. No polyps were removed. The scope was withdrawn to the patient's anus; she tolerated the procedure well. Impression: GI bleeding likely from sigmoid diverticulosis; cannot rule out more proximal pathology as source of GI bleed; upper endoscopy essentially normal Plan: 1. Supportive therapy; discussed role of transfusion with patient given hemoglobin of 8.6. 2. Suggest holding Coumadin as patient is in normal sinus rhythm. 3. Complete evaluation of the colon could be pursued with air-contrast barium enema, or another attempt at colonoscopy at a later date. Patient is a DNR, and may not be too enthusiastic about additional colonoscopic evaluations and treatment. 4. The above discussed with Dr. Henrique Ya, hospitalist. Surgery will sign off for now; please reconsult if clinically indicated.
[2020-04-18] MEDS: AMIODARONE HCL 200 MG TABLET PO SCH (10:46)
[2020-04-18] MEDS: ATORVASTATIN CALCIUM 40 MG TABLET PO SCH (10:46)
[2020-04-18] MEDS: DILTIAZEM HCL 30 MG TABLET PO SCH ×2 (10:47→21:07)
[2020-04-18] MEDS: FUROSEMIDE 40 MG TABLET PO SCH ×2 (10:47→17:23)
[2020-04-18] MEDS: PANTOPRAZOLE SODIUM 40 MG VIAL IV SCH ×2 (10:47→21:07)
[2020-04-18] MEDS: POTASSIUM CHLORIDE 10 MEQ TABLET.ER PO SCH (10:47)
[2020-04-18] MEDS: GABAPENTIN 300 MG CAPSULE PO SCH ×2 (10:47→17:23)
--- NOTE | 2020-04-18 16:23 | PDOC PROGRESS REPORT ---
Subjective Progress Note for:: 04/18/20 Subjective:: No adverse events overnight. No new complaints. Her appetite is pretty good. Her vital signs been stable. She is not noticed any new bleeding. Her EGD was unremarkable yesterday, but she had extensive diverticular disease and a polyp was spotted but was unable to be retrieved. Reason For Visit: ACUTE RECTAL BLEEDING,CHRONIC ANTICOAGULATION Physical Exam Vital Signs: Temp Pulse Resp BP Pulse Ox 97.5 F 67 16 103/48 L 100 04/18/20 13:40 04/18/20 15:41 04/18/20 15:41 04/18/20 13:40 04/18/20 15:41 Intake & Output 04/17/20 04/18/20 04/19/20 06:59 06:59 06:59 Intake Total 4000 1200 Output Total 0 Balance 4000 1200 Weight 56.5 kg 57.7 kg General appearance: PRESENT: no acute distress, cooperative, disheveled Cardiovascular exam: PRESENT: RRR, +S1, +S2 Pulses: PRESENT: normal carotid pulses Vascular exam: PRESENT: normal capillary refill GI/Abdominal exam: PRESENT: normal bowel sounds, soft. ABSENT: distended, guarding, rebound, tenderness Extremities exam: ABSENT: clubbing, pedal edema Musculoskeletal exam: PRESENT: ambulatory, normal inspection. ABSENT: deformity Neurological exam: PRESENT: alert, awake, oriented to person, oriented to place, oriented to situation Psychiatric exam: PRESENT: appropriate affect, normal mood Skin exam: PRESENT: dry, warm Results Laboratory Results: 04/18/20 03:03 04/18/20 03:03 04/18/20 04/18/20 03:03 03:03 WBC 8.4 RBC 2.72 L Hgb 8.6 L Hct 24.9 L MCV 92 MCH 31.6 MCHC 34.5 RDW 15.4 H Plt Count 195 Sodium 136.2 L Potassium 3.5 L Chloride 104 Carbon Dioxide 26 Anion Gap 6 BUN 19 Creatinine 1.12 Est GFR ( Amer) 56 L Glucose 89 Calcium 7.7 L Magnesium 2.1 Impressions: Abdomen/Pelvis CT 04/16/20 01:16 IMPRESSION: 1. Extensive colonic diverticulosis. No CT evidence for acute diverticulitis. 2. No bowel obstruction or perforation. 3. Possible cholelithiasis 4. Atherosclerosis and other chronic findings as described Assessment and Plan - Diagnosis (1) GI bleeding Qualifiers: GI bleed type/associated pathology: diverticulosis Qualified Code(s): K57.91 - Diverticulosis of intestine, part unspecified, without perforation or abscess with bleeding Is this a current diagnosis for this admission?: Yes Plan: The likely suspect is a diverticular bleed. This study was technically difficult and the plan is to let her INR continued to trend down and make sure she does not bleed. An outpatient colonoscopy can be arranged at a later date. She did have a polyp in there but it was unable to be snared because of the extensive diverticular disease. I am going to watch her for another day or 2 just to make sure she does not have any signs of any ongoing blood loss. (2) Afib Qualifiers: Atrial fibrillation type: unspecified Qualified Code(s): I48.91 - Unspecified atrial fibrillation Is this a current diagnosis for this admission?: Yes Plan: She is on Cardizem and amiodarone. She is been a regular rhythm on examination. We are planning on holding her anticoagulation indefinitely as long as she maintains a sinus rhythm. She has been in a paced rhythm. (3) Chronic anticoagulation Is this a current diagnosis for this admission?: Yes Plan: The plan for now is to hold this indefinitely as noted previously (4) COPD (chronic obstructive pulmonary disease) Qualifiers: COPD type: emphysema Emphysema type: centrilobular Qualified Code(s): J43.2 - Centrilobular emphysema Is this a current diagnosis for this admission?: Yes Plan: Not acutely exacerbated - Plan Summary Summary: The patient will be admitted to the medical floor where she will receive routine supportive and symptomatic cares. Serial hemoglobin and hematocrit measurements will be obtained. A gastroenterology or surgical consultation will be obtained to arrange for a colonoscopy evaluation after the patient's bleeding has resolved. She will receive Ativan 1 mg IV every 4 hours as needed for anxiety or restlessness. Her usual medications will be continued, as appropriate, once her medication list has been reconciled and verified. Serial INRs will be obtained. Patient will be on a cardiac diet. Smoking cessation is advised and counseled briefly at the bedside. A nicotine replacement patch is available for the patient's use, if desired. - Time Time Spent with patient: 25-34 minutes
[2020-04-19 05:51] LABS: HEMATOCRIT 26.1 % (36.0-47.0); HEMOGLOBIN 8.9 g/dL (12.0-15.5); MEAN CORPUSCULAR HEMOGLOBIN 31.7 pg (27.0-33.4); MEAN CORPUSCULAR HGB CONC 34.2 g/dL (32.0-36.0); MEAN CORPUSCULAR VOLUME 93 fl (80-97); PLATELET COUNT 206 10^3/uL (150-450); RED BLOOD COUNT 2.82 10^6/uL (3.72-5.28); RED CELL DISTRIBUTION WIDTH 15.2 % (11.5-14.0); WHITE BLOOD COUNT 10.2 10^3/uL (4.0-10.5)
[2020-04-19 05:59] LABS: INTERNATIONAL RATION (INR) 1.82; PROTHROMBIN TIME 21.3 SEC (11.4-15.4)
[2020-04-19 06:18] LABS: ANION GAP 5 (5-19); BLOOD UREA NITROGEN 14 mg/dL (7-20); CALCIUM 7.8 mg/dL (8.4-10.2); CARBON DIOXIDE 27 mmol/L (22-30); CHLORIDE 105 mmol/L (98-107); GLUCOSE 92 mg/dL (75-110); POTASSIUM 3.6 mmol/L (3.6-5.0)
[2020-04-19] MEDS: AMIODARONE HCL 200 MG TABLET PO SCH (08:05)
[2020-04-19] MEDS: ATORVASTATIN CALCIUM 40 MG TABLET PO SCH (08:05)
[2020-04-19] MEDS: POTASSIUM CHLORIDE 10 MEQ TABLET.ER PO SCH (09:26)
[2020-04-19] MEDS: DILTIAZEM HCL 30 MG TABLET PO SCH ×2 (09:26→22:11)
[2020-04-19] MEDS: GABAPENTIN 300 MG CAPSULE PO SCH ×2 (09:26→17:18)
[2020-04-19] MEDS: PANTOPRAZOLE SODIUM 40 MG VIAL IV SCH ×2 (09:27→22:12)
[2020-04-19] MEDS: ACETAMINOPHEN 325 MG TABLET PO PRN (15:49)
--- NOTE | 2020-04-19 16:36 | PDOC PROGRESS REPORT ---
Subjective Progress Note for:: 04/19/20 Subjective:: No adverse events overnight. No new complaints. Vital signs been stable. Eating and drinking without difficulty. No abdominal pain. Reason For Visit: ACUTE RECTAL BLEEDING,CHRONIC ANTICOAGULATION Physical Exam Vital Signs: Temp Pulse Resp BP Pulse Ox 101.0 F H 76 18 98/51 L 93 04/19/20 15:40 04/19/20 15:40 04/19/20 15:40 04/19/20 15:40 04/19/20 16:06 Intake & Output 04/18/20 04/19/20 04/20/20 06:59 06:59 06:59 Intake Total 4000 3027 Output Total 0 Balance 4000 3027 Weight 57.7 kg 56.5 kg 56.5 kg General appearance: PRESENT: no acute distress, cooperative, disheveled Cardiovascular exam: PRESENT: RRR, +S1, +S2 Pulses: PRESENT: normal carotid pulses Vascular exam: PRESENT: normal capillary refill GI/Abdominal exam: PRESENT: normal bowel sounds, soft. ABSENT: distended, guarding, rebound, tenderness Extremities exam: ABSENT: clubbing, pedal edema Musculoskeletal exam: PRESENT: ambulatory, normal inspection. ABSENT: deformity Neurological exam: PRESENT: alert, awake, oriented to person, oriented to place, oriented to situation Psychiatric exam: PRESENT: appropriate affect, normal mood Skin exam: PRESENT: dry, warm Results Laboratory Results: 04/19/20 04:15 04/19/20 15:12 04/19/20 04/19/20 04/19/20 04:15 04:15 15:12 WBC 10.2 RBC 2.82 L Hgb 8.9 L Hct 26.1 L MCV 93 MCH 31.7 MCHC 34.2 RDW 15.2 H Plt Count 206 Sodium 137.4 Potassium 3.6 3.8 Chloride 105 Carbon Dioxide 27 Anion Gap 5 BUN 14 Creatinine 1.14 Est GFR ( Amer) 55 L Glucose 92 Calcium 7.8 L Magnesium 2.0 Impressions: Abdomen/Pelvis CT 04/16/20 01:16 IMPRESSION: 1. Extensive colonic diverticulosis. No CT evidence for acute diverticulitis. 2. No bowel obstruction or perforation. 3. Possible cholelithiasis 4. Atherosclerosis and other chronic findings as described Assessment and Plan - Diagnosis (1) GI bleeding Qualifiers: GI bleed type/associated pathology: diverticulosis Qualified Code(s): K57.91 - Diverticulosis of intestine, part unspecified, without perforation or abscess with bleeding Is this a current diagnosis for this admission?: Yes Plan: The likely suspect is a diverticular bleed. This study was technically difficult and the plan is to let her INR continued to trend down and make sure she does not bleed. An outpatient colonoscopy can be arranged at a later date. She did have a polyp in there but it was unable to be snared because of the extensive diverticular disease. I am going to watch her for another day or 2 just to make sure she does not have any signs of any ongoing blood loss. (2) Afib Qualifiers: Atrial fibrillation type: unspecified Qualified Code(s): I48.91 - Unspecified atrial fibrillation Is this a current diagnosis for this admission?: Yes Plan: She is on Cardizem and amiodarone. She is been a regular rhythm on examination. We are planning on holding her anticoagulation indefinitely as long as she maintains a sinus rhythm. She has been in a paced rhythm. (3) Chronic anticoagulation Is this a current diagnosis for this admission?: Yes Plan: The plan for now is to hold this indefinitely as noted previously (4) COPD (chronic obstructive pulmonary disease) Qualifiers: COPD type: emphysema Emphysema type: centrilobular Qualified Code(s): J43.2 - Centrilobular emphysema Is this a current diagnosis for this admission?: Yes Plan: Not acutely exacerbated (5) Acute blood loss anemia Is this a current diagnosis for this admission?: Yes Plan: Hemoglobin was a little bit better today than yesterday. Looks like her blood loss has abated. Watching her for another day or so to ensure stability prior to discharge. - Plan Summary Summary: The patient will be admitted to the medical floor where she will receive routine supportive and symptomatic cares. Serial hemoglobin and hematocrit measurements will be obtained. A gastroenterology or surgical consultation will be obtained to arrange for a colonoscopy evaluation after the patient's bleeding has resolved. She will receive Ativan 1 mg IV every 4 hours as needed for anxiety or restlessness. Her usual medications will be continued, as appropriate, once her medication list has been reconciled and verified. Serial INRs will be obtained. Patient will be on a cardiac diet. Smoking cessation is advised and counseled briefly at the bedside. A nicotine replacement patch is available for the patient's use, if desired. - Time Time Spent with patient: 15-24 minutes
--- NOTE | 2020-04-19 17:30 | EKG REPORT ---
SEVERITY:- ABNORMAL ECG - ATRIAL-PACED RHYTHM RIGHT BUNDLE BRANCH BLOCK : Confirmed by: Tia Solorzano MD 19-Apr-2020 17:29:15
--- NOTE | 2020-04-19 19:44 | CDI QUERY ---
CDI Query CDI Review: Dear Provider: To better reflect your patients severity of illness, morbidity, and resource utilization Please specify and document in the Progress Notes and Discharge Summary if you are monitoring / treating / evaluating any of the following conditions: Query Clinical indicators Please clarify if the atrial fib can be further specified: Paroxysmal atrial fibrillation Persistent atrial fibrillation Chronic / Permanent atrial fibrillation Other Undetermined (2) Afib Qualifiers: Atrial fibrillation type: unspecified Qualified Code(s): I48.91 - Unspecified atrial fibrillation Is this a current diagnosis for this admission?: Yes Plan: She is on Cardizem and amiodarone. She is been a regular rhythm on examination. We are planning on holding her anticoagulation indefinitely as long as she maintains a sinus rhythm. She has been in a paced rhythm. The terms probable, suspected, likely, possible or still to be ruled out may be used if you are unable to determine the exact nature of a condition. Thank you for your consideration, Clinical Documentation Physician Advisor MAU Benz
[2020-04-20 04:02] LABS: INTERNATIONAL RATION (INR) 1.83; PROTHROMBIN TIME 21.4 SEC (11.4-15.4)
[2020-04-20] MEDS: AMIODARONE HCL 200 MG TABLET PO SCH (09:10)
[2020-04-20] MEDS: POTASSIUM CHLORIDE 10 MEQ TABLET.ER PO SCH (09:10)
[2020-04-20] MEDS: DILTIAZEM HCL 30 MG TABLET PO SCH ×2 (09:10→23:30)
[2020-04-20] MEDS: GABAPENTIN 300 MG CAPSULE PO SCH ×2 (09:11→17:03)
[2020-04-20] MEDS: ATORVASTATIN CALCIUM 40 MG TABLET PO SCH (09:11)
[2020-04-20] MEDS: PANTOPRAZOLE SODIUM 40 MG VIAL IV SCH (09:12)
[2020-04-20 11:00] LABS: HEMATOCRIT 28.1 % (36.0-47.0); HEMOGLOBIN 9.4 g/dL (12.0-15.5); MEAN CORPUSCULAR HEMOGLOBIN 31.2 pg (27.0-33.4); MEAN CORPUSCULAR HGB CONC 33.4 g/dL (32.0-36.0); MEAN CORPUSCULAR VOLUME 94 fl (80-97); PLATELET COUNT 239 10^3/uL (150-450); RED CELL DISTRIBUTION WIDTH 15.8 % (11.5-14.0); WHITE BLOOD COUNT 12.2 10^3/uL (4.0-10.5)
--- NOTE | 2020-04-20 14:02 | RADIOLOGY REPORT (SQ) ---
EXAM DESCRIPTION: CHEST SINGLE VIEW IMAGES COMPLETED DATE/TIME: 04/20/2020 12:39 pm REASON FOR STUDY: hypoxia COMPARISON: 07/01/2018 NUMBER OF VIEWS: One view. TECHNIQUE: Single frontal radiographic image of the chest acquired. LIMITATIONS: None. FINDINGS: LUNGS AND PLEURA: Diffuse airspace disease with relative sparing of the upper lobes. Trac e bilateral effusions. MEDIASTINUM AND HEART: Stable heart size and mediastinal structures. SUPPORT DEVICES: Appropriate location without change. BONY STRUCTURES: No acute findings. HARDWARE: None. OTHER: No other significant finding. IMPRESSION: CHF. Reading location - IP/workstation name: [email or web address]
[2020-04-20] MEDS: ACETAMINOPHEN 325 MG TABLET PO PRN (15:37)
[2020-04-20] MEDS ORDERED: VANCOMYCIN HCL 0 MG in DEXTROSE 5%-WATER 250 ML IV NR (16:30)
[2020-04-20] MEDS: METHYLPREDNISOLONE INJ 40 MG/1 ML SDV IV SCH (16:47)
--- NOTE | 2020-04-20 17:32 | PDOC PROGRESS REPORT ---
Subjective Progress Note for:: 04/20/20 Subjective:: Her oxygen requirement has increased. She was on 5 L and said she felt fine. She does not use oxygen at home. She has no history of COPD. She had a fever today. Her white blood cell count is up a little bit. Chest x-ray shows bilateral opacities. She was COVID tested a few days ago and was negative. Reason For Visit: ACUTE RECTAL BLEEDING,CHRONIC ANTICOAGULATION Physical Exam Vital Signs: Temp Pulse Resp BP Pulse Ox 99.8 F 79 20 118/56 L 89 L 04/20/20 16:15 04/20/20 15:28 04/20/20 15:28 04/20/20 15:28 04/20/20 15:28 Intake & Output 04/19/20 04/20/20 04/21/20 06:59 06:59 06:59 Intake Total 3027 Output Total 0 Balance 3027 Weight 56.5 kg 58.3 kg General appearance: PRESENT: no acute distress, cooperative, disheveled Respiratory: PRESENT: Bibasilar crackles, normal inspiratory effort, no accessory muscle use, no wheezes, no rhonchi Cardiovascular exam: PRESENT: RRR, +S1, +S2 Pulses: PRESENT: normal carotid pulses Vascular exam: PRESENT: normal capillary refill GI/Abdominal exam: PRESENT: normal bowel sounds, soft. ABSENT: distended, guarding, rebound, tenderness Extremities exam: ABSENT: clubbing, pedal edema Musculoskeletal exam: PRESENT: ambulatory, normal inspection. ABSENT: deformity Neurological exam: PRESENT: alert, awake, oriented to person, oriented to place, oriented to situation Psychiatric exam: PRESENT: appropriate affect, normal mood Skin exam: PRESENT: dry, warm Results Laboratory Results: 04/20/20 10:35 04/19/20 15:12 04/20/20 10:35 WBC 12.2 H RBC 3.00 L Hgb 9.4 L Hct 28.1 L MCV 94 MCH 31.2 MCHC 33.4 RDW 15.8 H Plt Count 239 Impressions: Abdomen/Pelvis CT 04/16/20 01:16 IMPRESSION: 1. Extensive colonic diverticulosis. No CT evidence for acute diverticulitis. 2. No bowel obstruction or perforation. 3. Possible cholelithiasis 4. Atherosclerosis and other chronic findings as described Chest X-Ray 04/20/20 00:00 IMPRESSION: CHF. Assessment and Plan - Diagnosis (1) GI bleeding Qualifiers: GI bleed type/associated pathology: diverticulosis Qualified Code(s): K57.91 - Diverticulosis of intestine, part unspecified, without perforation or abscess with bleeding Is this a current diagnosis for this admission?: Yes Plan: The likely suspect is a diverticular bleed. This study was technically difficult and the plan is to let her INR continued to trend down and make sure she does not bleed. An outpatient colonoscopy can be arranged at a later date. She did have a polyp in there but it was unable to be snared because of the extensive diverticular disease. Bleeding seems to have stopped. (2) Afib Qualifiers: Atrial fibrillation type: permanent Qualified Code(s): I48.21 - Permanent atrial fibrillation Is this a current diagnosis for this admission?: Yes Plan: She is on Cardizem and amiodarone. She is been a regular rhythm on examination. We are planning on holding her anticoagulation indefinitely as long as she maintains a sinus rhythm. She has been in a paced rhythm. (3) Chronic anticoagulation Is this a current diagnosis for this admission?: Yes Plan: The plan for now is to hold this indefinitely as noted previously (4) COPD (chronic obstructive pulmonary disease) Qualifiers: COPD type: emphysema Emphysema type: centrilobular Qualified Code(s): J43.2 - Centrilobular emphysema Is this a current diagnosis for this admission?: Yes Plan: Not acutely exacerbated. She does not take any medications for this at home. (5) Acute blood loss anemia Is this a current diagnosis for this admission?: Yes Plan: Hemoglobin was a little bit better today than yesterday, now above 9. As she continues to eat a regular diet she should continue to have an increase in her hemoglobin. (6) Acute respiratory failure with hypoxia Is this a current diagnosis for this admission?: Yes Plan: Supplemental O2 to maintain SPO2 greater than 90% (7) Sepsis Qualifiers: Sepsis type: sepsis due to unspecified organism Sepsis acute organ dysfunction status: with acute organ dysfunction Severe sepsis acute organ dysfunction type: acute respiratory failure Acute respiratory failure type: with hypoxia Severe sepsis shock status: without septic shock Qualified Code(s): A41.9 - Sepsis, unspecified organism; R65.20 - Severe sepsis without septic shock; J96.01 - Acute respiratory failure with hypoxia Is this a current diagnosis for this admission?: Yes Plan: Empiric antibiotics and steroids started. Believed to be due to healthcare associated pneumonia. She was tested negative for coronavirus a few days ago. (8) HCAP (healthcare-associated pneumonia) Is this a current diagnosis for this admission?: Yes Plan: Empirically started on vancomycin and meropenem. Will obtain blood cultures. - Plan Summary Summary: The patient will be admitted to the medical floor where she will receive routine supportive and symptomatic cares. Serial hemoglobin and hematocrit measurements will be obtained. A gastroenterology or surgical consultation will be obtained to arrange for a colonoscopy evaluation after the patient's bleeding has reso lved. She will receive Ativan 1 mg IV every 4 hours as needed for anxiety or restlessness. Her usual medications will be continued, as appropriate, once her medication list has been reconciled and verified. Serial INRs will be obtained. Patient will be on a cardiac diet. Smoking cessation is advised and counseled briefly at the bedside. A nicotine replacement patch is available for the vicentae nt's use, if desired. - Time Time Spent with patient: 25-34 minutes
[2020-04-20] MEDS: MEROPENEM 1 GM in NORMAL SALINE 50 ML IV SCH (18:36)
[2020-04-20] MEDS ORDERED: VANCOMYCIN HCL 1,000 MG in DEXTROSE 5%-WATER 250 ML IV ONE (22:00)
[2020-04-21] MEDS: PANTOPRAZOLE SODIUM 40 MG VIAL IV SCH ×3 (00:50→21:49)
[2020-04-21 03:26] LABS: INTERNATIONAL RATION (INR) 1.86; PROTHROMBIN TIME 21.6 SEC (11.4-15.4)
[2020-04-21] MEDS: METHYLPREDNISOLONE INJ 40 MG/1 ML SDV IV SCH ×3 (06:41→17:19)
--- NOTE | 2020-04-21 07:59 | PDOC PROGRESS REPORT ---
Subjective Progress Note for:: 04/21/20 Subjective:: The patient is stable this morning. She does remain on oxygen therapy. She had several complaints but none clinically related to her medical status. Reason For Visit: ACUTE RECTAL BLEEDING,CHRONIC ANTICOAGULATION Physical Exam Vital Signs: Temp Pulse Resp BP Pulse Ox 98.3 F 66 18 116/55 L 94 04/21/20 03:47 04/21/20 03:47 04/21/20 03:47 04/21/20 03:47 04/21/20 03:47 Intake & Output 04/20/20 04/21/20 04/22/20 06:59 06:59 06:59 Intake Total 1450 50 Output Total 600 Balance 850 50 Weight 58.3 kg 58.3 kg General appearance: PRESENT: no acute distress, cooperative, well-developed Head exam: PRESENT: atraumatic, normocephalic Ear exam: PRESENT: normal external ear exam. ABSENT: bleeding, drainage Mouth exam: PRESENT: moist, tongue midline Respiratory exam: PRESENT: rales - Faint rales, symmetrical, unlabored, other - Decreased inspiratory phase. ABSENT: rhonchi, tachypnea, wheezes Cardiovascular exam: PRESENT: RRR, +S1, +S2 GI/Abdominal exam: PRESENT: normal bowel sounds, soft. ABSENT: distended, guarding, tenderness Rectal exam: PRESENT: deferred Neurological exam: PRESENT: alert, awake, oriented to person, oriented to place, oriented to time, oriented to situation, CN II-XII grossly intact Psychiatric exam: PRESENT: appropriate affect. ABSENT: agitated, anxious Focused psych exam: ABSENT: delusional, paranoid, restlessness Skin exam: PRESENT: dry, warm. ABSENT: rash Results Laboratory Results: 04/20/20 10:35 04/19/20 15:12 04/20/20 10:35 WBC 12.2 H RBC 3.00 L Hgb 9.4 L Hct 28.1 L MCV 94 MCH 31.2 MCHC 33.4 RDW 15.8 H Plt Count 239 Impressions: Abdomen/Pelvis CT 04/16/20 01:16 IMPRESSION: 1. Extensive colonic diverticulosis. No CT evidence for acute diverticulitis. 2. No bowel obstruction or perforation. 3. Possible cholelithiasis 4. Atherosclerosis and other chronic findings as described Chest X-Ray 04/20/20 00:00 IMPRESSION: CHF. Assessment and Plan - Diagnosis (1) GI bleeding Qualifiers: GI bleed type/associated pathology: diverticulosis Qualified Code(s): K57.91 - Diverticulosis of intestine, part unspecified, without perforation or abscess with bleeding Is this a current diagnosis for this admission?: Yes Plan: The likely suspect is a diverticular bleed. This study was technically difficult and the plan is to let her INR continued to trend down and make sure she does not bleed. An outpatient colonoscopy can be arranged at a later date. She did have a polyp in there but it was unable to be snared because of the extensive diverticular disease. Bleeding seems to have stopped. 04/21/2020 Diverticular bleed. Hemoglobin is improving. Continue to hold anticoagulation. Ferrous sulfate being administered (2) Acute respiratory failure with hypoxia Is this a current diagnosis for this admission?: Yes Plan: Supplemental O2 to maintain SPO2 greater than 90% April 21, 2020 Still requiring 5 L nasal cannula. I will resume part of her furosemide and an echocardiogram in 2018 did not suggest systolic or diastolic failure. We will continue broad-spectrum antibiotics. (3) Longstanding persistent atrial fibrillation Is this a current diagnosis for this admission?: Yes Plan: 04/21/2020 Continue amiodarone as diltiazem. Pulmonary warfarin due to GI bleeding. (4) HCAP (healthcare-associated pneumonia) Is this a current diagnosis for this admission?: Yes Plan: Empirically started on vancomycin and meropenem. Will obtain blood cultures. 04/21/2020 Covid-19 testing is pending. (5) Acute blood loss anemia Is this a current diagnosis for this admission?: Yes Plan: Hemoglobin was a little bit better today than yesterday, now above 9. As she continues to eat a regular diet she should continue to have an increase in her hemoglobin. 04/21/2020 Hemoglobin is improving. Continue iron supplement. Recheck labs tomorrow. (6) COPD (chronic obstructive pulmonary disease) Qualifiers: COPD type: emphysema Emphysema type: centrilobular Qualified Code(s): J43.2 - Centrilobular emphysema Is this a current diagnosis for this admission?: Yes Plan: Not acutely exacerbated. She does not take any medications for this at home. 04/21/2020 Not on inhaler therapy at home. Weaning the Solu-Medrol. Will taper oxygen to off as tolerated. We may need to initiate scheduled nebulizer treatments. (7) Sepsis Qualifiers: Sepsis type: sepsis due to unspecified organism Sepsis acute organ dysfunction status: with acute organ dysfunction Severe sepsis acute organ dysfunction type: acute respiratory failure Acute respiratory failure type: with hypoxia Severe sepsis shock status: without septic shock Qualified Code(s): A41.9 - Sepsis, unspecified organism; R65.20 - Severe sepsis without septic shock; J96.01 - Acute respiratory failure with hypoxia Is this a current diagnosis for this admission?: Yes Plan: Empiric antibiotics and steroids started. Believed to be due to healthcare associated pneumonia. She was tested negative for coronavirus a few days ago. 04/21/2020 Resolved (8) Chronic anticoagulation Is this a current diagnosis for this admission?: Yes Plan: The plan for now is to hold this indefinitely as noted previously 04/21/2020 On hold as noted above - Plan Summary Summary: The patient will be admitted to the medical floor where she will receive routine supportive and symptomatic cares. Serial hemoglobin and hematocrit measurements will be obtained. A gastroenterology or surgical consultation will be obtained to arrange for a colonoscopy evaluation after the patient's bleeding has resolved. She will receive Ativan 1 mg IV every 4 hours as needed for anxiety or restlessness. Her usual medications will be continued, as appropriate, once her medication list has been reconciled and verified. Serial INRs will be obtained. Patient will be on a cardiac diet. Smoking cessation is advised and counseled briefly at the bedside. A nicotine replacement patch is available for the patient's use, if desired. - Time Time Spent with patient: 15-24 minutes - Including bedside discussions with the patient with her grandson on speaker phone Medications reviewed and adjusted accordingly: Yes Anticipated discharge: Home
[2020-04-21] MEDS: MEROPENEM 1 GM in NORMAL SALINE 50 ML IV SCH ×2 (08:35→17:55)
[2020-04-21] MEDS: GABAPENTIN 300 MG CAPSULE PO SCH ×2 (10:51→17:19)
[2020-04-21] MEDS: ASCORBIC ACID 500 MG TABLET PO SCH ×2 (10:51→17:19)
[2020-04-21] MEDS: POTASSIUM CHLORIDE 10 MEQ TABLET.ER PO SCH (10:51)
[2020-04-21] MEDS: DILTIAZEM HCL 30 MG TABLET PO SCH ×2 (10:51→21:49)
[2020-04-21] MEDS: ATORVASTATIN CALCIUM 40 MG TABLET PO SCH (10:51)
[2020-04-21] MEDS: ZINC SULFATE 220 MG CAPSULE PO SCH (10:51)
[2020-04-21] MEDS: FERROUS SULFATE 325 MG TABLET PO SCH ×2 (10:52→17:19)
[2020-04-21] MEDS: AMIODARONE HCL 200 MG TABLET PO SCH (10:52)
[2020-04-21] MEDS: LEVALBUTEROL HCL NEB 1.25 MG/3 ML AMPUL NEB PRN ×2 (21:13→23:51)
[2020-04-21] MEDS: VANCOMYCIN HCL 500 MG in DEXTROSE 5%-WATER 100 ML IV SCH (21:51)
[2020-04-21] MEDS ORDERED: MORPHINE SULFATE 10 MG/ML INJ ONE (22:11)
[2020-04-21] MEDS ORDERED: MORPHINE SULFATE 10 MG/ML INJ IV ONE (23:00)
[2020-04-22 00:06] LABS: ARTERIAL BLOOD BASE EXCESS -4.9 mmol/L; ARTERIAL BLOOD H2CO3 1.41 mmol/L (1.05-1.35); ARTERIAL BLOOD HCO3 21.8 mmol/L (20-24); ARTERIAL BLOOD O2 SATURATION 73.7 % (94-98); ARTERIAL BLOOD PH 7.28 (7.35-7.45); ARTERIAL BLOOD PO2 43.7 mmHg (80-100); ARTERIAL BLOOD TOTAL CO2 23.2 mmol/L (21-25)
[2020-04-22 00:07] LABS: ARTERIAL BLOOD FIO2 100%
--- NOTE | 2020-04-22 01:06 | RADIOLOGY REPORT (SQ) ---
EXAM DESCRIPTION: XR CHEST 1 VIEW COMPLETED DATE/TME: 04/21/2020 00:00 CLINICAL HISTORY: 79 years Female, shortness of breath COMPARISON: 2 days prior. NUMBER OF VIEWS/TECHNIQUE: 1/AP FINDINGS: Moderate mixed airspace and interstitial opacities. Atherosclerotic vascular disease. Cardiac/mediastinal hardware/clips. Left cardiac stimulator with leads. Limitation: Leads/hardware/artifact. Normal cardiac silhouette size. No pneumothorax. Stable bony thorax. IMPRESSION: Moderate mixed airspace and interstitial opacities. Interval worsening.
[2020-04-22] MEDS ORDERED: FUROSEMIDE INJ/PF 20 MG/2 ML SDV ONE (01:07)
[2020-04-22] MEDS: METHYLPREDNISOLONE INJ 40 MG/1 ML SDV IV SCH (01:11)
[2020-04-22] MEDS ORDERED: FUROSEMIDE INJ/PF 20 MG/2 ML SDV IV ONE (01:30)
[2020-04-22] MEDS ORDERED: DEXAMETHASONE SOD PHOSPHATE INJ 4 MG/1 ML VIAL IV SCH (01:45)
[2020-04-22] MEDS ORDERED: DEXAMETHASONE SOD PHOSPHATE INJ 4 MG/1 ML VIAL ONE (02:17)
[2020-04-22] MEDS ORDERED: DEXAMETHASONE SOD PHOSPHATE INJ 4 MG/1 ML VIAL IV ONE (02:30)
[2020-04-22 02:36] LABS: HEMATOCRIT 28.6 % (36.0-47.0); HEMOGLOBIN 9.7 g/dL (12.0-15.5); MEAN CORPUSCULAR HEMOGLOBIN 31.7 pg (27.0-33.4); MEAN CORPUSCULAR HGB CONC 33.8 g/dL (32.0-36.0); MEAN CORPUSCULAR VOLUME 94 fl (80-97); PLATELET COUNT 306 10^3/uL (150-450); RED BLOOD COUNT 3.05 10^6/uL (3.72-5.28); RED CELL DISTRIBUTION WIDTH 16.1 % (11.5-14.0)
[2020-04-22 02:37] LABS: INTERNATIONAL RATION (INR) 1.61; PROTHROMBIN TIME 19.3 SEC (11.4-15.4)
[2020-04-22 02:42] LABS: WHITE BLOOD COUNT 29.6 10^3/uL (4.0-10.5)
[2020-04-22 02:49] LABS: ALBUMIN 3.1 g/dL (3.5-5.0); ALKALINE PHOSPHATASE 94 U/L (38-126); ANION GAP 6 (5-19); ASPARTATE AMINO TRANSFERASE 56 U/L (14-36); BILIRUBIN,TOTAL 0.5 mg/dL (0.2-1.3); BLOOD UREA NITROGEN 27 mg/dL (7-20); CALCIUM 8.5 mg/dL (8.4-10.2); CARBON DIOXIDE 23 mmol/L (22-30); CHLORIDE 109 mmol/L (98-107); GLUCOSE 155 mg/dL (75-110); POTASSIUM 4.9 mmol/L (3.6-5.0); TOTAL PROTEIN 6.3 g/dL (6.3-8.2)
[2020-04-22 02:55] LABS: ABSOLUTE LYMPHOCYTES# (MANUAL) 0.9 10^3/uL (0.5-4.7); ABSOLUTE MONOCYTES # (MANUAL) 0.9 10^3/uL (0.1-1.4); BASOPHILS % (MANUAL) 0 % (0-2); EOSINOPHILS % (MANUAL) 0 % (0-6); LYMPHOCYTES % (MANUAL) 3 % (13-45); MONOCYTES % (MANUAL) 3 % (3-13); SEGMENTED NEUTROPHILS % (MAN) 94 % (42-78); TOTAL CELLS COUNTED 100
[2020-04-22 02:56] LABS: ANISOCYTOSIS 1+; BURR CELLS 1+; PLATELET COMMENT ADEQUATE; POIKILOCYTOSIS 1+; TOXIC GRANULATION SLIGHT
[2020-04-22 04:55] LABS: VANCOMYCIN,TROUGH 12.2 ug/mL (5.0-20.0)
[2020-04-22] MEDS: CEFEPIME 1 GM/D5W RTU 1 GM/50 ML RTUPB IV SCH ×3 (05:23→22:13)
[2020-04-22] MEDS: LEVALBUTEROL HCL NEB 1.25 MG/3 ML AMPUL NEB PRN (08:11)
[2020-04-22] MEDS: AMIODARONE HCL 200 MG TABLET PO SCH (09:21)
[2020-04-22] MEDS: ATORVASTATIN CALCIUM 40 MG TABLET PO SCH (09:21)
[2020-04-22] MEDS: GABAPENTIN 300 MG CAPSULE PO SCH ×2 (09:22→18:26)
[2020-04-22] MEDS: ZINC SULFATE 220 MG CAPSULE PO SCH (09:22)
[2020-04-22] MEDS: FERROUS SULFATE 325 MG TABLET PO SCH ×2 (09:22→18:25)
[2020-04-22] MEDS: ASCORBIC ACID 500 MG TABLET PO SCH ×2 (09:22→18:26)
[2020-04-22] MEDS: DILTIAZEM HCL 30 MG TABLET PO SCH ×2 (09:22→22:12)
[2020-04-22] MEDS: POTASSIUM CHLORIDE 10 MEQ TABLET.ER PO SCH (09:22)
--- NOTE | 2020-04-22 09:37 | PDOC PROGRESS REPORT ---
Subjective Progress Note for:: 04/22/20 Subjective:: 04/22/2020 79-year-old female admitted for acute GI bleed. Coumadin is on hold. Hemoglobin is stable around 9.7. Patient is on Coumadin for anticoagulation. Patient developed acute respiratory failure with hypoxia patient is now 100% oxygen. On BiPAP. CODE STATUS is DNR. WBC count is 29,000 today chest x-ray looks worse. CT chest was requested but unable to do so because patient is on 100% oxygen. COVID test is pending at this time. Blood cultures are negative so far. Currently on IV cefepime and vancomycin. Overall prognosis poor condition is critical. Discussed the plan with the grandson he does not want comfort care measures at this time. Reason For Visit: ACUTE RECTAL BLEEDING,CHRONIC ANTICOAGULATION Physical Exam Vital Signs: Temp Pulse Resp BP Pulse Ox 98.0 F 68 19 131/56 H 96 04/22/20 00:02 04/22/20 08:11 04/22/20 08:11 04/22/20 00:02 04/22/20 08:11 Intake & Output 04/21/20 04/22/20 04/23/20 06:59 06:59 06:59 Intake Total 1450 990 Output Total 600 1050 Balance 850 -60 Weight 58.3 kg 55.9 kg General appearance: PRESENT: disheveled, other - Cachectic female on BiPAP. Head exam: PRESENT: atraumatic Eye exam: PRESENT: conjunctiva pale, PERRLA Mouth exam: PRESENT: moist, tongue midline Neck exam: ABSENT: carotid bruit, JVD, lymphadenopathy, thyromegaly Respiratory exam: PRESENT: decreased breath sounds, other - bilateral air entry was severely decreased no wheezing on BiPAP. Vascular exam: PRESENT: normal capillary refill GI/Abdominal exam: PRESENT: normal bowel sounds, soft. ABSENT: distended, guarding, mass, organolmegaly, rebound, tenderness Rectal exam: PRESENT: deferred Extremities exam: PRESENT: full ROM. ABSENT: calf tenderness, clubbing, pedal edema Neurological exam: PRESENT: CN II-XII grossly intact - pt is responding to the verbal commands. Nodding her head., other Psychiatric exam: PRESENT: appropriate affect, normal mood. ABSENT: homicidal ideation, suicidal ideation Skin exam: PRESENT: dry, intact, warm. ABSENT: cyanosis, rash Results Laboratory Results: 04/22/20 02:17 04/22/20 02:17 04/21/20 04/22/20 04/22/20 23:52 02:17 02:17 WBC 29.6 H D RBC 3.05 L Hgb 9.7 L Hct 28.6 L MCV 94 MCH 31.7 MCHC 33.8 RDW 16.1 H Plt Count 306 Seg Neutrophils % Not Reportable Carbonic Acid 1.41 H HCO3/H2CO3 Ratio 15:1 ABG pH 7.28 L ABG pCO2 47.0 H ABG pO2 43.7 L ABG HCO3 21.8 ABG O2 Saturation 73.7 L ABG Base Excess -4.9 FiO2 100% Sodium 138.4 Potassium 4.9 Chloride 109 H Carbon Dioxide 23 Anion Gap 6 BUN 27 H Creatinine 1.42 H Est GFR ( Amer) 43 L Glucose 155 H Calcium 8.5 Magnesium 2.3 Total Bilirubin 0.5 AST 56 H Alkaline Phosphatase 94 Total Protein 6.3 Albumin 3.1 L 04/22/20 02:17 NT-Pro-B Natriuret Pep 9620 H Impressions: Abdomen/Pelvis CT 04/16/20 01:16 IMPRESSION: 1. Extensive colonic diverticulosis. No CT evidence for acute diverticulitis. 2. No bowel obstruction or perforation. 3. Possible cholelithiasis 4. Atherosclerosis and other chronic findings as described Chest X-Ray 04/21/20 00:00 IMPRESSION: Moderate mixed airspace and interstitial opacities. Interval worsening. Assessment and Plan - Diagnosis (1) GI bleeding Qualifiers: GI bleed type/associated pathology: diverticulosis Qualified Code(s): K57.91 - Diverticulosis of intestine, part unspecified, without perforation or abscess with bleeding Is this a current diagnosis for this admission?: Yes Plan: The likely suspect is a diverticular bleed. This study was technically difficult and the plan is to let her INR continued to trend down and make sure she does not bleed. An outpatient colonoscopy can be arranged at a later date. She did have a polyp in there but it was unable to be snared because of the extensive diverticular disease. Bleeding seems to have stopped. 04/21/2020 Diverticular bleed. Hemoglobin is improving. Continue to hold anticoagulation. Ferrous sulfate being administered 04/22/2020-hemoglobin is stable around 9.7. Coumadin on hold. Receiving iron supplementations. plan is to repeat the labs tomorrow. (2) Acute respiratory failure with hypoxia Is this a current diagnosis for this admission?: Yes Plan: Supplemental O2 to maintain SPO2 greater than 90% April 21, 2020 Still requiring 5 L nasal cannula. I will resume part of her furosemide and an echocardiogram in 2018 did not suggest systolic or diastolic failure. We will continue broad-spectrum antibiotics. 04/22/2020-patient is on 100% oxygen and BiPAP. Chest x-ray is worsening. White cell count is 29,000. Presently on IV cefepime and IV vancomycin. CODE STATUS is DNR/DNI. Cardiogram is requested. blood Cultures are negative so far. Overall prognosis poor condition is critical. ABG done last night pH is 7.28/PCO2 47/PO2 43 oxygen saturation is 73% on 100% oxygen. (3) Longstanding persistent atrial fibrillation Is this a current diagnosis for this admission?: Yes Plan: 04/21/2020 Continue amiodarone as diltiazem. Pulmonary warfarin due to GI bleeding. 04/22/20-patient's heart rate in the 80s. To continue amiodarone and diltiazem. (4) HCAP (healthcare-associated pneumonia) Is this a current diagnosis for this admission?: Yes Plan: Empirically started on vancomycin and meropenem. Will obtain blood cultures. 04/21/2020 Covid-19 testing is pending. 04/22/2020-COVID test is pending. WBC count is 29,000. On IV vancomycin and cefepime. Presently on 100% BiPAP. Chest x-ray is looking worse. Unable to do the CT scan because patient condition is unstable at this time. (5) Acute blood loss anemia Is this a current diagnosis for this admission?: Yes Plan: Hemoglobin was a little bit better today than yesterday, now above 9. As she continues to eat a regular diet she should continue to have an increase in her hemoglobin. 04/21/2020 Hemoglobin is improving. Continue iron supplement. Recheck labs tomorrow. 04/22/2020-hemoglobin 9.7. Stable. Anticoagulation on hold at this time. (6) COPD (chronic obstructive pulmonary disease) Qualifiers: COPD type: emphysema Emphysema type: centrilobular Qualified Code(s): J43.2 - Centrilobular emphysema Is this a current diagnosis for this admission?: Yes Plan: Not acutely exacerbated. She does not take any medications for this at home. 04/21/2020 Not on inhaler therapy at home. Weaning the Solu-Medrol. Will taper oxygen to off as tolerated. We may need to initiate scheduled nebulizer treatments. 04/22/2020-patient has history of COPD presently on 100% oxygen and BiPAP. Bilateral air entry was severely decreased no wheezing present. (7) Sepsis Qualifiers: Sepsis type: sepsis due to unspecified organism Sepsis acute organ dysfunction status: with acute organ dysfunction Severe sepsis acute organ dysfunction type: acute respiratory failure Acute respiratory failure type: with hypoxia Severe sepsis shock status: without septic shock Qualified Code(s): A41.9 - Sepsis, unspecified organism; R65.20 - Severe sepsis without septic shock; J96.01 - Acute respiratory failure with hypoxia Is this a current diagnosis for this admission?: Yes Plan: Empiric antibiotics and steroids started. Believed to be due to healthcare associated pneumonia. She was tested negative for coronavirus a few days ago. 04/21/2020 Resolved 04/22/20--WBC count is 29,000 may be secondary to steroids. On IV vancomycin and cefepime. Blood cultures are negative. COVID test is pending. - Plan Summary Summary: The patient will be admitted to the medical floor where she will receive routine supportive and symptomatic cares. Serial hemoglobin and hematocrit measurements will be obtained. A gastroenterology or surgical consultation will be obtained to arrange for a colonoscopy evaluation after the patient's bleeding has resolved. She will receive Ativan 1 mg IV every 4 hours as needed for anxiety or restlessness. Her usual medications will be continued, as appropriate, once her medication list has been reconciled and verified. Serial INRs will be obtained. Patient will be on a cardiac diet. Smoking cessation is advised and counseled briefly at the bedside. A nicotine replacement patch is available for the patient's use, if desired.
[2020-04-22] MEDS ORDERED: FUROSEMIDE INJ/PF 40 MG/4 ML SDV IV SCH ×2 (10:00)
[2020-04-22] MEDS ORDERED: FUROSEMIDE 40 MG TABLET PO SCH (10:00)
[2020-04-22] MEDS: DEXAMETHASONE SOD PHOSPHATE INJ 4 MG/1 ML VIAL IV SCH ×2 (10:13→17:28)
[2020-04-22] MEDS: PANTOPRAZOLE SODIUM 40 MG VIAL IV SCH ×2 (10:14→22:13)
[2020-04-22 18:15] VITALS: BP 162/69
[2020-04-22] MEDS ORDERED: MORPHINE SULFATE 10 MG/ML INJ IV PRN (18:48)
[2020-04-22] MEDS ORDERED: METOPROLOL TARTRATE PF/INJ 5 MG/5 ML SDV IV PRN (21:22)
[2020-04-22] MEDS: VANCOMYCIN HCL 500 MG in DEXTROSE 5%-WATER 100 ML IV SCH (22:13)
[2020-04-23] MEDS ORDERED: LORAZEPAM INJ 2 MG/1 ML VIAL IV PRN (00:41)
[2020-04-23] MEDS ORDERED: MORPHINE SULFATE 10 MG/ML INJ IV PRN (00:42)
[2020-04-23] MEDS: DEXAMETHASONE SOD PHOSPHATE INJ 4 MG/1 ML VIAL IV SCH (01:08)
--- NOTE | 2020-04-23 22:05 | EKG REPORT ---
SEVERITY:- ABNORMAL ECG - VENTRICULAR-PACED RHYTHM : Confirmed by: Tia Solorzano MD 23-Apr-2020 22:05:18
--- NOTE | 2020-04-24 09:19 | Death Summary ---
Summary Date : 04/23/20 Time of :: 02:27 Autopsy: No Resuscitation Status: Comfort Measures Only - Final Diagnosis (1) GI bleeding Is this a current diagnosis for this admission?: Yes (2) Acute respiratory failure with hypoxia Is this a current diagnosis for this admission?: Yes (3) Longstanding persistent atrial fibrillation Is this a current diagnosis for this admission?: Yes (4) HCAP (healthcare-associated pneumonia) Is this a current diagnosis for this admission?: Yes (5) Acute blood loss anemia Is this a current diagnosis for this admission?: Yes (6) COPD (chronic obstructive pulmonary disease) Is this a current diagnosis for this admission?: Yes (7) Sepsis Is this a current diagnosis for this admission?: Yes Hospital Course:: 79-year-old female admitted for acute GI bleed. Coumadin is on hold. Hemoglobin is stable around 9.7. Patient is on Coumadin for anticoagulation. Patient developed acute respiratory failure with hypoxia patient is now 100% oxygen. On BiPAP. CODE STATUS is DNR. WBC count is 29,000 today chest x-ray looks worse. CT chest was requested but unable to do so because patient is on 100% oxygen. COVID test is pending at this time. Blood cultures are negative so far. Currently on IV cefepime and vancomycin. Overall prognosis poor condition is critical. Discussed the plan with the grandson he does not want comfort care measures at this time. 1) GI bleeding Qualifiers: GI bleed type/associated pathology: diverticulosis Qualified Code(s): K57.91 - Diverticulosis of intestine, part unspecified, without perforation or abscess with bleeding Is this a current diagnosis for this admission?: Yes Plan: The likely suspect is a diverticular bleed. This study was technically difficult and the plan is to let her INR continued to trend down and make sure she does not bleed. An outpatient colonoscopy can be arranged at a later date. She did have a polyp in there but it was unable to be snared because of the extensive diverticular disease. Bleeding seems to have stopped. 04/21/2020 Diverticular bleed. Hemoglobin is improving. Continue to hold anticoagulation. Ferrous sulfate being administered 04/22/2020-hemoglobin is stable around 9.7. Coumadin on hold. Receiving iron supplementations. plan is to repeat the labs tomorrow. (2) Acute respiratory failure with hypoxia Is this a current diagnosis for this admission?: Yes Plan: Supplemental O2 to maintain SPO2 greater than 90% April 21, 2020 Still requiring 5 L nasal cannula. I will resume part of her furosemide and an echocardiogram in 2018 did not suggest systolic or diastolic failure. We will continue broad-spectrum antibiotics. 04/22/2020-patient is on 100% oxygen and BiPAP. Chest x-ray is worsening. White cell count is 29,000. Presently on IV cefepime and IV vancomycin. CODE STATUS is DNR/DNI. Cardiogram is requested. blood Cultures are negative so far. Overall prognosis poor condition is critical. ABG done last night pH is 7.28/PCO2 47/PO2 43 oxygen saturation is 73% on 100% oxygen. (3) Longstanding persistent atrial fibrillation Is this a current diagnosis for this admission?: Yes Plan: 04/21/2020 Continue amiodarone as diltiazem. Pulmonary warfarin due to GI bleeding. 04/22/20-patient's heart rate in the 80s. To continue amiodarone and diltiazem. (4) HCAP (healthcare-associated pneumonia) Is this a current diagnosis for this admission?: Yes Plan: Empirically started on vancomycin and meropenem. Will obtain blood cultures. 04/21/2020 Covid-19 testing is pending. 04/22/2020-COVID test is pending. WBC count is 29,000. On IV vancomycin and cefepime. Presently on 100% BiPAP. Chest x-ray is looking worse. Unable to do the CT scan because patient condition is unstable at this time. (5) Acute blood loss anemia Is this a current diagnosis for this admission?: Yes Plan: Hemoglobin was a little bit better today than yesterday, now above 9. As she continues to eat a regular diet she should continue to have an increase in her hemoglobin. 04/21/2020 Hemoglobin is improving. Continue iron supplement. Recheck labs tomorrow. 04/22/2020-hemoglobin 9.7. Stable. Anticoagulation on hold at this time. (6) COPD (chronic obstructive pulmonary disease) Qualifiers: COPD type: emphysema Emphysema type: centrilobular Qualified Code(s): J43.2 - Centrilobular emphysema Is this a current diagnosis for this admission?: Yes Plan: Not acutely exacerbated. She does not take any medications for this at home. 04/21/2020 Not on inhaler therapy at home. Weaning the Solu-Medrol. Will taper oxygen to off as tolerated. We may need to initiate scheduled nebulizer treatments. 04/22/2020-patient has history of COPD presently on 100% oxygen and BiPAP. Bilateral air entry was severely decreased no wheezing present. 04/23/2020-patient was made comfort care measures only, after taking of the BiPAP patient within few minutes peacefully. (7) Sepsis Qualifiers: Sepsis type: sepsis due to unspecified organism Sepsis acute organ dysfunction status: with acute organ dysfunction Severe sepsis acute organ dysfunction type: acute respiratory failure Acute respiratory failure type: with hypoxia Severe sepsis shock status: without septic shock Qualified C ode(s): A41.9 - Sepsis, unspecified organism; R65.20 - Severe sepsis without septic shock; J96.01 - Acute respiratory failure with hypoxia Is this a current diagnosis for this admission?: Yes Plan: Empiric antibiotics and steroids started. Believed to be due to healthcare associated pneumonia. She was tested negative for coronavirus a few days ago. 04/21/2020 Resolved 04/22/20--WBC count is 29,000 may be secondary to steroids. On IV vancomycin and cefepime. Blood cultures are negative. COVID test is pending. 04/23/2020-status was changed to comfort care measures only and patient peacefully around 2:27 AM on 04/23/2020. 8.Comfort care measures only. Patient's grandson who has the power of trial attorney requested for comfort care measures only on 04/23/2020 during the night. - Plan Summary Summary: The patient will be admitted to the medical floor where she will receive routine supportive and symptomatic cares. Serial hemoglobin and hematocrit measurements will be obtained. A gastroenterology or surgical consultation will be obtained to arrange for a colonoscopy evaluation after the patient's bleeding has resolved. She will receive Ativan 1 mg IV every 4 hours as needed for anxiety or restlessness. Her usual medications will be continued, as appropriate, once her medication list has been reconciled and verified. Serial INRs will be obtained. Patient will be on a cardiac diet. Smoking cessation is advised and counseled briefly at the bedside. A nicotine replacement patch is available for the patient's use, if desired. 04/24/2020-patient was made comfort care measures 04/22/20. Patient peacefully around 2:27 AM on 04/23/2020.
== END 2020-04-23 02:27 | disposition expired | DRG 377 ==
LOC: ER 17:28 → EH 04-16 02:56 → 4N 04-16 03:50 → 3N 04-20 19:20
PROVIDERS: ADMIT Emergency Medicine; ATTEND Internal Medicine
PROC: 0DJ08ZZ Inspection of Upper Intestinal Tract, Via Natural or Artificial Opening Endoscopic (ICD-10-PCS; principal; 2020-04-18 08:00)
PROC: 0DJD8ZZ Inspection of Lower Intestinal Tract, Via Natural or Artificial Opening Endoscopic (ICD-10-PCS; 2020-04-18 08:00)
DX: K57.91 Diverticulosis of intestine, part unspecified, without perforation or abscess with bleeding (principal); J96.01 Acute respiratory failure with hypoxia; R65.20 Severe sepsis without septic shock; A41.9 Sepsis, unspecified organism; J18.9 Pneumonia, unspecified organism; I13.0 Hypertensive heart and chronic kidney disease with heart failure and stage 1 through stage 4 chronic kidney disease, or unspecified chronic kidney disease; I48.11 Longstanding persistent atrial fibrillation; D62 Acute posthemorrhagic anemia; J43.2 Centrilobular emphysema; Z51.5 Encounter for palliative care; Y95 Nosocomial condition; Z20.828 Contact with and (suspected) exposure to other viral communicable diseases; F17.200 Nicotine dependence, unspecified, uncomplicated; E78.5 Hyperlipidemia, unspecified; N18.9 Chronic kidney disease, unspecified; I25.10 Atherosclerotic heart disease of native coronary artery without angina pectoris; K64.8 Other hemorrhoids; K62.1 Rectal polyp; K63.5 Polyp of colon; K31.7 Polyp of stomach and duodenum; K44.9 Diaphragmatic hernia without obstruction or gangrene; Z71.6 Tobacco abuse counseling; I25.2 Old myocardial infarction; Z95.2 Presence of prosthetic heart valve; Z95.810 Presence of automatic (implantable) cardiac defibrillator; Z95.1 Presence of aortocoronary bypass graft
CPT/HCPCS: 36415; 36600; 43235; 45378; 71045; 74176; 80048; 80053; 80202; 81001; 813; 82271; 82803; 83735; 83880; 84132; 84484; 85025; 85027; 85610; 86850; 86900; 86901; 87040; 87070; 87635; 93005; 93010; 94640; 94660; 96374; 96376; 99140; 99285; C9113; C9803; J0171; J0692; J1100; J1940; J2060; J2185; J2250; J2270; J2405; J2704; J2920; J3370; J3490; J7030; J7060